=== PATIENT | male | born 1945 | race Caucasian/White ===

== ENCOUNTER 2016-10-09 17:58 | Emergency (ER) ==
[2016-10-09 18:11] VITALS: BP 148/105; TEMP 98.4; BMI 31.5
--- NOTE | 2016-10-09 18:42 | ED.PDOC ---
General ED Provider: Dr. HEIDY MA Chief Complaint: Fall Stated Complaint: FALL Time Seen by Physician: 18:00 (ARRIVED IN NO DISTRESS ) Mode of Arrival: Stretcher Information Source: Patient Exam Limitations: No limitations Primary Care Provider: YANN RODRÍGUEZ Nursing and Triage Documentation Reviewed and Agree: Yes Trauma/Injury Complaint Exam - Trauma Complaint/Exam Location of Pain or Injury: Reports: Head, Neck, Chest, Abdomen, Back Mechanism of Injury: Reports: Fall Onset/Duration: TODAY Symptoms Are: Resolved Timing of Treatment: Immediate Initial Severity: Mild Current Severity: Mild Character: Reports: Aching Aggravating: Reports: None Alleviating: Reports: None Associated Signs and Symptoms: Denies: LOC, Confusion, Memory loss, Lethargy, Vomiting, Bleeding, Bruising, Swelling, Extremity disuse, Painful respiration, Hoarseness, Dysphagia, Hemoptysis, Significant blood loss Penetrating Injury Risk Factors: Reports: None Nexus Low Risk Criteria: No evidence of intoxicat., No Altered LOC, No focal neuro deficit, No distracting injuries Immobilization Removed Post Exam: No Glascow Coma Scale (see protocol): 15 Trauma Findings: Absent: Racoon eyes, Hemotympanum, Nasal deformity, Dental tenderness, Dental injury, Dental malocclusion, Neck tenderness, Neck spasm, SubQ Air, Crepitus, Airway obstructed, Labored respirations, Decreased breath sounds, Weak pulses, Absent pulses, Abdominal distention, Pelvic instability, Meatal blood Skin Findings: Present: Abrasion (LEFT EAR) Review of Systems - Review Of Systems Constitutional: Reports: No symptoms Eyes: Reports: No symptoms Ears, Nose, Mouth, Throat: Reports: No symptoms Respiratory: Reports: No symptoms Cardiac: Reports: No symptoms GI: Reports: No symptoms : Reports: No symptoms Musculoskeletal: Reports: No symptoms Skin: Reports: No symptoms Neurological: Reports: No symptoms Endocrine: Reports: No symptoms Hematologic/Lymphatic: Reports: No symptoms All Other Systems: Reviewed and Negative Past Medical History - Past Medical History Previously Healthy: No Endocrine: Reports: DM 2 Cardiovascular: Reports: Hypertension, Other (Bradycaria ,old record - inoperable left carotid aneurysm) Respiratory: Reports: None Hematological: Reports: None Gastrointestinal: Reports: GERD Genitourinary: Reports: None, Other (old record-acute renal failure) Neuro/Psych: Reports: CVA, Anxiety, Depression, 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 ), Other (old recordneuropathy) Musculoskeletal: Reports: Arthritis, Back Pain, Joint Pain Cancer: Reports: None Other Pertinent Past Medical History: Left carotid aneurysm, Chronic back pain and chronic neck pain - Surgical History General Surgical History: Reports: Cholecystectomy, Back Surgery, Other ( carotid endarterectomy ) - Family History Family History: Reports: Heart (old record-father ID), Diabetes (old record-5 siaters 3 brothers), Cancer (old record-father), Other (old record- brother with aids) - Social History Smoking Status: Former smoker Hx Substance Use: No Alcohol Screening: None - Immunizations Influenza Vaccine within 12 Months: No Pneumococcal Vaccine up to Date: No Physical Exam - Physical Exam Appearance: Well-appearing, No pain distress, Well-nourished Eyes: MAXWELL, EOMI, Conjunctiva clear ENT: Ears normal, Nose normal, Oropharynx normal Respiratory: Airway patent, Breath sounds clear, Breath sounds equal, Respirations nonlabored Cardiovascular: RRR, Pulses normal, No rub, No murmur GI/: Soft, Nontender, No masses, Bowel sounds normal, No Organomegaly Musculoskeletal: Normal strength, ROM intact, No edema, No calf tenderness Skin: Warm, Dry (ABRASION LEFT EAR) Neurological: Sensation intact, Motor intact, Reflexes intact, Cranial nerves intact, Alert, Oriented Psychiatric: Affect appropriate, Mood appropriate Critical Care Note - Critical Care Note Total Time (mins): 0 Course - Course Orders, Labs, Meds: Orders Category Date Time Status CT ABDOMEN/PELVIS WO CONTRAST Stat RADS 10/09/16 18:[address] CERVICAL SPINE W/O CONTRAST Stat RADS 10/09/16 18:[address] CHEST W/O CONTRAST Stat RADS 10/09/16 18:[address] HEAD W/O CONTRAST Stat RADS 10/09/16 18:[address] LUMBAR SPINE W/O CONTRAST Stat RADS 10/09/16 18:[address] THORACIC SPINE W/O CONTRAST Stat RADS 10/09/16 18:38 Ordered Vital Signs: Temp Pulse Resp BP Pulse Ox 10/09/16 18:01 98.4 F 114 H 20 148/105 H 93 L Departure - Departure Time of Disposition: 20:00 Disposition: HOME SELF-CARE Discharge Problem: Injury of head Qualifiers: Encounter type: initial encounter Qualifier Code: (S09.90XA) Unspecified injury of head, initial encounter Instructions: Head Injury (ED) Condition: Good Pt referred to PMD for follow-up: No Allergies/Adverse Reactions: Allergies No Known Allergies Allergy (Verified 05/07/16 13:00) Home Medications: Ambulatory Orders Metformin HCl 1,000 mg PO BID 05/01/15 Omeprazole [Prilosec] 20 mg PO QDAC 05/01/15 Pregabalin [Lyrica] 100 mg PO TID 05/01/15 Temazepam 30 mg PO BEDTIME 05/01/15 Budesonide/Formoterol Fumarate [Symbicort 80-4.5 Mcg Inhaler] 2 puff IH BID #1 inh 01/15/16 Morphine Sulfate [Morphine Sulfate Tab] 15 mg PO Q8H #1 tablet 01/26/16
--- NOTE | 2016-10-09 19:45 | CT ---
Exam: CT exam of the brain without intravenous contrast. Comparison: 01/19/2016. Reason for exam: Pain. FINDINGS: Densely calcified plaque is seen in the left vertebral artery and both internal carotid a rteries. No acute intracranial hemorrhage, mass effect, or territorial infarction. There is similar appearing prominence of the lateral ventricles with temporal horns. Ex vacuo dilatation is seen in the left posterior horn from previous infarct. Hypodensities in the basal gangliar consistent with old lacun ar infarcts. Hypodensity in the right frontal lobe adjacent to the lateral ventricle may represent chronic small vessel disease or old infarct. Imaging findings are not significantly changed when co mpared to the previous exam performed 01/19/2016. There is no extraaxial fluid collection. The calvarium is intact without displaced fracture. The par anasal sinuses and mastoid air cells are unopacified. Wojciech cisterna magna or posterior fossa cyst. There is mild cerebellar atrophy. Impression: 1. No acute intracranial findings. 2. Parenchymal changes consistent with old infarcts, microvascular disease, and senescent change. 3. Densely calcified left vertebral and bilateral internal carotid arteries. Report faxed at [phone] hours on 10/09/2016
--- NOTE | 2016-10-09 19:51 | CT ---
EXAM: CT thoracic spine without intravenous contrast 10/09/2016. Sagittal and coronal reformatted images obtained HISTORY: Trauma COMPARISON: 01/19/2016 FINDINGS: The vertebral bodies of thoracic spine appear intact without evidence of acute fracture. Multilevel chronic degenerative endplate change. Multilevel anterior wedging configuration. Flowi ng anterior osteophyte formation throughout the central lower aspect of the thoracic spine appears s imilar to the prior study. Chronic facet arthropathy. The facet joints align normally. No fracture or subluxation identified at any level. IMPRESSION: No acute post traumatic osseous abnormality of the thoracic spine.
--- NOTE | 2016-10-09 19:52 | CT ---
EXAM: CT scan thorax without contrast HISTORY: Trauma COMPARISON: CT scan thorax 01/19/2016 FINDINGS: Contiguous axial images obtained through the thorax without contrast utilizing 5-mm colli mation. Sagittal and coronal reconstructions were imaged and reviewed.. The thoracic inlet is unre markable. There are subcentimeter prevascular pretracheal lymph nodes. Hilar structures not well e valuated without contrast. The heart is normal in size with coronary artery calcification There is a 8 mm opacity posteriorly within the right upper lobe which merits follow-up. There is minimal at electasis at the left lung base. There is a simple cyst upper pole left kidney.. Review of bone win dows reveals no evidence of lytic or blastic lesions. Degenerative changes are seen within the mid lower thoracic spine. IMPRESSION: No acute intrathoracic findings. New 8 mm opacity right upper lobe which merits follow-up. Minimal left basilar atelectasis.. Prior cholecystectomy.
--- NOTE | 2016-10-09 19:52 | CT ---
EXAM: CT lumbar spine without intravenous contrast 10/09/2016. Sagittal and coronal reformatted im ages obtained HISTORY: Trauma COMPARISON: 01/19/2016 FINDINGS: Anatomic alignment appears stable. The vertebral bodies appear intact without evidence o f acute fracture. Multilevel chronic degenerative disc disease. Multilevel disc space narrowing wi th endplate erosion. These findings appear similar to the prior study Chronic facet arthropathy also appears similar to the previous examination. There is no acute fracture or subluxation at any level. IMPRESSION: No acute post traumatic osseous abnormality of the lumbar spine.
--- NOTE | 2016-10-09 19:53 | CT ---
EXAM: CT of the cervical spine without contrast. HISTORY: Injury. PROCEDURE: Contiguous axial CT images of the cervical spine without contrast with coronal and sagit berna reformats. FINDINGS: There is normal alignment of the cervical vertebral bodies and facets. The vertebral body heights are maintained. There is multilevel disc space narrowing. There are posterior osteophytes at multiple levels of the cervical spine. There is multilevel facet arthropathy. There is a moder ate disc bulge at C4-C5 which is not well visualized by CT. The C1-2 relationship is maintained. No prevertebral soft tissue abnormality. Impression: No evidence of fracture. Normal alignment of the cervical spine with degenerative changes as described. Moderate disc bulge at C4-C5.
--- NOTE | 2016-10-09 20:09 | CT ---
Exam: CT exam of the abdomen pelvis without intravenous contrast. Comparison: 05/07/2016. Reason for exam: Trauma. FINDINGS: Dependent atelectasis is seen in the partially imaged lung bases. 1.3 cm hypodensity in the right hepatic lobe. No obvious intrahepatic ductal dilatation. The gallb ladder is been removed. There is an only fat containing para esophageal hernia. The spleen, adrenal glands, and pancreas are grossly unremarkable. Similar appearing left renal cyst. No hydronephrosis, nephrolithiasis, or hydroureter. No focal small bowel dilatation or transition point. The appendix is not seen. No inflammatory changes are seen within the mesenteric or pelvic fat. There is no pelvic free fluid . No intra-abdominal free air. Diverticular disease is seen throughout the descending and rectosigmoid colon. No osteoblastic or osteolytic lesions. Moderate degenerative changes are seen throughout the thoracolumbar spine with bridging anterior ost eophyte formation and facet hypertrophy. There is exaggeration of the lumbar lordotic curve. Similar appearing inguinal hernias. Impression: 1. No acute traumatic findings are seen within the abdomen or pelvis. 2. Diverticulosis without diverticulitis. 3. Hepatic steatosis. 4. Hiatal hernia. Image interpretation faxed at 2002 hours on 10/09/2016
== END 2016-10-10 09:35 | disposition home or self-care (01) ==
LOC: ED 17:58
DX: S09.90XA Unspecified injury of head, initial encounter (principal); M54.2 Cervicalgia; R07.89 Other chest pain; R10.9 Unspecified abdominal pain; M54.9 Dorsalgia, unspecified; R91.1 Solitary pulmonary nodule; W19.XXXA Unspecified fall, initial encounter
CPT/HCPCS: 99283

== ENCOUNTER 2017-05-29 08:32 | Inpatient (IN) ==
[2017-05-29] MEDS ORDERED: SODIUM CHLORIDE 1,000 ML IV STA (08:40)
[2017-05-29] MEDS ORDERED: CARDIZEM INJ ONE ×3 (09:20→23:18)
[2017-05-29] MEDS: CARDIZEM INJ IVP STA ×2 (09:22→09:23)
[2017-05-29] MEDS ORDERED: CARDIZEM INJ 125 MG in SODIUM CHLORIDE 100 ML IV SCH ×2 (09:30→10:00)
--- NOTE | 2017-05-29 10:07 | CT ---
EXAM: CT scan of the head without contrast HISTORY: Fall TECHNIQUE: Imaging of the head was performed without intravenous contrast. 5 mm thin axial images a nd coronal and sagittal images were provided for interpretation. Comparison CT scan of the head of 10/15/2016. FINDINGS: The lateral ventricles and cortical sulci are prominent from atrophy. Low density changes are seen within the supratentorial white matter. There is stable appearance of encephalomalacia see n within the left occipital lobe. There is no mass effect. Small old lacunar infarcts are seen with in the basal ganglia bilaterally. There are no extraaxial collections. The basal cisterns are paten t. There is mucosal thickening seen within the left maxillary sinus. The remainder of the paranasal sinuses and mastoid air cells are otherwise clear. IMPRESSION: No acute traumatic abnormalities are seen. Stable appearance of an old left occipital lobe infarct. Chronic small vessel ischemic changes seen within the supratentorial white matter.
--- NOTE | 2017-05-29 10:32 | CT ---
EXAM: CT of the lumbar spine without contrast. TECHNIQUE: Helical CT of the lumbar spine was performed without contrast with coronal and sagittal r econstructions. COMPARISON: Lumbar spine CT from 10/09/[address] from today HISTORY: Trauma FINDINGS: There is no compression or subluxation. Alignment is anatomic. There are no pars defects . There is no bony effacement the canal. There is no evidence for laminar or transverse process or s pinous process fracture. The pedicles are intact. The facets are anatomically aligned. Soft tissue s demonstrate no acute abnormality. There is no acute abnormality seen in the visualized portion of the bony pelvis. There is advanced degenerative change. There are five lumbar-type vertebral bodies. There is a hiatal hernia. There is advanced calcific atherosclerosis. There is colonic diverticulos is. IMPRESSION: 1. No acute abnormality in the lumbar spine. 2. Advanced degenerative changes and soft tissue findings as above.
--- NOTE | 2017-05-29 10:35 | CT ---
EXAM: CT abdomen pelvis without contrast HISTORY: Fall COMPARISON: None TECHNIQUE: CT abdomen pelvis performed without intravenous contrast. Coronal and sagittal reformatt ed images obtained. FINDINGS: Moderate atherosclerosis. Moderate right and small left fat containing inguinal hernia. Colonic diverticulosis. There is subcutaneous edema overlying the left posterior thigh with this reg ion, incompletely imaged. The bones are demineralized. Sacroiliac joints intact. No fracture or di slocation. Mild osteoarthritis of the hips with small osteophyte formation. Degenerative change in t he spine. IMPRESSION: 1. No fracture or dislocation. 2. Subcutaneous edema overlying left posterior thigh, likely contusion. 3. Chronic and incidental findings as described.
--- NOTE | 2017-05-29 10:42 | CT ---
EXAM: CT cervical spine without contrast. TECHNIQUE: Axial CT of the cervical spine was performed without contrast with coronal and sagittal r econstructions. HISTORY: Trauma and neck pain COMPARISON: Cervical spine CT from 10/09/[address] from today FINDINGS: There is no acute fracture or subluxation. There is a modest scoliosis. There is no acute bony effacement of the canal or the foramina. The dens is intact. The craniocervical junction is a natomically aligned. The visualized portion of the temporal bones is normal. The facets are proper ly aligned. There is no evidence for transverse or spinous process fracture. The lamina are intact. There is very advanced degenerative disc disease particularly at C5-6 and C6-7. There are no upper thoracic posterior rib fractures. There is no apical pneumothorax. There are ext ensive left upper lung pulmonary infiltrates partially visualized. The prevertebral soft tissues are normal thickness. Visualized intracranial contents show no acute abnormality. There is advanced calc ific atherosclerosis. IMPRESSION: 1. No acute fracture in the cervical spine. 2. Advanced degenerative changes. 3. Left upper lobe pulmonary infiltrates.
--- NOTE | 2017-05-29 10:42 | CT ---
EXAM: CT thoracic spine without contrast TECHNIQUE: Helical CT of the thoracic spine was performed without contrast with coronal and sagittal reconstructions COMPARISON: Cervical and lumbar spine CT from today and thoracic spine CT from 10/09/2016 HISTORY: Trauma FINDINGS: There is no acute fracture or dislocation or subluxation. There is a mild scoliosis. There is no compression fracture. There is no bony effacement of the canal. The lamina and facets are in tact. There is no transverse or spinous process fracture. There are no rib fractures seen. There i s no pneumothorax in the visualized lung carson. There are very extensive left upper lobe multifocal pulmonary infiltrates which are new compared to the earlier CT. There is advanced calcific atheroscl erosis. There is a hiatal hernia. There are advanced degenerative changes with multifocal disc space narrowing and osteophyte formation. There is flowing anterior osteophytosis seen anteriorly in the lower thoracic region. IMPRESSION: 1. No acute bony abnormality in the thoracic spine. No bony effacement the canal. 2. New multifocal left upper lobe infiltrates. Would recommend correlation with chest x-ray or ches t CT. 3. Very advanced degenerative changes in the thoracic spine. 4. Other soft tissue findings as above.
[2017-05-29] MEDS ORDERED: VANCOMYCIN 1,000 MG in SODIUM CHLORIDE 200 ML IV STA (11:19)
[2017-05-29] MEDS ORDERED: ELIQUIS PO STA (11:22)
--- NOTE | 2017-05-29 11:25 | ED.PDOC ---
General ED Provider: Dr. HEIDY MA Chief Complaint: Fall Stated Complaint: fall Time Seen by Physician: 08:32 Mode of Arrival: Ambulance Information Source: Patient, EMT Exam Limitations: Clinical condition Primary Care Provider: YANN RODRÍGUEZ Nursing and Triage Documentation Reviewed and Agree: Yes Reviewed sepsis parameters & appropriate labs ordered?: Yes System Inflammatory Response Syndrome: Pulse >90 BPM Sepsis Protocol: For patient's 13 years and over: Temp is 96.8 and below OR 101 and greater Pulse >90 BPM Resp >20/minute Acutely Altered Mental Status Are patient's symptoms suggestive of a new infection, such as: -Pneumonia -Skin, Soft Tissue -Endocarditis -UTI -Bone, Joint Infection -Implantable Device -Acute Abdominal Infection -Wound Infection -Meningitis -Blood Stream Catheter Infection -Unknown Miscellaneous Complaint Exam - Complex/Multi-System Complaint/Exam Onset/Duration: found on the fllor since last night in a pool of urine arrived aox3 Symptoms Are: Still present Episodes Lasting: Hours Initial Severity: Moderate Current Severity: Moderate Location of Pain: 0 Pain Radiates to: 0 Character: 0 Aggravatin Alleviatin Associated Signs and Symptoms: Reports: Agitation, Cough, Palpitations, Back pain (mild ). 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 Quality Indicators for AMI: EKG in 10min. Quality Indicator For Non-Traumatic Chest Pain/Syncope: EKG Performed Review of Systems - Review Of Systems Constitutional: Reports: Malaise, Weakness Eyes: Reports: No symptoms Ears, Nose, Mouth, Throat: Reports: No symptoms Respiratory: Reports: Cough Cardiac: Reports: Palpitations GI: Reports: No symptoms : Reports: No symptoms Musculoskeletal: Reports: Back pain Skin: Reports: No symptoms Neurological: Reports: No symptoms Endocrine: Reports: No symptoms Hematologic/Lymphatic: Reports: No symptoms All Other Systems: Reviewed and Negative Past Medical History - Past Medical History Previously Healthy: No Endocrine: Reports: DM 2 Cardiovascular: Reports: Hypertension, Other (Bradycaria ,old record - inoperable left carotid aneurysm) Respiratory: Reports: None Hematological: Reports: None Gastrointestinal: Reports: GERD Genitourinary: Reports: None, Other (old record-acute renal failure) Neuro/Psych: Reports: CVA, Anxiety, Depression, 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 ), Other (old recordneuropathy) Musculoskeletal: Reports: Arthritis, Back Pain, Joint Pain Cancer: Reports: None Other Pertinent Past Medical History: Left carotid aneurysm, Chronic back pain and chronic neck pain - Surgical History General Surgical History: Reports: Cholecystectomy, Back Surgery, Other ( carotid endarterectomy ) - Family History Family History: Reports: Heart (old record-father CT), Diabetes (old record-5 siaters 3 brothers), Cancer (old record-father), Other (old record- brother with aids) - Social History Smoking Status: Former smoker Hx Substance Use: No Alcohol Screening: None - Immunizations Influenza Vaccine within 12 Months: No Pneumococcal Vaccine up to Date: No Physical Exam - Physical Exam Appearance: Ill-appearing Eyes: MAXWELL, EOMI, Conjunctiva clear ENT: Ears normal, Nose normal, Oropharynx normal Respiratory: Airway patent, Breath sounds clear, Breath sounds equal, Respirations nonlabored Cardiovascular: Irregular rhythm, Tachycardia GI/: Soft, Nontender, No masses, Bowel sounds normal, No Organomegaly Musculoskeletal: Normal strength, ROM intact, No edema, No calf tenderness Skin: Warm, Dry, Normal color Neurological: Sensation intact, Motor intact, Reflexes intact, Cranial nerves intact, Alert, Oriented Psychiatric: Affect appropriate, Mood appropriate Interpretation - Radiology Interpretation Radiology Interpretation By: Radiologist Radiology Results: No acute changes Procedures - IV/Art Line Insertion Location: left Type of Line: External Jugular (by rafati first attempt , the area was preped with betadine) Number of Attempts: 1 Blood Return Positive: Yes Re-Evaluation - Re-Evaluation Time of Re-Evaluation: 10:00 Status: Improved Vital Signs Stable: Yes Pain Level: 0 Appearance: NAD Lungs: Clear Neuro: Alert and Oriented X3 CV: Other (tachycaric irregular) Physician Notification - Case Discussed Physician Notified: carina Time of Notification: 11:26 Admit To: Inpatient, SCU Critical Care Note - Critical Care Note Total Time (mins): 0 Course - Course Hematology/Chemistry: 05/29/17 09:00 05/29/17 09:00 Orders, Labs, Meds: Lab Review 05/29/17 05/29/17 05/29/17 08:38 09:00 09:00 WBC 23.30 H RBC 5.18 Hgb 14.8 Hct 44.5 MCV 85.9 MCH 28.6 MCHC 33.3 RDW Coeff of Franko 14.3 Plt Count 230 Immature Gran % (Auto) 1.2 Neut % (Auto) 90.4 Lymph % (Auto) 1.7 L [place] % (Auto) 6.6 Eos % (Auto) 0.0 Baso % (Auto) 0.1 Immature Gran # (Auto) 0.3 Neut # 21.1 H Lymph # 0.4 L [place] # 1.5 Eos # 0.0 Baso # 0.0 Puncture Site r brach O2 Saturation 99.0 ABG pH 7.43 ABG pCO2 23.0 L ABG pO2 120.0 H ABG HCO3 15 L ABG Total CO2 16 L ABG Base Excess -9 L James Test + FiO2 % 21.0 Sodium 140 Potassium 3.9 Chloride 108 H Carbon Dioxide 14 L Anion Gap 21.9 BUN 43 H Creatinine 1.53 H Estimated GFR (MDRD) 45.00 BUN/Creatinine Ratio 28.10 Glucose 354 H Lactic Acid Calcium 10.1 Total Bilirubin 1.4 H AST 51 H ALT 30 Alkaline Phosphatase 106 Total Creatine Kinase 2993 CK-MB (CK-2) 10.5 H* CK-MB (CK-2) % 0.64827 Troponin I 0.1960 Total Protein 7.6 Albumin 3.1 L Globulin 4.5 Albumin/Globulin Ratio 0.69 Procalcitonin TSH Free T4 05/29/17 05/29/17 05/29/17 09:00 09:00 09:00 WBC RBC Hgb Hct MCV MCH MCHC RDW Coeff of Franko Plt Count Immature Gran % (Auto) Neut % (Auto) Lymph % (Auto) [place] % (Auto) Eos % (Auto) Baso % (Auto) Immature Gran # (Auto) Neut # Lymph # [place] # Eos # Baso # Puncture Site O2 Saturation ABG pH ABG pCO2 ABG pO2 ABG HCO3 ABG Total CO2 ABG Base Excess James Test FiO2 % Sodium Potassium Chloride Carbon Dioxide Anion Gap BUN Creatinine Estimated GFR (MDRD) BUN/Creatinine Ratio Glucose Lactic Acid 59.6 H Calcium Total Bilirubin AST ALT Alkaline Phosphatase Total Creatine Kinase CK-MB (CK-2) CK-MB (CK-2) % Troponin I Total Protein Albumin Globulin Albumin/Globulin Ratio Procalcitonin 1.85 TSH 0.408 Free T4 1.56 H Orders Category Date Time Status ADMIT PATIENT INPATIENT .TO SCU (MONITORED BED) ADMISSION 05/29/17 11:16 Ordered ABG DRAW REQUEST Stat CARDIO 05/29/17 08:38 Completed EKG-(ED ONLY) Stat CARDIO 05/29/17 08:37 Completed ACTIVITY .BR with BRP CARE 05/29/17 11:16 Ordered BLOOD GLUCOSE MONITORING ACCUCHECK Q6H CARE 05/29/17 11:16 Ordered GIVE HS SNACK 2100 CARE 05/29/17 11:19 Ordered INTAKE & OUTPUT Q8HR CARE 05/29/17 11:16 Ordered TELEMETRY MONITORING TELE CARE 05/29/17 11:17 Ordered VITAL SIGNS Q4HR CARE 05/29/17 11:16 Ordered ADA 1800 JAEL. DIET DIETARY 05/29/17 Lunch Ordered HS SNACK DIETARY 05/29/17 Dinner Ordered ED IV/MEDIPORT/POWERPORT .ONCE EMERGENCY 05/29/17 08:37 Active ABG Stat LAB 05/29/17 08:38 Completed BLOOD CULTURE (ED ONLY) Stat LAB 05/29/17 09:00 Received CBC W/ AUTO DIFF DAILY@0600 LAB 05/30/17 06:00 Ordered CBC W/ AUTO DIFF DAILY@0600 LAB 05/31/17 06:00 Ordered CBC W/ AUTO DIFF Stat LAB 05/29/17 09:00 Completed COMPREHENSIVE METABOLIC PANEL DAILY@0600 LAB 05/30/17 06:00 Ordered COMPREHENSIVE METABOLIC PANEL DAILY@0600 LAB 05/31/17 06:00 Ordered COMPREHENSIVE METABOLIC PANEL Stat LAB 05/29/17 09:00 Completed CREATINE KINASE Q8H LAB 05/29/17 17:30 Ordered CREATINE KINASE Q8H LAB 05/30/17 01:30 Ordered CREATINE KINASE Stat LAB 05/29/17 09:00 Completed FREE T4 (FREE THYROXINE) Stat LAB 05/29/17 09:00 Completed LACTIC ACID Stat LAB 05/29/17 09:00 Completed PROCALCITONIN Stat LAB 05/29/17 09:00 Completed THYROID STIMULATING HORMONE Stat LAB 05/29/17 09:00 Completed TROPONIN I Q8H LAB 05/29/17 17:30 Ordered TROPONIN I Q8H LAB 05/30/17 01:30 Ordered TROPONIN I Stat LAB 05/29/17 09:00 Completed URINALYSIS C & S IF INDICATED Stat LAB 05/29/17 08:37 Uncollected 0.9 % Sodium Chloride [Saline Flush] MEDS 05/29/17 08:37 Active 1 syr IVF PRN PRN 0.9 % Sodium Chloride [Sodium Chloride] 100 ml MEDS 05/29/17 10:00 Active Diltiazem HCl Inj [Cardizem Inj] 125 mg IV 5 mg/hr Apixaban [Eliquis] MEDS 05/29/17 21:00 Ordered 5 mg PO BID Apixaban [Eliquis] MEDS 05/29/17 11:22 Stat 5 mg PO ONCE STA Ceftriaxone Sodium [Rocephin] 1 gm MEDS 05/29/17 11:30 Ordered 0.9 % Sodium Chloride [Sodium Chloride] 50 ml IV DAILY Diltiazem HCl Inj [Cardizem Inj] MEDS 05/29/17 09:17 Discontinued 20 mg IVP ONCE STA Diltiazem HCl Inj [Cardizem Inj] MEDS 05/29/17 09:20 Discontinued 50 mg .ROUTE .STK-MED ONE Sodium Chloride 0.9% [Sodium Chloride] 1,000 ml MEDS 05/29/17 08:40 Active IV 125 mls/hr Sodium Chloride 0.9% [Sodium Chloride] 1,000 ml MEDS 05/29/17 11:30 Ordered IV 75 mls/hr Vancomycin HCl [Vancomycin] 1,000 mg MEDS 05/29/17 11:19 Ordered 0.9 % Sodium Chloride [Sodium Chloride] [address] CERVICAL SPINE W/O CONTRAST Stat RADS 05/29/17 08:[address] CHEST W/O CONTRAST Stat RADS 05/29/17 11:[address] HEAD W/O CONTRAST Stat RADS 05/29/17 08:[address] LUMBAR SPINE W/O CONTRAST Stat RADS 05/29/17 08:[address] PELVIS W/O CONTRAST Stat RADS 05/29/17 08:[address] THORACIC SPINE W/O CONTRAST Stat RADS 05/29/17 08:39 Completed Medications Generic Name Dose Route Start Last Admin Trade Name Tam PRN Reason Stop Dose Admin Apixaban 5 mg 05/29/17 21:00 Eliquis PO BID SHAHID Sodium Chloride 1,000 mls @ 125 mls/hr 05/29/17 08:40 05/29/17 09:21 Sodium Chloride IV 05/29/17 16:39 125 mls/hr .Q8H STA Administration Diltiazem HCl 125 mg/ Sodium 125 mls @ 5 mls/hr 05/29/17 10:00 05/29/17 10:27 Chloride IV 10 mg/hr .Q24H SHAHID 10 mls/hr Protocol Titration 5 MG/HR Ceftriaxone Sodium 1 gm/ 50 mls @ 75 mls/hr 05/29/17 11:30 Sodium Chloride IV DAILY SHAHID Sodium Chloride 1,000 mls @ 75 mls/hr 05/29/17 11:30 Sodium Chloride IV .[id number] SHAHID Vancomycin HCl 1,000 mg/ 200 mls @ 100 mls/hr 05/29/17 11:19 Sodium Chloride IV 05/29/17 13:18 ONCE STA Sodium Chloride 1 syr 05/29/17 08:37 05/29/17 09:21 Saline Flush IVF 1 syr PRN PRN Administration To flush IV Discontinued Medications Generic Name Dose Route Start Last Admin Trade Name Tam PRN Reason Stop Dose Admin Apixaban 5 mg 05/29/17 11:22 Eliquis PO 05/29/17 11:23 ONCE STA Diltiazem HCl 20 mg 05/29/17 09:17 05/29/17 09:23 Cardizem Inj IVP 05/29/17 09:18 Not Given ONCE STA Vital Signs: Temp Pulse Resp BP Pulse Ox 05/29/17 10:27 177 H 136/93 H 05/29/17 09:38 155 H 154/97 H 05/29/17 08:32 97.4 F L 185 H 20 191/112 H 0 L Departure - Departure Time of Disposition: 11:26 Disposition: HOME SELF-CARE Discharge Problem: Sepsis Afib Qualifiers: Atrial fibrillation type: unspecified Qualified Code(s): I48.91 - Unspecified atrial fibrillation Instructions: A-fib (Atrial Fibrillation) (ED) Condition: Good Pt referred to PMD for follow-up: Yes Allergies/Adverse Reactions: Allergies No Known Allergies Allergy (Verified 05/29/17 09:40) Home Medications: Ambulatory Orders Metformin HCl 1,000 mg PO BID 05/01/15 Omeprazole [Prilosec] 20 mg PO QDAC 05/01/15 Pregabalin [Lyrica] 100 mg PO TID 05/01/15 Temazepam 30 mg PO BEDTIME 05/01/15 Budesonide/Formoterol Fumarate [Symbicort 80-4.5 Mcg Inhaler] 2 puff IH BID #1 inh 01/15/16 Morphine Sulfate [Morphine Sulfate Tab] 15 mg PO Q8H #1 tablet 01/26/16
[2017-05-29] MEDS ORDERED: ROCEPHIN 1 GM in SODIUM CHLORIDE 50 ML IV SCH (11:30)
[2017-05-29] MEDS ORDERED: VANCOMYCIN ONE (12:07)
--- NOTE | 2017-05-29 12:24 | CT ---
EXAM: CT chest without contrast HISTORY: Cough COMPARISON: CT thoracic spine same day and CT chest 10/09/2016 TECHNIQUE: CT chest performed without intravenous contrast. Coronal and sagittal reformatted images obtained. FINDINGS: Thoracic inlet unremarkable. Heart normal in size. Trace pericardial fluid anteriorly. Coronary calcifications. Moderate hiatal hernia. Stable liver cyst and left renal cyst. Colonic di verticulosis, incompletely imaged. Several stable mediastinal lymph nodes measuring up to 1 cm in sh ort axis. Aorta normal in caliber. Mild to moderate atherosclerosis. Bilateral lower airway thick ening. Patchy ground-glass in the right middle lobe. Multifocal consolidation with ground-glass and nodular infiltrates throughout the left lung. Central airway patent. No pleural effusion or pneumo thorax. No acute abnormalities of the bones. IMPRESSION: 1. Multifocal consolidation with ground-glass and nodular infiltrates throughout the left lung. Findi ngs most likely represent multifocal pneumonia or other infectious etiology, including atypical infec tious process. History indicates trauma and it would be difficult to entirely exclude a component of contusion. CT follow-up is recommended in 6 weeks given the areas of nodularity. 2. Bilateral lower airway thickening with patchy ground-glass in the right middle lobe, likely small airways infection/inflammation. 3. Several stable borderline enlarged mediastinal lymph nodes, nonspecific. 4. Trace pericardial fluid anteriorly. Report faxed.
[2017-05-29 13:32] VITALS: BMI 28.2
[2017-05-29] MEDS ORDERED: LANOXIN IVP STA ×2 (15:31→17:57)
[2017-05-29] MEDS: SODIUM CHLORIDE 1,000 ML IV SCH (15:40)
[2017-05-29] MEDS ORDERED: LIDOCAINE 1% 20 ML MDV ONE (16:16)
[2017-05-29] MEDS ORDERED: CARDIZEM INJ IVP STA (16:44)
--- NOTE | 2017-05-29 17:00 | DI ---
EXAM: Single view of the chest. History: Right central line placement. Comparison: Chest CT 05/29/2017 Findings: Heart is borderline enlarged. No significant interval change in the multifocal left lung infiltrates. No pneumothorax. No central line is identified. No acute osseous abnormalities. Impression: 1. No central line identified. No pneumothorax. 2. No significant interval change in the multifocal left lung infiltrates
[2017-05-29] MEDS ORDERED: SODIUM CHLORIDE 100 ML IV ONE (17:18)
[2017-05-29] MEDS ORDERED: SODIUM BICARBONATE 8.4% IVP STA (17:46)
[2017-05-29] MEDS ORDERED: SODIUM BICARBONATE 7.5% ONE (17:52)
[2017-05-29] MEDS: CARDIZEM INJ 125 MG in SODIUM CHLORIDE 100 ML IV SCH (18:00)
[2017-05-29] MEDS: SOLU-MEDROL 125 MG IVP SCH ×2 (18:05→20:50)
[2017-05-29] MEDS ORDERED: SOLU-MEDROL 125 MG ONE (18:05)
--- NOTE | 2017-05-29 18:17 | PCM.PROG ---
Subjective: Patient was found on the floor, smelling of urine, BM all over. Dont know how long he was on the floor. PD brought patient to ER, Found to be in rapid Atrial fibrillation, Metabolic acidosis, Patient responding to verbal stimuli. rapid breathing. Objective: Vitals: T=98.7 F, P=160, R=19, TK=790/100, SPO2=95 HEENT: Atraumatic, normocephalic, mucosa dry, sick looking Neck: Neck supple, no JVD, no bruit no lymphadenopathy Lungs: Lungs bilateral air entry equal and basal crackles, CVS: S1-S2 normal Rapid atral fibrillation, no murmur or gallop, no S3 or S4 Abdomen: Abdomen soft and nontender. Bowel sounds are hyper active no ascites or organomegaly Extremities: No edema, cyanosis, or clubbing Neurological: Awake alert and oriented x3, no motor deficit, cranial nerves II through XII are intact, no CVA Skin: Skin has no open lesions, dry skin Plan: Rapid atrial fibrillation, CAP, UNCONTROLLED DM Metabolic acidosis with respiratory alkalosis CAD CHRONIC PAIN SYNDROME. COPD HTN PLAN FLUID BOLUS, CARDIZEM DRIP @ 15 DIGOXIN 500 MCG IVP SOLUMEDROL DUO NEBS AZACTAM. CARDIZEM PO 60 Q 8 HRS
[2017-05-29] MEDS ORDERED: SODIUM BICARBONATE 7.5% IVP STA (18:34)
[2017-05-29] MEDS: FLAGYL PO SCH ×2 (18:44→20:48)
[2017-05-29] MEDS: CARDIZEM PO SCH ×2 (18:44→20:47)
[2017-05-29] MEDS ORDERED: FLAGYL ONE (18:44)
[2017-05-29] MEDS: CATAPRES PO SCH ×2 (18:44→20:47)
[2017-05-29] MEDS: DUONEB NEB SCH ×2 (18:53→22:50)
[2017-05-29] MEDS ORDERED: AZACTAM ONE ×2 (19:26→19:44)
[2017-05-29] MEDS: AZACTAM 2 GM in SODIUM CHLORIDE 100 ML IV SCH ×2 (19:34→20:50)
[2017-05-29] MEDS: ELIQUIS PO SCH (20:47)
[2017-05-29] MEDS: HUMULIN R SUBCUT PRN (21:07)
[2017-05-30] MEDS ORDERED: SODIUM CHLORIDE 100 ML IV ONE (00:23)
[2017-05-30] MEDS ORDERED: AZACTAM ONE (02:35)
[2017-05-30] MEDS ORDERED: CARDIZEM ONE (02:36)
[2017-05-30] MEDS: CARDIZEM PO SCH ×3 (05:09→20:52)
[2017-05-30] MEDS: FLAGYL PO SCH ×3 (05:10→20:52)
[2017-05-30] MEDS: DUONEB NEB SCH ×4 (05:10→22:38)
[2017-05-30] MEDS: AZACTAM 2 GM in SODIUM CHLORIDE 100 ML IV SCH ×3 (05:10→20:51)
[2017-05-30] MEDS: HUMULIN R SUBCUT PRN ×4 (05:40→21:32)
[2017-05-30] MEDS ORDERED: CARDIZEM INJ ONE ×3 (09:28→18:12)
[2017-05-30] MEDS: SOLU-MEDROL 125 MG IVP SCH ×2 (09:52→20:51)
[2017-05-30] MEDS: ELIQUIS PO SCH ×2 (09:52→20:52)
[2017-05-30] MEDS: CATAPRES PO SCH ×2 (09:53→20:52)
[2017-05-30] MEDS: SODIUM CHLORIDE 1,000 ML IV SCH ×2 (09:54→15:52)
--- NOTE | 2017-05-30 13:44 | CT ---
EXAM: CT abdomen pelvis without contrast HISTORY: Abdominal pain COMPARISON: CT abdomen pelvis 10/09/2016 and multiple priors TECHNIQUE: Serial axial images of the abdomen pelvis were performed from the lung bases through the inferior pelvis without contrast. These were viewed in multiple planes. FINDINGS: The lung bases demonstrate bilateral lower lobe airway thickening with a 2.0 x 2.2 cm left lower lobe mass-like consolidation. Additional nodular consolidation is noted dependently in the li ngula measuring 1.1 cm with consolidation in the dependent aspect of the left lower lobe. Evaluation is limited due to lack of contrast. There is a small hiatal hernia. There is a low atten uation lesion in the hepatic dome which is unchanged since prior examination measuring 1.3 cm in diam eter. No additional hepatic lesion is identified. The gallbladder has been removed. There is motio n artifact limiting this evaluation. The adrenal glands are normal. The right kidney is normal. Th e left kidney demonstrates a large low attenuation lesion measuring 4.9 cm with Hounsfield units cons istent with a cyst. The spleen is unremarkable. Pancreas is unremarkable. The stomach is minimally distended. The small bowel in the abdomen and pelvis is unremarkable on this evaluation limited due to patient m otion. The colon demonstrates diverticulosis with hazy ground-glass and thickening of the sigmoid co he as seen on image 121. There is no focal fluid collection or free air. The remaining colon is no rmal in appearance. There are surgical changes near the cecum likely representing prior appendectomy . There is moderate atherosclerotic disease. Urinary bladder is partially distended. The prostate is unremarkable. There is fat containing right inguinal hernia. The osseous structures demonstrate multilevel degenerative disease with no lytic or blastic lesion. IMPRESSION: 1. Mild hazy inflammation and wall thickening of the sigmoid colon with multiple diverticuli suggesti ve of early diverticulitis. 2. Mass-like consolidation in the left lower lobe with additional consolidations in the lingula in t he more dependent mass of the left lower lobe concerning for pneumonia. Follow-up CT after interval treatment is recommended to exclude underlying mass. 3. Small hiatal hernia and unchanged low attenuation hepatic cyst. 4. Stable left renal cyst. 5. The stable degenerative disease, atherosclerotic disease and right inguinal fat-containing hernia .
[2017-05-30] MEDS: MORPHINE SULFATE TAB PO SCH (17:57)
[2017-05-30] MEDS: CARDIZEM INJ 125 MG in SODIUM CHLORIDE 100 ML IV SCH (18:17)
[2017-05-31] MEDS: MORPHINE SULFATE TAB PO SCH ×3 (01:35→18:54)
[2017-05-31] MEDS: DUONEB NEB SCH ×4 (04:14→23:08)
[2017-05-31] MEDS: AZACTAM 2 GM in SODIUM CHLORIDE 100 ML IV SCH ×3 (04:28→21:41)
[2017-05-31] MEDS: FLAGYL PO SCH ×3 (04:29→21:40)
[2017-05-31] MEDS: CARDIZEM PO SCH ×3 (04:29→21:40)
[2017-05-31] MEDS: SODIUM CHLORIDE 1,000 ML IV SCH ×3 (04:30→20:09)
[2017-05-31] MEDS: HUMULIN R SUBCUT PRN ×3 (05:43→21:41)
[2017-05-31] MEDS: ELIQUIS PO SCH ×2 (09:23→21:40)
[2017-05-31] MEDS: CATAPRES PO SCH ×2 (09:23→21:41)
[2017-05-31] MEDS: SOLU-MEDROL 125 MG IVP SCH ×2 (09:23→21:41)
[2017-05-31] MEDS: ATIVAN IM PRN ×2 (09:27)
[2017-05-31] MEDS: CARDIZEM INJ 125 MG in SODIUM CHLORIDE 100 ML IV SCH ×2 (09:37→21:14)
[2017-05-31] MEDS ORDERED: CARDIZEM INJ ONE (20:57)
[2017-06-01] MEDS: MORPHINE SULFATE TAB PO SCH ×3 (03:34→18:12)
[2017-06-01] MEDS: FLAGYL PO SCH ×3 (04:29→20:40)
[2017-06-01] MEDS: AZACTAM 2 GM in SODIUM CHLORIDE 100 ML IV SCH ×3 (04:29→20:39)
[2017-06-01] MEDS: CARDIZEM PO SCH ×3 (04:29→20:40)
[2017-06-01] MEDS: HUMULIN R SUBCUT PRN ×4 (06:32→21:29)
[2017-06-01] MEDS: DUONEB NEB SCH ×3 (06:59→20:00)
[2017-06-01] MEDS ORDERED: K-DUR PO STA (08:21)
[2017-06-01] MEDS: CATAPRES PO SCH ×2 (10:38→20:40)
[2017-06-01] MEDS: ELIQUIS PO SCH ×2 (10:39→20:40)
[2017-06-01] MEDS: SODIUM CHLORIDE 1,000 ML IV SCH (10:40)
[2017-06-01] MEDS: SOLU-MEDROL 125 MG IVP SCH ×2 (10:41→20:39)
[2017-06-02] MEDS: MORPHINE SULFATE TAB PO SCH ×3 (03:00→17:57)
[2017-06-02] MEDS: DUONEB NEB SCH ×4 (05:27→21:00)
[2017-06-02] MEDS: FLAGYL PO SCH ×3 (05:59→21:10)
[2017-06-02] MEDS: CARDIZEM PO SCH ×3 (05:59→21:10)
[2017-06-02] MEDS: HUMULIN R SUBCUT PRN ×4 (06:24→21:09)
--- NOTE | 2017-06-02 10:04 | PN ---
DATE OF SERVICE: 05/31/17 SUBJECTIVE: The patient was admitted with rapid atrial fibrillation. The patient is still on the Cardizem drip. The patient was not able to wean off. Heart rate is still around 90 to 110. REVIEW OF SYSTEMS: CONSTITUTIONAL: No fever, no chills. HEENT: Normal. ENDOCRINE: No weight gain, no weight loss. CVS: No angina symptoms. No CHF symptoms. No palpitations. No atypical chest pain for CAD. No shortness of breath. No PND, no orthopnea. RESPIRATORY: Cough, no hemoptysis. GI: No nausea, no vomiting. No abdominal pain. : No hematuria. No polyuria. MUSCULOSKELETAL:. No joint swelling. PSYCHIATRIC: Not anxious. No depression. No suicidal thoughts. No homicidal thoughts. SKIN: Intact. No rash. PHYSICAL EXAMINATION: V/S: Blood pressure 159/83, respiratory rate 18m, heart rate 90, temperature 97.6. HEENT: Normocephalic, atraumatic. Mucosa dry. NECK: Supple. No JVD, no carotid bruit. No lymphadenopathy. LUNGS: Basilar lung crackles are present. Clear to auscultation. No rales or rhonchi. HEART: S1, S2 normal. No S3. No murmur, gallop or regurgitation. ABDOMEN: Soft, nontender. Bowel sounds active. No rigidity. No rebound or guarding. No CVA tenderness. EXTREMITIES: No clubbing, cyanosis or pedal edema. MUSCULOSKELETAL: No joint swelling. NEUROLOGIC: Awake, alert, oriented times three. No focal deficit. LYMPHATIC: No lymph nodes palpable. SKIN: Intact. LABS: Sodium 143, potassium 3.5, chloride 117, bicarb 17, BUN 37, creatinine 1.40, WBC 16.18, hgb 13.8, hct 40.3, plt count 171. ASSESSMENT: 1. Rapid atrial fibrillation 2. Bilateral pneumonia multifocal 3. Hypertension 4. Chronic pain syndrome 5. COPD PLAN: 1. Continue Cardizem 60mg Q 8 hours 2. DUO NEBS 3. Rocephin 4. Azactam 5. Flagyl 500mg Q 8 hours 6. IV fluids. TIME SPENT: More than 35 minutes MTDD
--- NOTE | 2017-06-02 11:05 | PN ---
DATE OF SERVICE: 05/30/17 SUBJECTIVE: The patient is admitted with change in mental status, pneumonia and rapid atrial fibrillation. The patient is still on the Cardizem drip. He gets agitated in between. REVIEW OF SYSTEMS: CONSTITUTIONAL: No fever, no chills. HEENT: Normal. ENDOCRINE: No weight gain, no weight loss. CVS: No angina symptoms. No CHF symptoms. No palpitations. No atypical chest pain for CAD. No shortness of breath. No PND, no orthopnea. RESPIRATORY: No cough, no hemoptysis. GI: No nausea, no vomiting. No abdominal pain. : No hematuria. No polyuria. MUSCULOSKELETAL:. No joint swelling. PSYCHIATRIC: Not anxious. No depression. No suicidal thoughts. No homicidal thoughts. SKIN: Intact. No rash. PHYSICAL EXAMINATION: V/S: Blood pressure 137/63, respiratory rate 28, heart rate 94, temperature 100.3 with saturation 95. HEENT: Normocephalic, atraumatic. Mucosa dry, Pallor positive. No icterus. NECK: Supple. No JVD, no carotid bruit. No lymphadenopathy. LUNGS: Basilar crackles. Clear to auscultation. No rales or rhonchi. HEART: S1, S2 normal. No S3. No murmur, gallop or regurgitation. ABDOMEN: Soft, nontender. Bowel sounds active. No rigidity. No rebound or guarding. No CVA tenderness. EXTREMITIES: No clubbing, cyanosis or pedal edema. MUSCULOSKELETAL: No joint swelling. NEUROLOGIC: Awake, alert, and sleeps back. No focal deficit. LYMPHATIC: No lymph nodes palpable. SKIN: Intact. LABS: WBC 16.18, hgb 13.8, hct 40.3, plt count 171, sodium 145, potassium 3.5, chloride 117, bicarb 17, BUN 37, creatinine 1.40, glucose 298 ASSESSMENT: 1. Status post fall 2. Acute one chronic renal failure 3. New onset atrial fibrillation 4. Rapid atrial fibrillation 5. Pneumonia multifocal 6. Chronic pain syndrome 7. Hypertension 8. Dyslipidemia PLAN: 1. Continue Cardizem drip 10mg 2. Cardizem 60 Q 8 hours 3. DUO NEBS 4. Azactam 5. Eliquis 5mg Twice day 6. Solu-Medrol 7. IV fluids TIME SPENT: More than 35 minutes MTDD
--- NOTE | 2017-06-02 11:11 | ED.PDOC ---
Procedures - IV/Art Line Insertion Location: wrist lt Invasive Line/IV Catheter Gauge: 24 Number of Attempts: 1 Blood Return Positive: Yes Invasive Line/IV Flushes Without Difficulty: Yes Conscious Sedation - Pre-op Assessment Weight: 169 lb 12.095 oz Surgical History: GALBLADDER - Medical History Past Medical History: Hypertension, Diabetes, CVA Other History: left carotid aneurysm - Physical Exam Heart Rate/Rhythm: Tachycardia, Irregular Rhythm
[2017-06-02] MEDS: ELIQUIS PO SCH ×2 (11:47→21:10)
[2017-06-02] MEDS: CATAPRES PO SCH ×2 (11:48→21:10)
[2017-06-02] MEDS: SOLU-MEDROL 125 MG IVP SCH ×2 (11:50→21:09)
--- NOTE | 2017-06-02 15:22 | DI ---
Exam: Single x-ray of the chest. Comparison: 05/29/2017. Reason for exam: Wheezing short of breath. FINDINGS: No pneumothorax. There is blunting of the left costophrenic angle with patchy airspace op acities in the left hemithorax. The right lung is clear. The imaged osseous structures appear gross ly unremarkable without acute fracture. Impression: Similar appearing patchy airspace opacities in the left hemithorax consistent with multi focal pneumo missael.
[2017-06-02] MEDS: AZACTAM 2 GM in SODIUM CHLORIDE 100 ML IV SCH ×3 (16:00→21:09)
[2017-06-02] MEDS: CARDIZEM INJ 125 MG in SODIUM CHLORIDE 100 ML IV SCH ×2 (21:11→21:12)
[2017-06-03] MEDS: MORPHINE SULFATE TAB PO SCH ×3 (03:13→18:40)
[2017-06-03] MEDS: CARDIZEM PO SCH ×3 (05:18→21:08)
[2017-06-03] MEDS: HUMULIN R SUBCUT PRN ×4 (05:18→21:09)
[2017-06-03] MEDS: AZACTAM 2 GM in SODIUM CHLORIDE 100 ML IV SCH ×2 (05:18→14:56)
[2017-06-03] MEDS: FLAGYL PO SCH ×3 (05:18→21:09)
[2017-06-03] MEDS: SODIUM CHLORIDE 1,000 ML IV SCH ×2 (07:21→14:56)
--- NOTE | 2017-06-03 08:47 | HP ---
DATE OF SERVICE: 05/29/17 CHIEF COMPLAINT/HISTORY OF PRESENT ILLNESS: The patient was found on the floor and don't know how long the patient was on the floor so the patient's called the [facility] and they brought the patient to the emergency room. The patient was in the feces and urine all over. Found to be in acute atrial fibrillation, rapid ventricular rate. WBC was 23,000, pneumonia multifocal. Dr. Medina gave some breathing treatments and started the patient on the Cardizem drip and admitted to the hospital for the treatment. ABG showed the pH 7.43, pCO2 23, pO2 120, D-Dimer 3, 050. REVIEW OF SYSTEMS: CONSTITUTIONAL: No fever, no chills. Weakness. Tiredness. Falls. HEENT: Normal. ENDOCRINE: No weight gain; no weight loss. CVS: No chest pain. No PND, no orthopnea. No shortness of breath. No PND, no orthopnea. RESPIRATORY: Cough, Congestion. No hemoptysis. GI: No nausea, no vomiting. No abdominal pain. No melena. : No hematuria. No polyuria. Found in the feces and the urine, don't know how long patient been on the floor. MUSCULOSKELETAL: No joint swelling. PSYCHIATRIC: Not anxious. No depression. No suicidal thoughts. No homicidal thoughts. SKIN: Intact, no open lesions. PAST MEDICAL HISTORY: CAD Hypertension Atrial fibrillation, new onset CVA Seizure disorder COPD Chronic pain syndrome Diverticulosis Osteoarthritis DJD spine Diabetes Depression Anxiety PAST SURGICAL HISTORY: Left carotid endarterectomy Cholecystectomy Cataract surgery PERSONAL HISTORY: Nicotine use and alcohol use. and lives with the . Family history is significant for the diabetes MEDICATIONS: Prilosec Metformin Lyrica Temazepam Symbicort Morphine ALLERGIES: No known allergies PHYSICAL EXAMINATION: V/S: Blood pressure 191/112, respiratory rate 20, heart rate 185, temperature 97.4 GENERAL: Sick looking man, fowl smelling. Response to the verbal stimuli and goes back to sleep. HEENT: Atraumatic, normocephalic. No scleral icterus. Pallor . Mucosa dry. NECK: Supple. No JVD, no bruit. No lymphadenopathy. No thyromegaly. HEART: Atrial fibrillation. No murmur. No cyanosis or clubbing. No ascites. LUNGS: Decreased and basilar crackles. Defused wheezing. No rales or rhonchi. ABDOMEN: Soft, nontender. Bowel sounds are active. No CVA tenderness. No rigidity or guarding. EXTREMITIES: No cyanosis, clubbing or pedal edema. MUSCULOSKELETAL: Normal joints, no swelling. NEUROLOGIC: The patient is awake and alert. SKIN: Intact; no open lesions. LYMPHATIC: No lymph nodes palpable. LABS: WBC 23.30, hgb 14.8, hct 44.5, plt count 230, d-dimer 3050, ABG pH 7.43, pCO2 23 , pO2 120, sodium 140, potassium 3.9, chloride 108, bicarb 14, BUN 43, creatinine 1.53, glucose 354, Lactic acid 59.6. CK-MB 10.5, BNP 357 ASSESSMENT: 1. Rapid atrial fibrillation 2. COPD, exacerbation secondary to the multifactorial pneumonia 3. Status post fall 4. Acute gastroenteritis 5. Dehydration 6. Acute on chronic renal failure 7. Elevated CK-MB 8. History of chronic pain syndrome 9. Hypertension 10.Dyslipidemia PLAN: 1. Admit the patient to the SCU 2. IV fluids 3. Rocephin one dose then we will change it to the Azactam 4. Breathing treatment 5. Digoxin 6. Cardizem drip TIME SPENT: IN ICU TIME MORE THAN 70 minutes MTDD
[2017-06-03] MEDS: CATAPRES PO SCH ×2 (09:00→21:08)
[2017-06-03] MEDS: ELIQUIS PO SCH ×2 (09:00→21:08)
[2017-06-03] MEDS: SOLU-MEDROL 125 MG IVP SCH (09:01)
[2017-06-03] MEDS: DUONEB NEB SCH ×4 (09:24→20:20)
--- NOTE | 2017-06-03 10:26 | PN ---
DATE OF SERVICE: 06/01/17 SUBJECTIVE: The patient was admitted with change in mental status, rapid atrial fibrillation new onset, pneumonia multifocal and dehydration, mild rhabdomyolysis. With IV fluid, breathing treatments and antibiotics and the patient is feeling better. More awake and alert today. BUN and creatinine is stable. WBC has gone down from 23,000 to 12,000. Atrial fibrillation is under with 80 heart rate. Off of the drip with Cardizem PO. REVIEW OF SYSTEMS: CONSTITUTIONAL: No fever, no chills. HEENT: Normal. ENDOCRINE: No weight gain, no weight loss. CVS: No angina symptoms. No CHF symptoms. No palpitations. No atypical chest pain for CAD. No shortness of breath. No PND, no orthopnea. RESPIRATORY: No cough, no hemoptysis. GI: No nausea, no vomiting. No abdominal pain. : No hematuria. No polyuria. MUSCULOSKELETAL:. No joint swelling. PSYCHIATRIC: Not anxious. No depression. No suicidal thoughts. No homicidal thoughts. SKIN: Intact. No rash. PHYSICAL EXAMINATION: VITALS: Blood pressure 150/70, respiratory rate 20, heart rate 82, temperature 97.0 HEENT: Normocephalic, atraumatic. Mucosa dry. Pallor positive. No icterus. NECK: Supple. No JVD, no carotid bruit. No lymphadenopathy. LUNGS: Bilateral entry is decreased and basilar crackles. No rales or rhonchi. HEART: Irregular heart rate. S1, S2 normal. No S3. No murmur, gallop or regurgitation. ABDOMEN: Soft, nontender. Bowel sounds active. No rigidity. No rebound or guarding. No CVA tenderness. EXTREMITIES: No clubbing, cyanosis or pedal edema. MUSCULOSKELETAL: No joint swelling. NEUROLOGIC: Awake, alert, oriented times three. No focal deficit. LYMPHATIC: No lymph nodes palpable. SKIN: Intact. LABS: WBC 12.74, hgb 12.7, hct 38.4, plt count 156, Sodium 144, potassium 3.3, chloride 112, bicarb 23, BUN 44, creatinine 1.31, glucose 220 ASSESSMENT: 1. Status post rapid atrial fibrillation which is new onset 2. Multifocal pneumonia, community acquired 3. Status post fall with mild Rhabdomyolysis 4. Acute on chronic renal failure 5. Dehydration 6. Chronic pain syndrome 7. Depression 8. Hypertension PLAN: 1. Continue Eliquis twice a day 2. Azactam Q 8 hours 3. Flagyl 4. Breathing treatments 5. Solu-Medrol 80mg Q 12 hours 6. IV fluids. TIME SPENT: More than 35 minutes MTDD
--- NOTE | 2017-06-03 11:35 | PN ---
DATE OF SERVICE: 06/02/17 SUBJECTIVE: The patient was admitted with the multifocal pneumonia and rapid atrial fibrillation. The patient is off of the drip with the Cardizem. The patient is more awake and alert. Still coughing and congested. REVIEW OF SYSTEMS: CONSTITUTIONAL: No fever, no chills. HEENT: Normal. ENDOCRINE: No weight gain, no weight loss. CVS: No angina symptoms. No CHF symptoms. No palpitations. No atypical chest pain for CAD. No shortness of breath. No PND, no orthopnea. RESPIRATORY: Cough, no hemoptysis. GI: No nausea, no vomiting. No abdominal pain. : No hematuria. No polyuria. MUSCULOSKELETAL:. No joint swelling. PSYCHIATRIC: Not anxious. No depression. No suicidal thoughts. No homicidal thoughts. SKIN: Intact. No rash. PHYSICAL EXAMINATION: V/S: blood pressure 148/86, respiratory rate 22, heart rate 84, temperature 97.7 with saturation 94%. GENERAL: Sick looking man lying in the bed. HEENT: Normocephalic, atraumatic. Mucosa dry. NECK: Supple. No JVD, no carotid bruit. No lymphadenopathy. LUNGS: Decreased with basilar crackles. Clear to auscultation. No rales or rhonchi. HEART: S1, S2 normal. No S3. No murmur, gallop or regurgitation. ABDOMEN: Soft, nontender. Bowel sounds active. No rigidity. No rebound or guarding. No CVA tenderness. EXTREMITIES: No clubbing, cyanosis or pedal edema. MUSCULOSKELETAL: No joint swelling. NEUROLOGIC: Awake, alert, oriented times three. No focal deficit. LYMPHATIC: No lymph nodes palpable. SKIN: Intact. LABS: WBC 12.49, hgb 11.9, hct 36.4, plt count 168, sodium 139, potassium 4.3, chloride 110, bicarb 21, BUN 44, creatinine 1.1, glucose 262 ASSESSMENT: 1. Multifactorial pneumonia 2. Status post atrial fibrillation with rapid ventricular rate, new onset on Eliquis. CHADS2 VASC score 3 3. Diabetes, uncontrolled 4. Hypertension 5. Dyslipidemia 6. Chronic pain syndrome PLAN: 1. Continue the MS Contin 2. Continue the Azactam and Flagyl, Flagyl been given as a prophylaxis as we are ruling out the C-Diff on patient 3. DUO NEBS 4. IV fluids at 40ml per hour. TIME SPENT: More than 35 minutes MTDD
[2017-06-03] MEDS ORDERED: LASIX IVP STA (12:42)
--- NOTE | 2017-06-03 15:48 | CT ---
EXAM: CT chest without contrast HISTORY: Coughing, wheezing, shortness of breath despite treatment COMPARISON: 05/29/2017 TECHNIQUE: CT chest performed without intravenous contrast. Coronal and sagittal reformatted images obtained. FINDINGS: Thoracic inlet unremarkable. Heart normal in size. Coronary calcifications. Trace peric ardial effusion. Aorta normal in caliber. Mild atherosclerosis. Small to moderate hiatal hernia wi th new trace adjacent free fluid. Small liver cyst. Liver diffusely decreased attenuation. Patient status post cholecystectomy. Mild body wall edema. No acute abnormalities of the bones. Degenerat nitin change in the spine. Central airway patent. Stable mediastinal lymph nodes measuring up to 1.0 cm short axis. New trace right and small pleural effusions. Bilateral lower airway thickening. Red emonstration of multifocal nodular consolidation with nodular and ground-glass infiltrates throughout the left lung. Numerous and extensive interval cavitations throughout the majority of the consolidat ions and infiltrates. No pneumothorax. Minimal centrilobular emphysema. IMPRESSION: 1. Redemonstration of multifocal nodular consolidation with nodular and ground-glass infiltrates thr oughout the left lung. Numerous and extensive interval cavitations throughout the majority of the con solidations and infiltrates. Findings suggestive of atypical infectious process or cavitary pneumonia . Further evaluation/follow-up is needed. 2. New trace right and small left pleural effusions. 3. Bilateral lower airway thickening, likely a small airways infection/inflammation. 4. Stable borderline enlarged mediastinal lymph nodes, nonspecific. 5. Trace pericardial effusion. 6. Minimal emphysema. 7. Small to moderate hiatal hernia with new trace adjacent free fluid, nonspecific. 8. Hepatic steatosis. 9. Coronary calcifications. Atherosclerosis. 10. Mild body wall edema.
[2017-06-04] MEDS: MORPHINE SULFATE TAB PO SCH ×3 (01:00→18:02)
[2017-06-04] MEDS: AZACTAM 2 GM in SODIUM CHLORIDE 100 ML IV SCH ×2 (03:11→05:57)
[2017-06-04] MEDS: SOLU-MEDROL 125 MG IVP SCH (03:12)
[2017-06-04] MEDS: DUONEB NEB SCH ×4 (05:05→20:00)
[2017-06-04] MEDS: FLAGYL PO SCH ×3 (05:40→20:42)
[2017-06-04] MEDS: CARDIZEM PO SCH ×3 (05:40→20:42)
[2017-06-04] MEDS: HUMULIN R SUBCUT PRN ×3 (06:14→21:01)
[2017-06-04] MEDS: CATAPRES PO SCH ×2 (09:06→20:42)
[2017-06-04] MEDS: ELIQUIS PO SCH ×2 (09:06→20:44)
[2017-06-04] MEDS: PREDNISONE PO SCH ×2 (09:06→18:02)
[2017-06-04] MEDS: KEFLEX PO SCH ×2 (09:06→20:42)
[2017-06-04] MEDS ORDERED: BENADRYL PO STA (12:52)
[2017-06-04] MEDS: DIFLUCAN PO SCH (13:17)
--- NOTE | 2017-06-04 14:44 | PN ---
DATE OF SERVICE: 06/03/17 SUBJECTIVE: The patient is coughing some, no shortness of breath, no fever and more awake and alert. REVIEW OF SYSTEMS: CONSTITUTIONAL: No fever, no chills. HEENT: Normal. ENDOCRINE: No weight gain, no weight loss. CVS: No angina symptoms. No CHF symptoms. No palpitations. No atypical chest pain for CAD. No shortness of breath. No PND, no orthopnea. RESPIRATORY: No cough, no hemoptysis. GI: No nausea, no vomiting. No abdominal pain. : No hematuria. No polyuria. MUSCULOSKELETAL:. No joint swelling. PSYCHIATRIC: Not anxious. No depression. No suicidal thoughts. No homicidal thoughts. SKIN: Intact. No rash. PHYSICAL EXAMINATION: V/S: Blood pressure 186/100, respiratory rate 18, heart rate 92, temperature 97.6 with saturation 96%. HEENT: Normocephalic, atraumatic. Mucosa dry. Pallor positive. NECK: Supple. No JVD, no carotid bruit. No lymphadenopathy. LUNGS: Decreased with basilar crackles. No rales or rhonchi. HEART: S1, S2 normal. No S3. No murmur, gallop or regurgitation. ABDOMEN: Soft, nontender. Bowel sounds active. No rigidity. No rebound or guarding. No CVA tenderness. EXTREMITIES: No clubbing, cyanosis or pedal edema. MUSCULOSKELETAL: No joint swelling. NEUROLOGIC: Awake, alert, oriented times three. No focal deficit. LYMPHATIC: No lymph nodes palpable. SKIN: Intact. LABS: WBC 25.65, hgb 12.9, hct 38.0, plt count 185, sodium 138, potassium 3.8, chloride 109, bicarb 21, BUN 36, creatinine 0.80, glucose 256 ASSESSMENT: 1. New onset rapid atrial fibrillation, status post 2. Multifocal pneumonia 3. Acute on chronic renal failure 4. Status post fall with mild rhabdomyolysis 5. Severe metabolic acidosis which got resolved 6. Coronary artery disease 7. Hypertension 8. Dyslipidemia PLAN: 1. Will get CT chest as previous CAT scan did say there was some kind of questionable mass below the infiltration 2. Continue the Azactam 3. IV fluids at 40ml per hour 4. Solu-Medrol 80mg Q 12 hours 5. Flagyl 6. Cardizem 60mg Q 8 hours 7. Eliquis 500mg twice a day 8. Continue MS Contin TIME SPENT: More than 35 minutes MTDD
[2017-06-04] MEDS ORDERED: LOVENOX SUBCUT SCH (15:00)
[2017-06-04] MEDS: CARDIZEM INJ 125 MG in SODIUM CHLORIDE 100 ML IV SCH (16:26)
--- NOTE | 2017-06-04 18:07 | CT ---
EXAM: CTA chest with contrast using PE protocol. TECHNIQUE: Helical CTA of the chest was performed with contrast in axial plane with coronal and sagit berna reconstructions and separate work station 3-D renderings. COMPARISON: CT chest from 1 day earlier HISTORY: Chest pain. Short of breath FINDINGS: There are no filling defects in the pulmonary arteries to the level of the subsegmental branches. The re is no sign of ventricular strain. There is significant worsening of extensive cavitary consolidati ons seen involving most of the left upper lung field compared to earlier. There is a moderate left-s ided effusion which is stable. There are some nonpathologic mediastinal lymph nodes probably reactiv e. There is a small pericardial effusion. There is no pneumothorax. The aorta demonstrates moderate ath erosclerotic calcifications with no dissection or aneurysm. There are coronary calcifications. There is a hiatal hernia. The upper abdomen is benign with no acute abnormality. There is fatty infiltrat ion of the liver. There are no acute osseous abnormalities. IMPRESSION: 1. No evidence for pulmonary embolus. 2. Significant worsening of extensive predominately left upper lobe cavitary infiltrates. 3. Left pleural effusion. 4. Other miscellaneous findings as above.
[2017-06-05] MEDS: DUONEB NEB SCH ×4 (05:22→20:45)
[2017-06-05] MEDS: CARDIZEM PO SCH ×3 (05:34→21:07)
[2017-06-05] MEDS: FLAGYL PO SCH ×3 (05:34→21:07)
[2017-06-05] MEDS: MORPHINE SULFATE TAB PO SCH ×3 (05:34→21:14)
[2017-06-05] MEDS: PRILOSEC PO SCH (05:34)
[2017-06-05] MEDS: HUMULIN R SUBCUT PRN ×3 (05:42→18:52)
[2017-06-05] MEDS: DIFLUCAN PO SCH (10:39)
[2017-06-05] MEDS: KEFLEX PO SCH ×2 (10:39→21:06)
[2017-06-05] MEDS: CATAPRES PO SCH ×2 (10:40→21:07)
[2017-06-05] MEDS: TESSALON PERLES PO SCH ×3 (10:40→21:07)
[2017-06-05] MEDS: ELIQUIS PO SCH ×2 (10:41→21:07)
[2017-06-05] MEDS: PREDNISONE PO SCH ×2 (10:41→18:52)
[2017-06-05] MEDS ORDERED: VANCOMYCIN 1,000 MG in SODIUM CHLORIDE 200 ML IV SCH (17:30)
[2017-06-05] MEDS ORDERED: VANCOMYCIN ONE (18:25)
[2017-06-05] MEDS ORDERED: ROCEPHIN 1 GM in SODIUM CHLORIDE 50 ML IV SCH (21:00)
[2017-06-05] MEDS ORDERED: ROCEPHIN ONE (21:04)
[2017-06-05] MEDS: SODIUM CHLORIDE 1,000 ML IV SCH (21:25)
[2017-06-06] MEDS: DUONEB NEB SCH ×4 (04:38→19:21)
[2017-06-06] MEDS: FLAGYL PO SCH (08:05)
[2017-06-06] MEDS: PRILOSEC PO SCH (08:06)
[2017-06-06] MEDS: MORPHINE SULFATE TAB PO SCH ×3 (08:07→20:39)
[2017-06-06] MEDS: CARDIZEM PO SCH ×3 (08:07→20:39)
[2017-06-06] MEDS: HUMULIN R SUBCUT PRN ×3 (08:08→18:08)
[2017-06-06] MEDS ORDERED: LASIX IVP STA (08:51)
[2017-06-06] MEDS: VANCOMYCIN 1 GM in SODIUM CHLORIDE 250 ML IV SCH ×2 (10:05→20:38)
[2017-06-06] MEDS: CATAPRES PO SCH ×2 (10:06→20:38)
[2017-06-06] MEDS: PREDNISONE PO SCH ×2 (10:06→18:09)
[2017-06-06] MEDS: TESSALON PERLES PO SCH ×3 (10:06→20:39)
[2017-06-06] MEDS: ELIQUIS PO SCH ×2 (10:07→20:39)
[2017-06-06] MEDS: DIFLUCAN PO SCH (10:07)
[2017-06-07] MEDS: PRILOSEC PO SCH (06:27)
[2017-06-07] MEDS: MORPHINE SULFATE TAB PO SCH ×3 (06:28→21:17)
[2017-06-07] MEDS: CARDIZEM PO SCH ×3 (06:28→21:17)
[2017-06-07] MEDS: HUMULIN R SUBCUT PRN ×4 (06:42→21:18)
[2017-06-07] MEDS: VANCOMYCIN 1 GM in SODIUM CHLORIDE 250 ML IV SCH ×2 (10:10→21:18)
[2017-06-07] MEDS: DIFLUCAN PO SCH (10:10)
[2017-06-07] MEDS: TESSALON PERLES PO SCH ×3 (10:12→21:18)
[2017-06-07] MEDS: PREDNISONE PO SCH ×2 (10:12→16:44)
[2017-06-07] MEDS: ELIQUIS PO SCH ×2 (10:12→21:17)
[2017-06-07] MEDS: CATAPRES PO SCH ×2 (10:12→21:18)
[2017-06-07] MEDS: DUONEB NEB SCH ×4 (10:20→20:00)
[2017-06-08] MEDS: DUONEB NEB SCH ×3 (05:18→14:15)
[2017-06-08] MEDS: HUMULIN R SUBCUT PRN ×2 (05:53→12:37)
[2017-06-08] MEDS: MORPHINE SULFATE TAB PO SCH ×2 (05:54→12:38)
[2017-06-08] MEDS: PRILOSEC PO SCH (05:54)
[2017-06-08] MEDS: CARDIZEM PO SCH ×2 (05:57→12:38)
[2017-06-08] MEDS: DIFLUCAN PO SCH (09:34)
[2017-06-08] MEDS: CATAPRES PO SCH (09:34)
[2017-06-08] MEDS: ELIQUIS PO SCH (09:34)
[2017-06-08] MEDS: TESSALON PERLES PO SCH ×2 (09:35→15:21)
[2017-06-08] MEDS: VANCOMYCIN 1 GM in SODIUM CHLORIDE 250 ML IV SCH (09:35)
[2017-06-08] MEDS: PREDNISONE PO SCH ×2 (09:35→17:30)
--- NOTE | 2017-06-08 12:01 | DI ---
EXAM: Frontal chest HISTORY: Congestion, blood in sputum. FINDINGS: Compared to 06/02/2017. There has been development of moderate infiltrate in the left krystian g suggesting pneumonia. Right lung is clear. Stable prominent heart size. No visible pleural fluid . IMPRESSION: Moderate left lung density suggesting pneumonia.
[2017-06-08 14:32] VITALS: BP 133/67; TEMP 98.7
--- NOTE | 2017-06-10 08:45 | PN ---
DATE OF SERVICE: 06/07/17 SUBJECTIVE: The patient is coughing up clear to blood tinged sputum. Shortness of breath has improved. Getting out and was able to walk. REVIEW OF SYSTEMS: CONSTITUTIONAL: No fever, no chills. HEENT: Normal. ENDOCRINE: No weight gain, no weight loss. CVS: No angina symptoms. No CHF symptoms. No palpitations. No atypical chest pain for CAD. No shortness of breath. No PND, no orthopnea. RESPIRATORY: No cough, no hemoptysis. GI: No nausea, no vomiting. No abdominal pain. : No hematuria. No polyuria. MUSCULOSKELETAL: No joint swelling. PSYCHIATRIC: Not anxious. No depression. No suicidal thoughts. No homicidal thoughts. SKIN: Intact. No rash. PHYSICAL EXAMINATION: V/S: Blood pressure 153/66, respiratory rate 18, heart rate 68, temperature 97.5 and saturation 90% on the room air. HEENT: Normocephalic, atraumatic. Mucosa dry. Pallor positive. No icterus. NECK: Supple. No JVD, no carotid bruit. No lymphadenopathy. LUNGS: Decreased and clear to auscultation. No rales or rhonchi. HEART: S1, S2 normal. No S3. No murmur, gallop or regurgitation. ABDOMEN: Soft, nontender. Bowel sounds active. No rigidity. No rebound or guarding. No CVA tenderness. EXTREMITIES: No clubbing, cyanosis or pedal edema. MUSCULOSKELETAL: No joint swelling. NEUROLOGIC: Awake, alert, oriented times three. No focal deficit. LYMPHATIC: No lymph nodes palpable. SKIN: Intact. LABS: WBC 27.59, hgb 10.0, hct 32.0, plt count 205, sodium 132, potassium 3.6, chloride 99, bicarb 26, BUN 28, creatinine 0.79. ASSESSMENT: 1. COPD exacerbation secondary to the MSSA 2. Status post rhabdomyolysis 3. Status post new onset atrial fibrillation 4. Hypertension 5. Chronic pain syndrome PLAN: 1. Continue the Vancomycin 1 gram daily 2. IV fluids 3. Eliquis 4. 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 5. The patient is forcing on going home. Explained that if he can get up and walk and has less shortness of breath, will get x-ray in the morning and then most likely be discharged. TIME SPENT: More than 35 minutes MTDD
--- NOTE | 2017-06-10 10:03 | DS ---
DATE OF SERVICE: 06/08/17 FINAL DIAGNOSIS: 1. Status post fall with mild rhabdomyolysis 2. New onset atrial fibrillation 3. Multifocal pneumonia MSSA positive 4. Hemoptysis after starting the Eliquis which is stable and controlled. 5. Acute on chronic kidney disease which is improved. 6. Chronic pain syndrome 7. Left Carotid endarterectomy 8. History of CVA in the past 9. Seizure disorder but none lately 10.Cholecystectomy DISCHARGE INSTRUCTIONS: Discharge the patient home. Continue rest of the home medications. skilled nursing anticoagulation and risk of GI bleed and intracranial bleed been discussed. The patient has been getting Eliquis 5mg twice a day for atrial fibrillation and Cardizem 60mg Q 8 hours. Please have followup with PMD within 4-5 days. MEDICATIONS AT DISCHARGE: Symbicort Metformin Morphine Omeprazole Lyrica Temazepam NEW PRESCRIPTIONS: Cipro 250mg twice a day Eliquis 5mg PO twice a day Diltazem 60mg Q 8 hours DIET INSTRUCTIONS: Cardiac and Healthy ACTIVITY: Get plenty of rest at home. Gradually increase activity level according to toleration. SMOKING: Former smoker DISEASE SPECIFIC EDUCATION: Pneumonia and pneumonia vaccination Antibiotic use been discussed and verbalized understanding. HOSPITAL COURSE: Dheeraj Zee who is a 72 year old male with a history of of COPD and recurrent pneumonia was found by the family member on the floor and unresponsive. By the time the patient was brought to the hospital the patient CK-MB was 10.5 and Lactic acid 59 was acute renal failure with BUN 43, creatinine 1.53, WBC 23,000 and D-dimer was 3,000. ABG showed the pH 7.43, pCO2 23, pO2 120. Toxicology screen acetone was negative and the patient was in acute atrial fibrillation and multiple focal pneumonia. At that time the patient was admitted to the hospital and started on the Cardizem drip, IV antibiotics, breathing treatments and fluids. Slowly the patient's atrial fibrillation was controlled. We did give a dose of the Digitalis and antibiotic was initially was Rocephin and changed it to the Azactam. The patient within two days was more awake and alert. With the atrial fibrillation CHADS 2 VASC score for the patient was started on the Eliquis. buttermaker anticoagulation risk and GI bleed been discussed and verbalized understanding. The patient kept having multifocal pneumonia MH with CT chest. Length of stay was extensive because of that. Gradually BUN and creatinine became normal. Hgb was 14.8 when he came and at the time of discharge hgb is 10.8 which has been stable. Hemoptysis has been controlled with Vancomycin treatment for the Methicillin sensitive Staph aureus in the sputum. As the patient has been up and able walking and insisting on going home even though the repeat chest x-ray today showed still the pneumonia and resolving pneumonia. At that time the patient being discharged home. Clearly explained incase the patient gets short of breath and coughing and needs to come back. TIME SPENT: MORE THAN 65 MINUTES MTDD
--- NOTE | 2017-06-10 13:04 | PN ---
DATE OF SERVICE: 06/06/17 SUBJECTIVE: The patient's sputum did grow MSSA antibiotic has changed to only Vancomycin. Still having some breathing difficulty. Coughing up blood has decreased. REVIEW OF SYSTEMS: CONSTITUTIONAL: No fever, no chills. HEENT: Normal. ENDOCRINE: No weight gain, no weight loss. CVS: No angina symptoms. No CHF symptoms. No palpitations. No atypical chest pain for CAD. No shortness of breath. No PND, no orthopnea. RESPIRATORY: No cough, no hemoptysis. GI: No nausea, no vomiting. No abdominal pain. : No hematuria. No polyuria. MUSCULOSKELETAL: No joint swelling. PSYCHIATRIC: Not anxious. No depression. No suicidal thoughts. No homicidal thoughts. SKIN: Intact. No rash. PHYSICAL EXAMINATION: V/S: Blood pressure 141/69, respiratory rate 18, heart rate 97.3 and saturation is 92%. HEENT: Normocephalic, atraumatic. Mucosa dry. Pallor positive. No icterus. NECK: Supple. No JVD, no carotid bruit. No lymphadenopathy. LUNGS: Bilateral entry is decreased and basilar crackles. No rales or rhonchi. HEART: S1, S2 normal. No S3. No murmur, gallop or regurgitation. ABDOMEN: Soft, nontender. Bowel sounds active. No rigidity. No rebound or guarding. No CVA tenderness. EXTREMITIES: No clubbing, cyanosis or pedal edema. MUSCULOSKELETAL: No joint swelling. NEUROLOGIC: Awake, alert, oriented times three. No focal deficit. LYMPHATIC: No lymph nodes palpable. SKIN: Intact. Some puffiness all over the body. LABS: WBC 27.59, hgb 10.8, hct 32.0, plt count 205, sodium 137, potassium 3.8, chloride 109, bicarb 21, BUN 36, creatinine 0.80 and glucose 256. ASSESSMENT: 1. Pneumonia MSSA positive 2. Status post mild rhabdomyolysis which is improved 3. Acute on chronic renal failure, stable 4. Hemoptysis, stable hgb 5. COPD 6. Chronic pain syndrome PLAN: 1. IV Lasix 20mg 2. Vancomycin 1 gram daily 3. DUO NEBS 4. Will check the Vancomycin trough levels TIME SPENT: More than 35 minutes MTDD
--- NOTE | 2017-06-10 15:10 | PN ---
DATE OF SERVICE: 06/05/17 SUBJECTIVE: The patient was admitted with atrial fibrillation and pneumonia. The patient is on the Eliquis twice a day getting the hemoptysis. Hgb is steady. Refusing to have IV lines and antibiotics as the patient's is not convincing him he is upset and he wants to go home but I did explain to him clearly that he still vomiting blood and the pneumonia has been worsening on the CT scan of the chest. Carotid infiltrates, left pleural effusion and other miscellaneous findings were there. At that time the patient verbalized understanding and he did verbalize that he wants to get IV antibiotics and he wants to get better. REVIEW OF SYSTEMS: CONSTITUTIONAL: No fever, no chills. HEENT: Normal. ENDOCRINE: No weight gain, no weight loss. CVS: No angina symptoms. No CHF symptoms. No palpitations. No atypical chest pain for CAD. No shortness of breath. No PND, no orthopnea. RESPIRATORY: No cough, no hemoptysis. GI: No nausea, no vomiting. No abdominal pain. : No hematuria. No polyuria. MUSCULOSKELETAL: No joint swelling. PSYCHIATRIC: Not anxious. No depression. No suicidal thoughts. No homicidal thoughts. SKIN: Intact. No rash. PHYSICAL EXAMINATION: V/S: Blood pressure 171/76, respiratory rate 20, heart rate 78, temperature 98.9 with saturation 94 on the room air. HEENT: Normocephalic, atraumatic. Mucosa dry. Pallor positive. NECK: Supple. No JVD, no carotid bruit. No lymphadenopathy. LUNGS: Bilateral entry is decreased and basilar crackles. No rales or rhonchi. HEART: S1, S2 normal. No S3. No murmur, gallop or regurgitation. ABDOMEN: Soft, nontender. Bowel sounds active. No rigidity. No rebound or guarding. No CVA tenderness. EXTREMITIES: No clubbing, cyanosis or pedal edema. MUSCULOSKELETAL: No joint swelling. NEUROLOGIC: Awake, alert, oriented times three. No focal deficit. LYMPHATIC: No lymph nodes palpable. SKIN: Intact. LABS: WBC 25.65, hgb 12.9, hct 38.0, plt count 185, sodium 137, potassium 3.8, chloiride 109, bicarb 21, BUN 36, creatinine 0.80, glucose 256. ASSESSMENT: 1. Atrial fibrillation 2. Multifocal pneumonia 3. Hemoptysis on blood thinner 4. Elevated D-Dimer 5. COPD 6. Chronic pain syndrome PLAN: 1. Will start the IV line 2. Start IV Azactam and Flagyl 3. Breathing treatments 4. Continue Apixaban 5. Explained again about the importance of the IV antibiotics at this stage as chest x-ray does show the CAT scan of the chest does show the worsening of the pneumonia with the multifocal areas. TIME SPENT: More than 35 minutes MTDD
--- NOTE | 2017-06-10 15:17 | PN ---
DATE OF SERVICE: 06/04/17 SUBJECTIVE: The patient is coughing up some blood and not wanting to keep the IV line and he is taking it out and he wants to go home. X-ray does still show pneumonia, bilateral and worsening. REVIEW OF SYSTEMS: CONSTITUTIONAL: No fever, no chills. HEENT: Normal. ENDOCRINE: No weight gain, no weight loss. CVS: No angina symptoms. No CHF symptoms. No palpitations. No atypical chest pain for CAD. No shortness of breath. No PND, no orthopnea. RESPIRATORY: No cough, no hemoptysis. GI: No nausea, no vomiting. No abdominal pain. : No hematuria. No polyuria. MUSCULOSKELETAL: No joint swelling. PSYCHIATRIC: Not anxious. No depression. No suicidal thoughts. No homicidal thoughts. SKIN: Intact. No rash. PHYSICAL EXAMINATION: V/S: Blood pressure 138/76, respiratory rate 16, heart rate 68, temperature 99.5 , saturation 93 on the room air. HEENT: Normocephalic, atraumatic. Mucosa dry. Pallor positive. No icterus. NECK: Supple. No JVD, no carotid bruit. No lymphadenopathy. LUNGS: Decreased and basilar crackles. No rales or rhonchi. HEART: S1, S2 normal. No S3. No murmur, gallop or regurgitation. ABDOMEN: Soft, nontender. Bowel sounds active. No rigidity. No rebound or guarding. No CVA tenderness. EXTREMITIES: No clubbing, cyanosis or pedal edema. MUSCULOSKELETAL: No joint swelling. NEUROLOGIC: Awake, alert No focal deficit. LYMPHATIC: No lymph nodes palpable. SKIN: Intact. LABS: WBC 25.65, hgb 12.9, hct 39.0, plt count 185, sodium 137, potassium 3.8, chloride 109, bicarb 21, BUN 36, creatinine 0.80, glucose 256. ASSESSMENT: 1. Status post fall with mild rhabdomyolysis 2. Multifocal pneumonia 3. New onset atrial fibrillation 4. Hemoptysis probably from the Eliquis 5. Chronic kidney disease 6. Chronic pain syndrome PLAN: 1. Start the Keflex 2. CT chest PE protocol 3. Lovenox one dose 4. Sputum culture 5. Continue breathing treatments. TIME SPENT: More than 35 minutes MTDD
== END 2017-06-08 18:20 | disposition home or self-care (01) | DRG 177 ==
LOC: ED 08:32 → SCU 11:22 → MEDSURG B 06-02 15:20
PROVIDERS: ADMIT Emergency Medicine; ATTEND Emergency Medicine
DX: J15.211 Pneumonia due to Methicillin susceptible Staphylococcus aureus (principal); A41.9 Sepsis, unspecified organism; R04.2 Hemoptysis; D68.32 Hemorrhagic disorder due to extrinsic circulating anticoagulants; E87.2 Acidosis; E87.3 Alkalosis; N17.9 Acute kidney failure, unspecified; I48.0 Paroxysmal atrial fibrillation; E11.65 Type 2 diabetes mellitus with hyperglycemia; R00.0 Tachycardia, unspecified; I10 Essential (primary) hypertension; J44.9 Chronic obstructive pulmonary disease, unspecified; T79.6XXA Traumatic ischemia of muscle, initial encounter; N18.9 Chronic kidney disease, unspecified; E78.5 Hyperlipidemia, unspecified; G89.4 Chronic pain syndrome; G40.909 Epilepsy, unspecified, not intractable, without status epilepticus; F32.9 Major depressive disorder, single episode, unspecified; R53.81 Other malaise; R45.1 Restlessness and agitation; R41.82 Altered mental status, unspecified; R53.1 Weakness; T14.90XA Injury, unspecified, initial encounter; T45.515A Adverse effect of anticoagulants, initial encounter; Y92.230 Patient room in hospital as the place of occurrence of the external cause; Z86.73 Personal history of transient ischemic attack (TIA), and cerebral infarction without residual deficits; W19.XXXA Unspecified fall, initial encounter; Z79.84 Long term (current) use of oral hypoglycemic drugs; Z79.899 Other long term (current) drug therapy; Z87.891 Personal history of nicotine dependence; Z98.890 Other specified postprocedural states; Z90.49 Acquired absence of other specified parts of digestive tract
CPT/HCPCS: 36415; 80053; 80162; 80202; 82009; 82550; 82553; 82803; 82962; 83605; 83880; 84145; 84439; 84443; 84484; 85025; 85379; 87040; 87070; 87186; 87493; 93005; 93010; 94640; 96365; 96366; 96368; 96375; 97802; 99284

== ENCOUNTER 2017-09-02 20:14 | Emergency (ER) ==
[2017-09-02 20:31] VITALS: BP 151/72; TEMP 98.4; BMI 26.9
[2017-09-02] MEDS ORDERED: TENIVAC IM ONE (20:34)
--- NOTE | 2017-09-02 21:40 | CT ---
EXAM: CT brain without contrast HISTORY: Fall with head injury TECHNIQUE: CT of the brain without intravenous contrast FINDINGS: There is no acute hemorrhage midline shift or mass effect. No hydrocephalus or abnormal e xtra-axial fluid collection. Generalized involutional atrophy, severe. Chronic microvascular change s of the white matter tracts, severe. Left occipital encephalomalacia. Atherosclerotic vascular rebecca cifications are present. The bony cranium appears normal. The visualized paranasal sinuses are clear . Left frontal scalp swelling and probable laceration. IMPRESSION: 1. Chronic changes as described. No acute intracranial abnormality is seen.
--- NOTE | 2017-09-02 21:41 | CT ---
EXAM: CT cervical spine without contrast. HISTORY: Fall COMPARISON: CT cervical spine 05/29/2017 TECHNIQUE: Serial axial images of the cervical spine were obtained from the skull base through the l jazmin apices without contrast. These were viewed in multiple planes. FINDINGS: Vertebral bodies demonstrate no acute compression fracture or subluxation. There is parti al fusion of C5 and C6. There is narrowing of C6 and C7 disc space with mild osteophyte formation. There are scattered anterior posterior disc osteophyte formation. There is degenerative change at th e articulation of the odontoid process of the anterior aspect of C1. There is moderate scattered fac et arthropathy. There is mild left apical fibrosis with mild emphysema. Soft tissues are unremarkable . IMPRESSION: 1. No acute compression fracture or subluxation. 2. 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 3. Mild left apical fibrosis with scattered emphysema.
--- NOTE | 2017-09-02 21:47 | CT ---
Exam: CT thoracic spine without contrast History: Fall with back pain Technique: [address] thoracic spine with multiplanar reformations FINDINGS: Vertebral body height is maintained. No fracture lines. Multilevel thoracic osteophytes anteriorly. No significant central canal stenosis. No immediate paravertebral soft tissue abnormali ties. Exaggeration of the thoracic kyphosis. Impression: 1. No acute abnormalities of the thoracic spine.
--- NOTE | 2017-09-02 21:49 | CT ---
EXAM: CT lumbar spine without contrast. HISTORY: Fall COMPARISON: CT lumbar spine 05/29/2017 TECHNIQUE: Serial axial images of the spine were obtained from the lower thoracic spine through the pelvis without contrast. These were viewed in multiple planes. FINDINGS: Vertebral bodies demonstrate no compression fracture or subluxation. There are few scatte red anterior disc osteophytes and endplate degenerative disease. There is moderate to severe facet a rthropathy. L1-L2: There is mild facet arthropathy and small broad-based disc bulge with no central or neural for aminal narrowing. L2-L3: There is mild facet arthropathy and small broad-based disc bulge with no central or neural for aminal narrowing. L3-L4: Broad-based disc bulge and facet arthropathy. L4-L5: Broad-based disc bulge and facet arthropathy with no central or neural foraminal narrowing. L5-S1: Degenerative disease with facet arthropathy with mild bilateral neural foraminal narrowing. Limited views of the soft tissues are unremarkable. IMPRESSION: 1. No acute compression fracture or subluxation. 2. Multilevel degenerative disease of the lumbosacral spine with mild bilateral neural foraminal larissa rowing at L5-S1.
--- NOTE | 2017-09-02 21:53 | CT ---
EXAM: CT pelvis without contrast HISTORY: Fall. COMPARISON: CT abdomen pelvis 05/30/2017 and multiple priors. TECHNIQUE: Serial axial images of the pelvis were obtained without contrast. These were viewed in m ultiple planes. FINDINGS: There is mild facet arthropathy at L5. There is degenerative disease of both hips. There i s no lytic or blastic lesion. There is moderate atherosclerotic disease. The small bowel and colon i n the pelvis demonstrates mild diverticulosis. Urinary bladder is distended. There is a fat-contain ing right inguinal hernia. IMPRESSION: 1. No acute abnormality or fracture of the pelvis. 2. Degenerative disease of the hips bilaterally. 3. Diverticulosis without diverticulitis. 4. Fat containing right inguinal hernia
--- NOTE | 2017-09-02 21:56 | CT ---
Exam: CT of the chest without contrast History: Fall Technique: [address] of the chest without intravascular contrast FINDINGS: The lung windows show no infiltrative opacities. There is no pneumothorax. Trace atelect asis on the left. Left upper and left lower lobe linear scarring. Atherosclerotic calcification of the aorta without aneurysm. No acute chest wall abnormalities are seen. No acute findings of the up per abdomen. Impression: 1. No evidence of significant post traumatic change to the chest. 2. Left-sided parenchymal scarring
--- NOTE | 2017-09-02 22:11 | ED.PDOC ---
General ED Provider: Dr. URMILA BISHOP-ER Chief Complaint: Fall Stated Complaint: he fell out of the car and hit his head Time Seen by Physician: 22:09 Mode of Arrival: Ambulance Information Source: Patient, Family, EMT Exam Limitations: No limitations Primary Care Provider: YANN RODRÍGUEZ Nursing and Triage Documentation Reviewed and Agree: Yes Reviewed sepsis parameters & appropriate labs ordered?: Yes System Inflammatory Response Syndrome: Not Applicable Sepsis Protocol: For patient's 13 years and over: Temp is 96.8 and below OR 101 and greater Pulse >90 BPM Resp >20/minute Acutely Altered Mental Status Are patient's symptoms suggestive of a new infection, such as: -Pneumonia -Skin, Soft Tissue -Endocarditis -UTI -Bone, Joint Infection -Implantable Device -Acute Abdominal Infection -Wound Infection -Meningitis -Blood Stream Catheter Infection -Unknown Trauma/Injury Complaint Exam - Head Injury Complaint/Exam Location of Pain: Reports: Left, Scalp Mechanism of Injury: Reports: Trauma Onset/Duration: approx one hour Symptoms Are: Still present Initial Severity: Mild Current Severity: Mild Character: Reports: Dull Aggravating: Reports: None Associated Signs and Symptoms: Denies: Confusion, Memory loss, Seizure, Epistaxis, Dental malocclusion, Neck pain, Nausea, Vomiting SDH Risk Factors: Present: None Cervical Spine Injury Risk Factors: Present: None Related Surgical History: Reports: None Head Injury Findings: Present: Normal findings Focal Weakness: Present: None Focal Sensory Loss: Present: None Gait: Normal Gag Reflex Present: Yes Finger to Nose: Normal Rhomberg Test Positive: No Babinski Sign: Negative Right, Negative Left Heel to Toe Normal: Yes Review of Systems - Review Of Systems Constitutional: Reports: No symptoms Eyes: Reports: No symptoms Ears, Nose, Mouth, Throat: Reports: No symptoms Respiratory: Reports: No symptoms Cardiac: Reports: No symptoms GI: Reports: No symptoms : Reports: No symptoms Musculoskeletal: Reports: Joint pain Skin: Reports: No symptoms Neurological: Reports: No symptoms Endocrine: Reports: No symptoms Hematologic/Lymphatic: Reports: No symptoms All Other Systems: Reviewed and Negative Past Medical History - Past Medical History Previously Healthy: No Endocrine: Reports: DM 2 Cardiovascular: Reports: Hypertension, Other (Bradycaria ,old record - inoperable left carotid aneurysm) Respiratory: Reports: None Hematological: Reports: None Gastrointestinal: Reports: GERD Genitourinary: Reports: None, Other (old record-acute renal failure) Neuro/Psych: Reports: CVA, Anxiety, Depression, 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 ), Other (old recordneuropathy) Musculoskeletal: Reports: Arthritis, Back Pain, Joint Pain Cancer: Reports: None Other Pertinent Past Medical History: Left carotid aneurysm, Chronic back pain and chronic neck pain - Surgical History General Surgical History: Reports: Cholecystectomy, Back Surgery, Other ( carotid endarterectomy ) - Family History Family History: Reports: Heart (old record-father CT), Diabetes (old record-5 siaters 3 brothers), Cancer (old record-father), Other (old record- brother with aids) - Social History Smoking Status: Former smoker Hx Substance Use: No Alcohol Screening: None - Immunizations Tetanus Shot up to Date: No (unknown) Influenza Vaccine within 12 Months: No Pneumococcal Vaccine up to Date: No Physical Exam - Physical Exam Appearance: Well-appearing, No pain distress, Well-nourished Eyes: MAXWELL, EOMI, Conjunctiva clear ENT: Ears normal, Nose normal, Oropharynx normal Neck: Supple Respiratory: Airway patent, Breath sounds clear, Breath sounds equal, Respirations nonlabored Cardiovascular: RRR, Pulses normal, No rub, No murmur GI/: Soft, Nontender, No masses, Bowel sounds normal, No Organomegaly Musculoskeletal: Limited ROM Skin: Warm, Dry, Normal color Neurological: Sensation intact, Motor intact, Reflexes intact, Cranial nerves intact, Alert, Oriented Psychiatric: Affect appropriate, Mood appropriate Interpretation - Radiology Interpretation Radiology Interpretation By: Radiologist Radiology Results: Negative Exam Interpreted: CT Scan Critical Care Note - Critical Care Note Total Time (mins): 0 Course - Course Orders, Labs, Meds: Orders Category Date Time Status Wound care [ED WOUND CARE] .ONCE EMERGENCY 09/02/17 20:34 Active Tetanus and Diphtheria Tox/Pf [Tenivac] MEDS 09/02/17 20:34 Discontinued 0.5 ml IM .ONCE ONE CT CERVICAL SPINE W/O CONTRAST Stat RADS 09/02/17 20:[address] CHEST W/O CONTRAST Stat RADS 09/02/17 20:[address] HEAD W/O CONTRAST Stat RADS 09/02/17 20:[address] LUMBAR SPINE W/O CONTRAST Stat RADS 09/02/17 20:[address] PELVIS W/O CONTRAST Stat RADS 09/02/17 20:[address] THORACIC SPINE W/O CONTRAST Stat RADS 09/02/17 20:34 Completed SHOULDER, LEFT MIN 2V Stat RADS 09/02/17 20:47 Ordered Medications Discontinued Medications Generic Name Dose Route Start Last Admin Trade Name Tam PRN Reason Stop Dose Admin Tetanus/Diphtheria Toxoids Adsorbed 0.5 ml 09/02/17 20:34 09/02/17 21:15 Tenivac IM 09/02/17 20:35 0.5 ml .ONCE ONE Administration Vital Signs: Temp Pulse Resp BP Pulse Ox 09/02/17 20:15 98.4 F 82 16 151/72 H 100 Departure - Departure Time of Disposition: 22:45 Disposition: HOME SELF-CARE Discharge Problem: Falls Instructions: Diphtheria/Tetanus Vaccine (By injection) Condition: Stable Pt referred to PMD for follow-up: Yes IPMP verified?: No Additional Instructions: keep abrasion clean and dry till healed Allergies/Adverse Reactions: Allergies No Known Allergies Allergy (Verified 05/29/17 09:40) Home Medications: Ambulatory Orders Metformin HCl 1,000 mg PO BID 05/01/15 Omeprazole [Prilosec] 20 mg PO QDAC 05/01/15 Pregabalin [Lyrica] 100 mg PO TID 05/01/15 Temazepam 30 mg PO BEDTIME 05/01/15 Budesonide/Formoterol Fumarate [Symbicort 80-4.5 Mcg Inhaler] 2 puff IH BID #1 inh 01/15/16 Morphine Sulfate [Morphine Sulfate Tab] 15 mg PO Q8H #1 tablet 01/26/16 Apixaban [Eliquis] 5 mg PO BID #60 tablet 06/08/17 Diltiazem HCl [Cardizem] 60 mg PO Q12HR #30 tablet 06/08/17 Disposition Discussed With: Patient, Family
== END 2017-09-02 23:01 | disposition home or self-care (01) ==
LOC: ED 20:14
DX: S09.90XA Unspecified injury of head, initial encounter (principal); W19.XXXA Unspecified fall, initial encounter
CPT/HCPCS: 90471; 90714; 99283

== ENCOUNTER 2017-10-18 15:53 | Inpatient (IN) ==
[2017-10-18] MEDS ORDERED: SODIUM CHLORIDE 1,000 ML IV STA (16:24)
--- NOTE | 2017-10-18 18:02 | ED.PDOC ---
General ED Provider: Dr. HEIDY MA Chief Complaint: Nausea/Vomiting Stated Complaint: cough weakness, nausea, vomiting Time Seen by Physician: 16:00 (no respiratory distress) Mode of Arrival: Ambulance Information Source: Patient, EMT Exam Limitations: No limitations Primary Care Provider: YANN RODRÍGUEZ Nursing and Triage Documentation Reviewed and Agree: Yes Reviewed sepsis parameters & appropriate labs ordered?: Yes (lactic acid /blood culture initated ) System Inflammatory Response Syndrome: Not Applicable Sepsis Protocol: For patient's 13 years and over: Temp is 96.8 and below OR 101 and greater Pulse >90 BPM Resp >20/minute Acutely Altered Mental Status Are patient's symptoms suggestive of a new infection, such as: -Pneumonia -Skin, Soft Tissue -Endocarditis -UTI -Bone, Joint Infection -Implantable Device -Acute Abdominal Infection -Wound Infection -Meningitis -Blood Stream Catheter Infection -Unknown System Inflammatory Response Syndrome: Not Applicable Respiratory Complaint Exam - Respiratory Complaint/Exam Onset/Duration: this is a chronic issue pt is coughing more said his . vomited x1 Symptoms Are: Still present Timing: Intermittent Initial Severity: Mild Current Severity: Mild Location: Nose, Throat, Chest Character: Reports: Non-productive cough Aggravating: Reports: None Alleviating: Reports: Spontaneous resolution Associated Signs and Symptoms: Reports: URI, Nasal congestion, Decreased oral intake. Denies: Rapid breathing, Dyspnea, Fever, Chills, Chest pain, Pleuritic chest pain, Wheezing, Hemoptysis, Dizziness, Calf pain, Calf swelling, Edema, Hoarseness, Sinus discomfort, Vomiting, Sore throat, Weight loss, Increased thirst, Increased appetite, Increased urination History of Healthcare-Acquired Pneumonia: No Related Surgical History: Reports: None Pulmonary Embolism Risk Factors: Bedrest Cardiac Risk Factors: Reports: Diabetes, Hypertension Pseudomonas Risk Factors: Reports: None Tuberculosis Risk Factors: Reports: Diabetes Status Asthmaticus Risk Factors: Reports: None Home Oxygen Use: No Recent Stress Test: No Recent Echo/LV Function: No Current Antibiotic Use: No Current Asthma Medication Use: No Respiratory Distress: None Inadequate Respiratory Effort: No Dysphagia Present: No Stridor Present: No JVD Present: No Retractions: Not Present Diminished Breath Sounds: No Sinus Tenderness: None Grunting Respirations: No Kussmaul Respirations: No Differential Diagnoses: Pneumonia, Bronchitis Quality Indicators For Pneumonia: Antibiotics in 6hr-admit, SpO2 assessed, Empiric Antibiotic Rx, Vital signs, Mental status assessed Non-Traumatic Chest Pain Syncope: EKG Performed Review of Systems - Review Of Systems Constitutional: Reports: Malaise, Weakness Eyes: Reports: No symptoms Ears, Nose, Mouth, Throat: Reports: No symptoms Respiratory: Reports: Cough Cardiac: Reports: No symptoms GI: Reports: Poor appetite, Poor fluid intake, Vomiting : Reports: No symptoms Musculoskeletal: Reports: No symptoms Skin: Reports: No symptoms Neurological: Reports: No symptoms Endocrine: Reports: No symptoms Hematologic/Lymphatic: Reports: No symptoms All Other Systems: Reviewed and Negative Past Medical History - Past Medical History Previously Healthy: No Endocrine: Reports: DM 2 Cardiovascular: Reports: Hypertension, Other (Bradycaria ,old record - inoperable left carotid aneurysm) Respiratory: Reports: None Hematological: Reports: None Gastrointestinal: Reports: GERD Genitourinary: Reports: None, Other (old record-acute renal failure) Neuro/Psych: Reports: CVA, Anxiety, Depression, 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 ), Other (old recordneuropathy) Musculoskeletal: Reports: Arthritis, Back Pain, Joint Pain Cancer: Reports: None Other Pertinent Past Medical History: Left carotid aneurysm, Chronic back pain and chronic neck pain - Surgical History General Surgical History: Reports: Cholecystectomy, Back Surgery, Other ( carotid endarterectomy ) - Family History Family History: Reports: Heart (old record-father [place]), Diabetes (old record-5 siaters 3 brothers), Cancer (old record-father), Other (old record- brother with aids) - Social History Smoking Status: Former smoker Hx Substance Use: No Alcohol Screening: None - Immunizations Influenza Vaccine within 12 Months: No Pneumococcal Vaccine up to Date: No Physical Exam - Physical Exam Appearance: Ill-appearing Ill-appearing: Mild Pain Distress: Mild Eyes: MAXWELL, EOMI, Conjunctiva clear ENT: Dry mucosa Respiratory: Airway patent, Breath sounds clear, Breath sounds equal, Respirations nonlabored Cardiovascular: RRR, Pulses normal, No rub, No murmur GI/: Soft, Nontender, No masses, Bowel sounds normal, No Organomegaly Musculoskeletal: Normal strength, ROM intact, No edema, No calf tenderness Skin: Warm, Dry, Normal color Neurological: Sensation intact, Motor intact, Reflexes intact, Cranial nerves intact, Alert, Oriented Psychiatric: Affect appropriate, Mood appropriate Interpretation - Editor At Large Rate: Tachy Rhythm: Sinus - EKG Interpretation Rate: Tachy Rhythm: Sinus Ectopy: None Copen: NL ST Segment: Normal Physician Notification - Case Discussed Physician Notified: carina Time of Notification: 19:00 Critical Care Note - Critical Care Note Total Time (mins): 0 Course - Course Hematology/Chemistry: 10/22/17 10:50 10/22/17 10:50 Orders, Labs, Meds: Lab Review 10/18/17 10/18/17 10/18/17 16:50 16:50 16:50 WBC 18.97 H RBC 4.78 Hgb 13.0 L Hct 39.6 L MCV 82.8 MCH 27.2 MCHC 32.8 RDW Coeff of Franko 14.2 Plt Count 282 Immature Gran % (Auto) 0.8 Neut % (Auto) 88.5 Lymph % (Auto) 6.0 L Emanuel % (Auto) 4.2 Eos % (Auto) 0.2 Baso % (Auto) 0.3 Immature Gran # (Auto) 0.2 Neut # (Auto) 16.8 H Lymph # (Auto) 1.1 Emanuel # (Auto) 0.8 Eos # (Auto) 0.0 Baso # (Auto) 0.1 Sodium 142 Potassium 3.5 Chloride 106 Carbon Dioxide 18 L Anion Gap 21.5 BUN 9 Creatinine 0.81 Estimated GFR (MDRD) 93.00 BUN/Creatinine Ratio 11.11 Glucose 149 H Lactic Acid Calcium 9.5 Total Bilirubin 0.7 AST 29 ALT 29 Alkaline Phosphatase 212 H Total Creatine Kinase 503 CK-MB (CK-2) 3.6 CK-MB (CK-2) % 0.52463 Troponin I < 0.0100 Total Protein 7.2 Albumin 2.9 L Globulin 4.3 Albumin/Globulin Ratio 0.67 Procalcitonin 0.09 TSH 0.874 Free T4 1.30 H 10/18/17 16:50 WBC RBC Hgb Hct MCV MCH MCHC RDW Coeff of Franko Plt Count Immature Gran % (Auto) Neut % (Auto) Lymph % (Auto) Emanuel % (Auto) Eos % (Auto) Baso % (Auto) Immature Gran # (Auto) Neut # (Auto) Lymph # (Auto) Emanuel # (Auto) Eos # (Auto) Baso # (Auto) Sodium Potassium Chloride Carbon Dioxide Anion Gap BUN Creatinine Estimated GFR (MDRD) BUN/Creatinine Ratio Glucose Lactic Acid 8.3 Calcium Total Bilirubin AST ALT Alkaline Phosphatase Total Creatine Kinase CK-MB (CK-2) CK-MB (CK-2) % Troponin I Total Protein Albumin Globulin Albumin/Globulin Ratio Procalcitonin TSH Free T4 Orders Category Date Time Status EKG-(ED ONLY) Stat CARDIO 10/18/17 16:20 Completed EKG-(IP & OP ONLY) DAILY CARDIO 10/19/17 06:00 Completed EKG-(IP & OP ONLY) DAILY CARDIO 10/20/17 06:00 Completed EKG-(IP & OP ONLY) DAILY CARDIO 10/21/17 06:00 Completed ACTIVITY .Complete BR CARE 10/18/17 18:27 Active BLOOD GLUCOSE MONITORING ACHS CARE 10/18/17 18:27 Active INTAKE & OUTPUT Q8HR CARE 10/18/17 18:27 Active VITAL SIGNS Q4HR CARE 10/18/17 18:27 Active BLOOD CULTURE Stat LAB 10/18/17 16:50 Results CBC W/ AUTO DIFF DAILY@0600 LAB 10/19/17 01:20 Completed CBC W/ AUTO DIFF DAILY@0600 LAB 10/20/17 05:15 Completed CBC W/ AUTO DIFF Stat LAB 10/18/17 16:50 Completed COMPREHENSIVE METABOLIC PANEL DAILY@0600 LAB 10/19/17 01:20 Completed COMPREHENSIVE METABOLIC PANEL DAILY@0600 LAB 10/20/17 05:15 Completed COMPREHENSIVE METABOLIC PANEL Stat LAB 10/18/17 16:50 Completed CREATINE KINASE Q8H LAB 10/19/17 01:20 Completed CREATINE KINASE Q8H LAB 10/19/17 08:30 Completed CREATINE KINASE Stat LAB 10/18/17 16:50 Completed FREE T4 (FREE THYROXINE) Stat LAB 10/18/17 16:50 Completed LACTIC ACID Stat LAB 10/18/17 16:50 Completed PROCALCITONIN Stat LAB 10/18/17 16:50 Completed THYROID STIMULATING HORMONE Stat LAB 10/18/17 16:50 Completed TROPONIN I Q8H LAB 10/19/17 01:20 Completed TROPONIN I Q8H LAB 10/19/17 08:30 Completed TROPONIN I Stat LAB 10/18/17 16:50 Completed 0.9 % Sodium Chloride [Saline Flush] MEDS 10/18/17 16:24 Active 1 syr IVF PRN PRN Apixaban [Eliquis] MEDS 10/18/17 21:00 Active 5 mg PO BID Ceftriaxone Sodium [Rocephin] MEDS 10/18/17 18:24 Discontinued 2 gm .ROUTE .STK-MED ONE Ceftriaxone Sodium [Rocephin] 2 gm MEDS 10/18/17 18:03 Discontinued 0.9 % Sodium Chloride [Sodium Chloride] 100 ml IV ONCE Diltiazem HCl [Cardizem] MEDS 10/18/17 21:00 Discontinued 60 mg PO Q12HR Metformin HCl [Metformin HCl] MEDS 10/18/17 21:00 Discontinued 1,000 mg PO BID Sodium Chloride 0.9% [Sodium Chloride] 1,000 ml MEDS 10/18/17 16:24 Discontinued IV 125 mls/hr Sodium Chloride 0.9% [Sodium Chloride] 1,000 ml MEDS 10/18/17 18:30 Active IV 75 mls/hr Vancomycin HCl [Vancomycin] 1 gm MEDS 10/18/17 18:28 Discontinued 0.9 % Sodium Chloride [Sodium Chloride] [address] CHEST W/O CONTRAST Stat RADS 10/18/17 16:22 Completed Medications Generic Name Dose Route Start Last Admin Trade Name Freq PRN Reason Stop Dose Admin Acetaminophen 650 mg 10/18/17 19:32 Tylenol PO Q4H PRN Mild Pain Albuterol/Ipratropium 1 vial 10/19/17 00:00 10/22/17 17:52 Duoneb NEB Not Given RTQ6H SHAHID Apixaban 5 mg 10/18/17 21:00 10/22/17 09:00 Eliquis PO Not Given BID [facility] Calamine/Phenol 1 applic 10/21/17 09:00 10/22/17 09:04 Calmoseptine Ointment TP Not Given BID SHAHID Clonidine 0.2 mg 10/19/17 21:00 10/22/17 09:00 Catapres PO Not Given BID SHAHID Diltiazem HCl 30 mg 10/19/17 21:00 10/22/17 09:00 Cardizem PO Not Given Q8HR SHAHID Enoxaparin Sodium 30 mg 10/19/17 21:00 10/21/17 21:08 Lovenox SUBCUT 30 mg BEDTIME SHAHID Administration Haloperidol Lactate 0.5 mg 10/22/17 17:02 Haldol IM Q8H PRN Combativeness/agression Sodium Chloride 1,000 mls @ 75 mls/hr 10/18/17 18:30 10/22/17 05:45 Sodium Chloride IV 75 mls/hr .[id number] SHAHID Administration Ceftriaxone Sodium 1 gm/ 50 mls @ 75 mls/hr 10/19/17 09:00 10/22/17 09:00 Sodium Chloride IV Not Given DAILY SHAHID Vancomycin HCl 500 mg/ Sodium 100 mls @ 100 mls/hr 10/21/17 21:00 10/22/17 09 :00 Chloride IV Not Given Q12HR SHAHID Metoprolol Succinate 25 mg 10/20/17 09:00 10/22/17 09:00 Toprol Xl PO Not Given DAILY [facility] Morphine Sulfate 30 mg 10/19/17 21:00 10/22/17 09:00 Morphine Sulfate Tab PO Not Given Q8HR SHAIHD Ondansetron HCl 4 mg 10/19/17 07:48 10/20/17 04:09 Zofran 4 Mg/2 Ml IVP 4 mg Q6H PRN Administration Nausea / Vomiting Sodium Chloride 1 syr 10/18/17 16:24 Saline Flush IVF PRN PRN To flush IV Tobramycin Sulfate 2 drop 10/20/17 09:00 10/22/17 15:00 Tobrex 0.3% OP Not Given TID [facility] Discontinued Medications Generic Name Dose Route Start Last Admin Trade Name Freq PRN Reason Stop Dose Admin Dexamethasone Sodium Phosphate 4 mg 10/21/17 07:49 10/21/17 08:23 Decadron 4 Mg/Ml Sdv IVP 10/21/17 07:50 4 mg ONCE STA Administration Diltiazem HCl 60 mg 10/18/17 21:00 10/19/17 09:11 Cardizem PO 60 mg Q12HR SHAHID Administration Enoxaparin Sodium 30 mg 10/18/17 20:00 10/18/17 23:08 Lovenox SUBCUT 30 mg DAILY SHAHID Administration Haloperidol Lactate 0.5 mg 10/22/17 09:06 10/22/17 09:15 Haldol IM 10/22/17 09:07 0.5 mg ONCE ONE Administration Sodium Chloride 1,000 mls @ 125 mls/hr 10/18/17 16:24 10/18/17 16:20 Sodium Chloride IV 10/19/17 00:23 125 mls/hr .Q8H STA Administration Ceftriaxone Sodium 2 gm/ 100 mls @ 100 mls/hr 10/18/17 18:03 10/18/17 18:27 Sodium Chloride IV 10/18/17 19:02 100 mls/hr ONCE STA Administration Vancomycin HCl 1 gm/ Sodium 250 mls @ 250 mls/hr 10/18/17 18:28 10/19/17 00: 05 Chloride IV 10/18/17 19:27 250 mls/hr ONCE STA Administration Vancomycin HCl 1 gm/ Sodium 250 mls @ 250 mls/hr 10/19/17 09:00 Chloride IV DAILY SHAHID Vancomycin HCl 1 gm/ Sodium 250 mls @ 125 mls/hr 10/19/17 09:00 10/21/17 09: 17 Chloride IV 125 mls/hr Q12HR SHAHID Administration Potassium Chloride 10 meq/ 100 mls @ 100 mls/hr 10/19/17 10:00 10/19/17 14:46 Sterile Water IV 10/19/17 10:59 100 mls/hr ONCE ONE Administration Potassium Chloride 10 meq/ 100 mls @ 100 mls/hr 10/19/17 07:52 10/19/17 09:07 Sterile Water IV 10/19/17 08:51 100 mls/hr ONCE STA Administration Metformin HCl 1,000 mg 10/19/17 08:00 10/19/17 09:12 Glucophage PO 1,000 mg BIDWM SHAHID Administration Morphine Sulfate 15 mg 10/19/17 13:00 Morphine Sulfate Tab PO Q8HR SHAHID Morphine Sulfate 15 mg 10/19/17 10:52 10/19/17 10:53 Morphine Sulfate Tab PO 10/19/17 10:53 15 mg ONCE STA Administration Morphine Sulfate 15 mg 10/19/17 15:00 10/19/17 15:55 Morphine Sulfate Tab PO Not Given Q8HR SHAHID Non-Formulary Medication 1,000 mg 10/18/17 21:00 10/19/17 00:08 Metformin Hcl [Metformin Hcl] PO Not Given BID SHAHID Tobramycin Sulfate 2 drop 10/18/17 19:34 10/19/17 00:34 Tobrex 0.3% OP 10/18/17 19:35 2 drop ONCE STA Administration Vital Signs: Temp Pulse Resp BP Pulse Ox 10/18/17 18:06 148/79 H 96 10/18/17 15:53 99 F 132 H 22 150/93 H 94 L Departure - Departure Time of Disposition: 19:00 Disposition: ADMITTED INPATIENT Discharge Problem: Weakness, Nausea, Vomiting, Dehydration Sepsis Qualifiers: Sepsis type: sepsis due to unspecified organism Qualified Code(s): A41.9 - Sepsis, unspecified organism Condition: Good Pt referred to PMD for follow-up: Yes IPMP verified?: No Allergies/Adverse Reactions: Allergies No Known Allergies Allergy (Verified 10/18/17 16:04) Home Medications: Ambulatory Orders Omeprazole [Prilosec] 20 mg PO QDAC 05/01/15 Pregabalin [Lyrica] 100 mg PO TID 05/01/15 Apixaban [Eliquis] 5 mg PO BID #60 tablet 06/08/17 Acetaminophen [Tylenol] 1 cap PO Q4H PRN 10/19/17 Bisacodyl [Dulcolax] 2 tab PO DAILY PRN 10/19/17 Clonidine HCl 1 tab PO BID 10/19/17 Diltiazem HCl [Cardizem] 1 tab PO Q8H 10/19/17 Magnesium Oxide 1 tab PO BID 10/19/17 Megestrol Acetate Susp [Megace] 20 ml PO EVERY OTHER DAY 10/19/17 Metoprolol Succinate [Toprol Xl] 25 mg PO DAILY 10/19/17 Morphine Sulfate 30 mg PO Q8H 10/19/17 Multivitamin 1 tab PO DAILY 10/19/17 Pregabalin [Lyrica] 100 mg PO TID 10/19/17 Disposition Discussed With: Patient
[2017-10-18] MEDS ORDERED: ROCEPHIN 2 GM in SODIUM CHLORIDE 100 ML IV STA (18:03)
--- NOTE | 2017-10-18 18:15 | CT ---
EXAM: CT scan thorax without contrast HISTORY: Cough COMPARISON: CT scan thorax 09/02/2017 FINDINGS: Contiguous axial images obtained through the thorax without contrast utilizing 5-mm collim ation. Sagittal and coronal reconstructions were imaged and reviewed.. The thoracic inlet is unrema rkable. There are subcentimeter pre vascular pretracheal lymph nodes. The ascending aorta is ectati c measuring 3.4 cm. The heart is normal in size with mild coronary artery calcification. There is n o pericardial effusion.. Stable scarring is seen within the left upper lobe and superior segment of the left lower lobe.. There is minimal dependent atelectasis at the left lung base. There is no alix dence of infiltrate or effusion. There has been prior cholecystectomy. There is a simple cyst upper pole left kidney. IMPRESSION: No evidence of active pulmonary disease. Ectatic ascending aorta. Stable scarring left upper and left lower lobes. Dependent atelectasis left lung base.
[2017-10-18] MEDS ORDERED: ROCEPHIN ONE (18:24)
[2017-10-18] MEDS ORDERED: VANCOMYCIN 1 GM in SODIUM CHLORIDE 250 ML IV STA (18:28)
[2017-10-18] MEDS ORDERED: TYLENOL PO PRN (19:32)
[2017-10-18] MEDS ORDERED: TOBREX 0.3% OP STA (19:34)
[2017-10-18] MEDS ORDERED: LOVENOX SUBCUT SCH (20:00)
[2017-10-18] MEDS ORDERED: NON-FORMULARY MEDICATION (Metformin Hcl [Metformin Hcl] 1,000 MG) PO SCH (21:00)
[2017-10-18 21:02] VITALS: BMI 25.0
[2017-10-18] MEDS ORDERED: TOBREX 0.3% OP ONE (22:47)
[2017-10-18] MEDS ORDERED: CARDIZEM ONE (22:48)
[2017-10-18] MEDS ORDERED: GLUCOPHAGE ONE (22:48)
[2017-10-18] MEDS: ELIQUIS PO SCH (23:07)
[2017-10-19] MEDS: SODIUM CHLORIDE 1,000 ML IV SCH ×2 (00:07→21:53)
[2017-10-19] MEDS: CARDIZEM PO SCH ×3 (00:08→20:30)
[2017-10-19] MEDS: DUONEB NEB SCH ×5 (01:31→22:32)
[2017-10-19] MEDS ORDERED: POTASSIUM CHLORIDE PREMIX RUN 10 MEQ in PREMIX 100 ML WATER 1 BAG IV STA (07:52)
[2017-10-19] MEDS ORDERED: GLUCOPHAGE PO SCH (08:00)
--- NOTE | 2017-10-19 08:38 | CT ---
EXAM: CT Abdomen without contrast. CT Pelvis without contrast. HISTORY: Vomiting. Abdominal tenderness. COMPARISON: 05/30/2017. TECHNIQUE: Multiple axial images of the abdomen and pelvis were obtained without intravenous contras t. Images were reformatted in the sagittal and coronal plane. FINDINGS: Please note that evaluation of the abdominal and pelvic structures is limited due to lack of intravenous contrast. No acute abnormality identified in the lung bases. Probable sebaceous cyst in the right lateral ches t on axial image two. Degenerative changes present in the spine. Hepatic cyst noted. Gallbladder is absent. The pancreas, spleen, and adrenal glands demonstrate nor mal contour. Left renal cyst noted. There is no hydronephrosis. Small hiatal hernia is present. The bowel is normal in course and caliber without evidence for obstr uction or inflammatory process. Colonic diverticulosis noted. The appendix is not seen. Urinary bl adder is unremarkable. Fat-containing right inguinal hernia is stable. Atherosclerotic calcificatio ns are present. No free fluid or free air identified. Probable lipoma in the medial left hip muscul ature. IMPRESSION: No acute abnormality in the abdomen or pelvis.
--- NOTE | 2017-10-19 08:58 | HP ---
DATE OF SERVICE: 10/18/17 CHIEF COMPLAINT: Nausea and vomiting. HISTORY OF PRESENT ILLNESS: This is a 72 year old male who took the patient home on a weekend pass to return Wednesday. The patient's called the police on Wednesday because the patient's feet were not elevated. The patient was too too ill to return to the halfway by car so the call the EMS. EMS found the patient on an old plywood porch on the floor with no air, vomit and urine all over him. Leslie Santamaria from the [facility] been contacted. The patient been complaining of the weakness, tiredness and hurting all over. Evaluated in the emergency room by Dr. Medina. WBC was 18,000. At that time the patient being admitted to the hospital for IV fluids and the treatment of the dehydration. REVIEW OF SYSTEMS: CONSTITUTIONAL: No fever, no chills. Weakness and tiredness. HEENT: Normal. ENDOCRINE: No weight gain; no weight loss. CVS: No chest pain. No PND, no orthopnea. No shortness of breath. No PND, no orthopnea. RESPIRATORY: Cough, Congestion. No hemoptysis. GI: Nausea, Vomiting. Abdominal pain. No melena. : No hematuria. No polyuria. MUSCULOSKELETAL: No joint swelling. PSYCHIATRIC: Not anxious. No depression. No suicidal thoughts. No homicidal thoughts. SKIN: Intact, no open lesions. PAST MEDICAL HISTORY: Coronary artery disease Atrial fibrillation on Eliquis Hypertension CVA Seizure disorder COPD Oxygen dependant Left carotid block Chronic kidney disease Diabetes Osteoarthritis DJD spine Chronic pain syndrome PAST SURGICAL HISTORY: Cholecystectomy Appendectomy Cataract surgery PERSONAL HISTORY: The patient is and lives with the . Quit smoking 24 years ago. FAMILY HISTORY: High blood pressure Diabetes MEDICATIONS: Prilosec Metformin Lyrica Temazepam Symbicort Morphine Eliquis Diltiazem ALLERGIES: No known drug allergies. PHYSICAL EXAMINATION: V/S: Blood pressure 150/93, respiratory rate 22, heart rate 94, temperature 99, saturation 94%. GENERAL: Sick looking male laying in a bed. HEENT: Atraumatic, normocephalic. No scleral icterus. Pallor Positive. Mucosa dry. NECK: Supple. No JVD, no bruit. No lymphadenopathy. No thyromegaly. HEART: S1, S2 normal. No murmur. No cyanosis or clubbing. No ascites. LUNGS: Decreased and clear to auscultation. No rales or rhonchi. ABDOMEN: Soft, discomfort all over. Bowel sounds are active. No CVA tenderness. No rigidity or guarding. EXTREMITIES: No pedal edema. No cyanosis or clubbing MUSCULOSKELETAL: Normal joints, no swelling. NEUROLOGIC: The patient is awake but not oriented to time, place and person. Talking out of his mind. SKIN: Intact; no open lesions. LYMPHATIC: No lymph nodes palpable. LABS: Sodium 142, potassium 3.5, chloride 106, bicarb 18, BUN 9, creatinine 0.81, glucose 149, WBC 18.97, hgb 13.0, hct 39.6, plt count 282 ASSESSMENT: 1. Status post fall 2. Acute gastroenteritis 3. Recent pneumonia with extensive stay at the [facility] 4. Atrial fibrillation 5. Hypertension 6. Dyslipidemia 7. Osteoarthritis 8. DJD spine PLAN: 1. Admit patient to the regular floor 2. CBC and CMP today and daily 3. Cardiac enzymes and Troponin 4. IV fluids 5. Rocephin 1 gram daily 6. Lovenox for the DVT prophylaxis 7. Vancomycin 1 gram daily 8. Continue home medications Will follow the patient in daily rounds. TIME SPENT: MORE THAN 70 minutes MTDD
[2017-10-19] MEDS ORDERED: VANCOMYCIN 1 GM in SODIUM CHLORIDE 250 ML IV SCH (09:00)
[2017-10-19] MEDS: ELIQUIS PO SCH ×2 (09:11→20:30)
[2017-10-19] MEDS ORDERED: POTASSIUM CHLORIDE PREMIX RUN 10 MEQ in PREMIX 100 ML WATER 1 BAG IV ONE (10:00)
[2017-10-19] MEDS ORDERED: MORPHINE SULFATE TAB PO STA (10:52)
[2017-10-19] MEDS ORDERED: MORPHINE SULFATE TAB PO SCH ×2 (13:00→15:00)
[2017-10-19] MEDS: VANCOMYCIN 1 GM in SODIUM CHLORIDE 250 ML IV SCH ×2 (13:46→21:59)
[2017-10-19] MEDS: ZOFRAN 4 MG/2 ML IVP PRN ×2 (13:52→22:06)
[2017-10-19] MEDS: ROCEPHIN 1 GM in SODIUM CHLORIDE 50 ML IV SCH (16:40)
[2017-10-19] MEDS: MORPHINE SULFATE TAB PO SCH (20:28)
[2017-10-19] MEDS: CATAPRES PO SCH (20:29)
[2017-10-19] MEDS: LOVENOX SUBCUT SCH (20:30)
[2017-10-19] MEDS ORDERED: CLONIDINE HCL PO SCH (21:00)
[2017-10-20] MEDS: ZOFRAN 4 MG/2 ML IVP PRN (04:09)
[2017-10-20] MEDS: DUONEB NEB SCH ×4 (04:30→23:25)
[2017-10-20] MEDS: MORPHINE SULFATE TAB PO SCH ×3 (05:39→21:08)
[2017-10-20] MEDS: CARDIZEM PO SCH ×3 (05:40→21:12)
[2017-10-20] MEDS: ROCEPHIN 1 GM in SODIUM CHLORIDE 50 ML IV SCH (09:04)
[2017-10-20] MEDS: TOBREX 0.3% OP SCH ×3 (09:05→21:08)
[2017-10-20] MEDS: TOPROL XL PO SCH (09:05)
[2017-10-20] MEDS: CATAPRES PO SCH ×2 (09:05→21:07)
[2017-10-20] MEDS: ELIQUIS PO SCH ×2 (09:05→21:06)
--- NOTE | 2017-10-20 09:20 | PN ---
DATE OF SERVICE: 10/19/17 SUBJECTIVE: Still vomiting and complains of some abdominal pain. Talking but doesn't make any sense. REVIEW OF SYSTEMS: CONSTITUTIONAL: No fever, no chills. HEENT: Normal. ENDOCRINE: No weight gain, no weight loss. CVS: No angina symptoms. No CHF symptoms. No palpitations. No atypical chest pain for CAD. No shortness of breath. No PND, no orthopnea. RESPIRATORY: No cough, no hemoptysis. GI: No nausea, no vomiting. No abdominal pain. : No hematuria. No polyuria. MUSCULOSKELETAL: No joint swelling. PSYCHIATRIC: Not anxious. No depression. No suicidal thoughts. No homicidal thoughts. SKIN: Intact. No rash. PHYSICAL EXAMINATION: V/S: Blood pressure 148/95, respiratory rate 18, heart rate 78 and temperature 97.4 with saturation 97%. HEENT: Normocephalic, atraumatic. Mucosa dry. Pallor positive GENERAL: Sick looking male lying in a bed. NECK: Supple. No JVD, no carotid bruit. No lymphadenopathy. LUNGS: Decreased and basilar crackles. Clear to auscultation. No rales or rhonchi. HEART: S1, S2 normal. No S3. No murmur, gallop or regurgitation. ABDOMEN: Soft, Discomfort all over. Bowel sounds active. No rigidity. No rebound or guarding. No CVA tenderness. EXTREMITIES: No cyanosis, clubbing or pedal edema. MUSCULOSKELETAL: No joint swelling. NEUROLOGIC: Awake, alert, oriented times three. No focal deficit. LYMPHATIC: No lymph nodes palpable. SKIN: Intact. LABS: WBC 11.17, hgb 12.7, hct 38.5, plt count 255, sodium 142, potassium 3.3, chloride 107, bicarb 22, BUN 9, creatinine 0.76 and glucose 112. ASSESSMENT: 1. Acute gastroenteritis 2. Dehydration 3. Elevated white count, treating with IV antibiotics 4. History of chronic pain syndrome 5. Hypertension 6. Dyslipidemia 7. COPD 8. Atrial fibrillation on Eliquis PLAN: 1. Continue the Rocephin for the gram negative and Vancomycin for the health care acquired infections. As the patient did have a lengthy hospital stay within one month ago. 2. DUO NEBS 3. CT scan of abdomen and pelvic 4. IV fluids 5. Zofran PRN 6. Clear liquid diet at this time. TIME SPENT: More than 35 minutes MTDD
[2017-10-20] MEDS: VANCOMYCIN 1 GM in SODIUM CHLORIDE 250 ML IV SCH ×2 (10:34→21:08)
[2017-10-20] MEDS: SODIUM CHLORIDE 1,000 ML IV SCH ×2 (14:05→23:36)
[2017-10-20] MEDS: LOVENOX SUBCUT SCH (21:08)
[2017-10-21] MEDS: CARDIZEM PO SCH ×3 (04:16→21:10)
[2017-10-21] MEDS: MORPHINE SULFATE TAB PO SCH ×3 (04:16→21:11)
[2017-10-21] MEDS: DUONEB NEB SCH ×3 (05:03→17:28)
[2017-10-21] MEDS ORDERED: DECADRON 4 MG/ML SDV IVP STA (07:49)
[2017-10-21] MEDS: ROCEPHIN 1 GM in SODIUM CHLORIDE 50 ML IV SCH (08:02)
[2017-10-21] MEDS: CALMOSEPTINE OINTMENT TP SCH ×2 (08:34→21:12)
[2017-10-21] MEDS: VANCOMYCIN 1 GM in SODIUM CHLORIDE 250 ML IV SCH (09:17)
[2017-10-21] MEDS: CATAPRES PO SCH ×2 (10:04→21:11)
[2017-10-21] MEDS: ELIQUIS PO SCH ×2 (10:04→21:10)
[2017-10-21] MEDS: TOPROL XL PO SCH (10:04)
[2017-10-21] MEDS: TOBREX 0.3% OP SCH ×3 (10:04→21:10)
--- NOTE | 2017-10-21 13:05 | DI ---
EXAM: Chest one view HISTORY: Cough, this breath sounds COMPARISON: 06/08/2017 TECHNIQUE: Single view of the chest was performed FINDINGS: The lungs are clear. There is no pleural effusion or pneumothorax. The heart is normal i n size. The mediastinal contour is normal, noting atherosclerosis. There are no acute abnormalities of the bones. IMPRESSION: No acute cardiopulmonary process.
[2017-10-21] MEDS: SODIUM CHLORIDE 1,000 ML IV SCH (15:54)
[2017-10-21] MEDS: VANCOMYCIN 500 MG in SODIUM CHLORIDE 100 ML IV SCH (21:06)
[2017-10-21] MEDS: LOVENOX SUBCUT SCH (21:08)
[2017-10-22] MEDS: DUONEB NEB SCH ×4 (01:16→17:52)
[2017-10-22] MEDS: CARDIZEM PO SCH ×4 (05:00→22:37)
[2017-10-22] MEDS: MORPHINE SULFATE TAB PO SCH ×4 (05:00→22:37)
[2017-10-22] MEDS: SODIUM CHLORIDE 1,000 ML IV SCH (05:45)
[2017-10-22] MEDS: VANCOMYCIN 500 MG in SODIUM CHLORIDE 100 ML IV SCH ×2 (09:00→22:36)
[2017-10-22] MEDS: TOPROL XL PO SCH (09:00)
[2017-10-22] MEDS: ELIQUIS PO SCH ×3 (09:00→22:37)
[2017-10-22] MEDS: TOBREX 0.3% OP SCH ×3 (09:00→20:08)
[2017-10-22] MEDS: CATAPRES PO SCH ×3 (09:00→22:37)
[2017-10-22] MEDS: ROCEPHIN 1 GM in SODIUM CHLORIDE 50 ML IV SCH (09:00)
[2017-10-22] MEDS: CALMOSEPTINE OINTMENT TP SCH ×2 (09:04→20:35)
[2017-10-22] MEDS ORDERED: HALDOL IM ONE (09:06)
[2017-10-22] MEDS: LOVENOX SUBCUT SCH (20:25)
[2017-10-23] MEDS: HALDOL IM PRN (02:16)
--- NOTE | 2017-10-23 02:47 | ED.PDOC ---
Procedures - IV/Art Line Insertion Location: rt hand Type of Line: Peripheral IV Invasive Line/IV Catheter Gauge: 22 Number of Attempts: 1 Blood Return Positive: Yes Invasive Line/IV Flushes Without Difficulty: Yes Conscious Sedation - Pre-op Assessment Weight: 159 lb Surgical History: GALBLADDER - Medical History Past Medical History: Hypertension, Diabetes, CVA Other History: left carotid aneurysm - Physical Exam Heart Rate/Rhythm: Regular Rhythm, Tachycardia
[2017-10-23] MEDS: DUONEB NEB SCH ×4 (04:15→17:05)
[2017-10-23] MEDS: VASOTEC IV IVP PRN (05:37)
[2017-10-23] MEDS: MORPHINE SULFATE TAB PO SCH ×3 (05:50→21:08)
[2017-10-23] MEDS: CARDIZEM PO SCH ×3 (05:51→21:09)
[2017-10-23] MEDS ORDERED: POTASSIUM CHLORIDE PREMIX RUN 10 MEQ in PREMIX 100 ML WATER 1 BAG IV STA (09:10)
[2017-10-23] MEDS ORDERED: ZYPREXA IM STA (09:12)
[2017-10-23] MEDS: ROCEPHIN 1 GM in SODIUM CHLORIDE 50 ML IV SCH (09:16)
[2017-10-23] MEDS: TOBREX 0.3% OP SCH ×3 (09:17→21:00)
[2017-10-23] MEDS: CALMOSEPTINE OINTMENT TP SCH ×2 (09:17→21:00)
[2017-10-23] MEDS ORDERED: POTASSIUM CHLORIDE PREMIX RUN 10 MEQ in PREMIX 100 ML WATER 1 BAG IV ONE ×3 (10:00→12:00)
[2017-10-23] MEDS: CATAPRES PO SCH ×2 (10:02→21:09)
[2017-10-23] MEDS: TOPROL XL PO SCH (10:05)
[2017-10-23] MEDS: ELIQUIS PO SCH ×2 (10:07→21:12)
[2017-10-23] MEDS: VANCOMYCIN 500 MG in SODIUM CHLORIDE 100 ML IV SCH ×2 (10:18→21:00)
[2017-10-23] MEDS: SODIUM CHLORIDE 1,000 ML IV SCH ×2 (10:18→10:19)
[2017-10-23] MEDS: LOVENOX SUBCUT SCH (21:10)
[2017-10-24] MEDS: DUONEB NEB SCH ×5 (00:43→23:41)
[2017-10-24] MEDS: SODIUM CHLORIDE 1,000 ML IV SCH ×2 (02:40→13:30)
[2017-10-24] MEDS: MORPHINE SULFATE TAB PO SCH ×3 (06:56→21:51)
[2017-10-24] MEDS: CARDIZEM PO SCH ×3 (06:56→21:51)
[2017-10-24] MEDS: ROCEPHIN 1 GM in SODIUM CHLORIDE 50 ML IV SCH (09:20)
[2017-10-24] MEDS: TOBREX 0.3% OP SCH ×3 (09:23→21:49)
[2017-10-24] MEDS: ELIQUIS PO SCH ×2 (09:23→21:51)
[2017-10-24] MEDS: TOPROL XL PO SCH (09:23)
[2017-10-24] MEDS: CALMOSEPTINE OINTMENT TP SCH ×2 (09:23→22:31)
[2017-10-24] MEDS: CATAPRES PO SCH ×2 (09:24→21:51)
[2017-10-24] MEDS: VANCOMYCIN 500 MG in SODIUM CHLORIDE 100 ML IV SCH (10:50)
[2017-10-24] MEDS ORDERED: POTASSIUM CHLORIDE PREMIX RUN 10 MEQ in PREMIX 100 ML WATER 1 BAG IV STA (12:13)
[2017-10-24] MEDS ORDERED: POTASSIUM CHLORIDE PREMIX RUN 200 ML IV ONE (14:16)
[2017-10-24] MEDS: ZYPREXA IM SCH (14:36)
[2017-10-24] MEDS: ZOSYN 3.375 GM 3.375 GM in SODIUM CHLORIDE 50 ML IV SCH (18:22)
[2017-10-24] MEDS: POTASSIUM CHLORIDE PREMIX RUN 10 MEQ in PREMIX 100 ML WATER 1 BAG IV SCH (19:42)
[2017-10-24] MEDS: VASOTEC IV IVP PRN (21:24)
[2017-10-24] MEDS ORDERED: LASIX IM STA (21:53)
[2017-10-24] MEDS ORDERED: ATIVAN IM STA (21:54)
[2017-10-24] MEDS: LOVENOX SUBCUT SCH (22:05)
[2017-10-24] MEDS ORDERED: SOLU-MEDROL 125 MG IM STA (22:32)
[2017-10-24] MEDS: HALDOL IM PRN (22:46)
[2017-10-25] MEDS: VANCOMYCIN 500 MG in SODIUM CHLORIDE 100 ML IV SCH ×3 (02:01→21:45)
[2017-10-25] MEDS: ZOSYN 3.375 GM 3.375 GM in SODIUM CHLORIDE 50 ML IV SCH ×4 (03:37→20:31)
[2017-10-25] MEDS: MORPHINE SULFATE TAB PO SCH ×3 (04:30→20:35)
[2017-10-25] MEDS: CARDIZEM PO SCH ×3 (04:30→20:35)
[2017-10-25] MEDS: DUONEB NEB SCH ×3 (05:18→17:50)
[2017-10-25] MEDS: SODIUM CHLORIDE 1,000 ML IV SCH ×2 (09:44→09:47)
--- NOTE | 2017-10-25 10:02 | PN ---
DATE OF SERVICE: 10/20/17 SUBJECTIVE: The patient says that he is feeling better today. The patient's medications been updated after contacting pharmacy. No vomiting since yesterday evening. No fever or chills. Still complains about the abdominal pain. CAT scan of the abdomen and pelvis was negative for any acute findings. Urine 3+ Ketone, 1+ bilirubin, Leukocyte esterase negative and Nitrate negative. REVIEW OF SYSTEMS: CONSTITUTIONAL: No fever, no chills. HEENT: Normal. ENDOCRINE: No weight gain, no weight loss. CVS: No angina symptoms. No CHF symptoms. No palpitations. No atypical chest pain for CAD. No shortness of breath. No PND, no orthopnea. RESPIRATORY: No cough, no hemoptysis. GI: No nausea, no vomiting. Abdominal pain. : No hematuria. No polyuria. MUSCULOSKELETAL: No joint swelling. PSYCHIATRIC: Not anxious. No depression. No suicidal thoughts. No homicidal thoughts. SKIN: Intact. No rash. PHYSICAL EXAMINATION: V/S: Blood pressure 162/90, respiratory 18, heart rate 88, temperature 98.5 with saturation 98%. GENERAL: Sick looking male laying in a bed and not in any distress. HEENT: Normocephalic, atraumatic. Mucosa dry. Pallor positive. No icterus. NECK: Supple. No JVD, no carotid bruit. No lymphadenopathy. LUNGS: Decreased and basilar crackles. Clear to auscultation. No rales or rhonchi. HEART: S1, S2 normal. No S3. No murmur, gallop or regurgitation. ABDOMEN: Soft, tender and discomfort right sided. Bowel sounds active. No rigidity. No rebound or guarding. No CVA tenderness. EXTREMITIES: No cyanosis, clubbing or pedal edema. MUSCULOSKELETAL: No joint swelling. NEUROLOGIC: Awake, alert, oriented times three. No focal deficit. LYMPHATIC: No lymph nodes palpable. SKIN: Intact. LABS: WBC 13.72, hgb 13.0, hct 39.2, plt count 324, sodium 140, potassium 3.7, chloride 107, bicarb 18. BUN 9, creatinine 0.87 and glucose 161. ASSESSMENT: 1. Acute gastroenteritis 2. Leukocytosis 3. Treating for health care facility acquired infections with Rocephin and Vancomycin 4. Hypokalemia which is resolved today after replacing the Potassium 5. Depression 6. Chronic pain syndrome 7. Narcotic Opioid dependance PLAN: 1. Continue Rocephin, Vancomycin, IV Fluids 2. Breathing treatments 3. Lovenox for the DVT prophylaxis 4. Daily I&O's TIME SPENT: More than 35 minutes MTDD
[2017-10-25] MEDS: TOBREX 0.3% OP SCH ×3 (10:10→20:41)
[2017-10-25] MEDS: CALMOSEPTINE OINTMENT TP SCH ×2 (10:41→21:15)
[2017-10-25] MEDS: CATAPRES PO SCH ×2 (10:42→20:35)
[2017-10-25] MEDS: TOPROL XL PO SCH (10:42)
[2017-10-25] MEDS: ELIQUIS PO SCH ×2 (10:42→20:35)
[2017-10-25] MEDS: ZYPREXA IM SCH (10:43)
--- NOTE | 2017-10-25 10:54 | CT ---
Exam: CT chest without intravenous contrast. Comparison: 10/18/2017. Reason for exam: Cough with shortness of breath. FINDINGS: Patchy airspace opacities are seen in the left upper and lower lobes with patchy ground-gl ass and airspace opacities in the right middle and right lower lobes. Small right basilar pleural ef fusion with overlying consolidation/atelectasis. Image interpretation is limited by the lack of intravenous contrast administration. The aorta measures 3.8 cm at the level of the arch. Atherosclerotic disease is seen within the aorta and distal arterial vasculature including the coronary vessels. The heart is not enlarged. The gallbladder has been removed. The heart is not enlarged. No suspicious appearing osteoblastic or osteolytic lesions. Degenerative disease is seen in the thoracic spine. 5.4 cm left renal hypodensity is statistically a cyst. 1.3 cm hypodensity is seen in the hepatic parenchyma on axial image number 47. Impression: 1. Small right-sided pleural effusion with overlying atelectasis/pneumonia with patchy ground-glass in the right middle and lower lobes. Imaging findings can be seen with inflammation and early infect ion. 2. Similar appearing scarring changes in the left apex.
--- NOTE | 2017-10-25 11:26 | PN ---
DATE OF SERVICE: 10/21/17 SUBJECTIVE: The patient is not eating much and complaining about some abdominal pain. Says that he does not feel good. REVIEW OF SYSTEMS: CONSTITUTIONAL: No fever, no chills. HEENT: Normal. ENDOCRINE: No weight gain, no weight loss. CVS: No angina symptoms. No CHF symptoms. No palpitations. No atypical chest pain for CAD. No shortness of breath. No PND, no orthopnea. RESPIRATORY: Cough, no hemoptysis. GI: No nausea, no vomiting. Abdominal pain. : No hematuria. No polyuria. MUSCULOSKELETAL: No joint swelling. PSYCHIATRIC: Not anxious. No depression. No suicidal thoughts. No homicidal thoughts. SKIN: Intact. No rash. PHYSICAL EXAMINATION: V/S: Blood pressure 154/77, respiratory rate 18, heart rate 64, temperature 97.9 with saturation 97%. HEENT: Normocephalic, atraumatic. Mucosa dry. Pallor positive. No icterus. NECK: Supple. No JVD, no carotid bruit. No lymphadenopathy. LUNGS: Decreased and basilar crackles. Clear to auscultation. No rales or rhonchi. HEART: S1, S2 normal. No S3. No murmur, gallop or regurgitation. ABDOMEN: Soft, Discomfort all over. Bowel sounds active. No rigidity. No rebound or guarding. No CVA tenderness. EXTREMITIES: No cyanosis, clubbing or pedal edema. MUSCULOSKELETAL: No joint swelling. NEUROLOGIC: Awake, alert, oriented times three. No focal deficit. LYMPHATIC: No lymph nodes palpable. SKIN: Intact. LABS: WBC 13.72, hgb 13.0, hct 39.2, plt count 324, sodium 142, potassium 3.7, chloride 107, bicarb 18, BUN 9, creatinine 0.80, glucose 161. ASSESSMENT: 1. Acute gastroenteritis 2. Dehydration 3. Elevated WBC 4. Pneumonia 5. Hypertension 6. Atrial fibrillation 7. Diabetes 8. DJD spine 9. Hiatal hernia PLAN: 1. Continue Rocephin, Vancomycin and DUO NEBS 2. 1cc Decadron TIME SPENT: More than 35 minutes MTDD
[2017-10-25] MEDS ORDERED: LASIX IVP STA (11:29)
[2017-10-25] MEDS ORDERED: LOPRESSOR IVP STA (11:30)
[2017-10-25] MEDS: SOLU-MEDROL 125 MG IVP SCH ×3 (11:44→20:32)
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
[2017-10-25] MEDS: POTASSIUM CHLORIDE PREMIX RUN 10 MEQ in PREMIX 100 ML WATER 1 BAG IV SCH (14:54)
[2017-10-25] MEDS: VASOTEC IV IVP PRN (16:23)
[2017-10-25] MEDS: LOVENOX SUBCUT SCH (20:40)
[2017-10-26] MEDS: DUONEB NEB SCH ×5 (00:13→20:40)
[2017-10-26] MEDS: ZOSYN 3.375 GM 3.375 GM in SODIUM CHLORIDE 50 ML IV SCH ×4 (00:48→18:29)
[2017-10-26] MEDS: HALDOL IM PRN (00:56)
[2017-10-26] MEDS: MORPHINE SULFATE TAB PO SCH ×3 (05:56→20:15)
[2017-10-26] MEDS: CARDIZEM PO SCH ×3 (05:56→20:14)
[2017-10-26] MEDS: SOLU-MEDROL 125 MG IVP SCH ×3 (07:11→20:40)
[2017-10-26] MEDS ORDERED: K-DUR PO STA (08:17)
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
--- NOTE | 2017-10-26 09:18 | PN ---
DATE OF SERVICE: 10/24/17 SUBJECTIVE: The patient still spitting out the food, spitting out the medication. Potassium is slightly improved at 3.1 from the 2.5 yesterday with the IV Potassium. With the Zyprexa the patient is more quite and calm today. REVIEW OF SYSTEMS: CONSTITUTIONAL: No fever, no chills. HEENT: Normal. ENDOCRINE: No weight gain, no weight loss. CVS: No angina symptoms. No CHF symptoms. No palpitations. No atypical chest pain for CAD. No shortness of breath. No PND, no orthopnea. RESPIRATORY: No cough, no hemoptysis. GI: No nausea, no vomiting. No abdominal pain. : No hematuria. No polyuria. MUSCULOSKELETAL: No joint swelling. PSYCHIATRIC: Not anxious. No depression. No suicidal thoughts. No homicidal thoughts. SKIN: Intact. No rash. PHYSICAL EXAMINATION: V/S: Blood pressure 154/77, respiratory rate 16, heart rate 96, temperature 97.8 with saturation 98%. HEENT: Normocephalic, atraumatic. Mucosa dry. Pallor positive. No icterus. NECK: Supple. No JVD, no carotid bruit. No lymphadenopathy. LUNGS: Decreased and basilar crackles right more than the left.Clear to auscultation. No rales or rhonchi. HEART: S1, S2 normal. No S3. No murmur, gallop or regurgitation. ABDOMEN: Soft, nontender. Bowel sounds active. No rigidity. No rebound or guarding. No CVA tenderness. EXTREMITIES: No cyanosis, clubbing or pedal edema. MUSCULOSKELETAL: No joint swelling. NEUROLOGIC: Awake, alert, oriented times three. No focal deficit. LYMPHATIC: No lymph nodes palpable. SKIN: Intact. LABS: WBC 18.79, hgb 12.4, hct 37.3, plt count 335, sodium 138, potassium 3.1, chloride 104, bicarb 21, BUN 16, creatinine 0.765, glucose 160. ASSESSMENT: 1. Status post gastroenteritis 2. Sepsis most like from pneumonia 3. Failure to thrive 4. Severe Hypokalemia which better 5. Chronic pain syndrome 6. Depression 7. Alzheimer's Dementia with Behavioral changes PLAN: 1. Zyprexa 5mg IM daily 2. Stop the Rocephin 3. Will add the Zosyn along with the Vancomycin 4. Breathing treatments 5. Daily I&O's TIME SPENT: More than 35 minutes MTDD
[2017-10-26] MEDS: ZYPREXA IM SCH (09:47)
[2017-10-26] MEDS: TOBREX 0.3% OP SCH ×3 (09:47→20:13)
[2017-10-26] MEDS: VANCOMYCIN 500 MG in SODIUM CHLORIDE 100 ML IV SCH ×2 (09:48→20:15)
[2017-10-26] MEDS: TOPROL XL PO SCH (09:49)
[2017-10-26] MEDS: CATAPRES PO SCH ×2 (09:49→20:14)
[2017-10-26] MEDS: ELIQUIS PO SCH ×2 (09:50→20:14)
[2017-10-26] MEDS: CALMOSEPTINE OINTMENT TP SCH ×2 (09:54→20:13)
[2017-10-26] MEDS: HUMULIN R SUBCUT PRN ×3 (11:56→20:37)
[2017-10-26] MEDS ORDERED: K-DUR PO ONE (12:00)
--- NOTE | 2017-10-26 12:57 | PN ---
DATE OF SERVICE: 10/25/17 SUBJECTIVE: The patient had acute respiratory failure over the night for which the patient has to be transferred to the ICU and put him on the nonbreather. Given Lasix 40mg IV push, Solu-Medrol which did make him better. The patient and the was having some kind of argument and this all started. Question of aspiration was there. As of now the patient response to the verbal stimuli and goes back sleep. REVIEW OF SYSTEMS: CONSTITUTIONAL: No fever, no chills. HEENT: Normal. ENDOCRINE: No weight gain, no weight loss. CVS: No angina symptoms. No CHF symptoms. No palpitations. No atypical chest pain for CAD. No shortness of breath. No PND, no orthopnea. RESPIRATORY: No cough, no hemoptysis. GI: No nausea, no vomiting. No abdominal pain. : No hematuria. No polyuria. MUSCULOSKELETAL: No joint swelling. PSYCHIATRIC: Not anxious. No depression. No suicidal thoughts. No homicidal thoughts. SKIN: Intact. No rash. PHYSICAL EXAMINATION: V/S: Blood pressure 190/91, respiratory rate 24, heart rate 91 and temperature 99.5 HEENT: Normocephalic, atraumatic. Mucosa dry. Pallor positive. No icterus. NECK: Supple. No JVD, no carotid bruit. No lymphadenopathy. LUNGS: Decreased and basilar crackles right more than the left. Clear to auscultation. No rales or rhonchi. HEART: S1, S2 normal. No S3. No murmur, gallop or regurgitation. ABDOMEN: Soft, nontender. Bowel sounds active. No rigidity. No rebound or guarding. No CVA tenderness. EXTREMITIES: No cyanosis, clubbing or pedal edema. MUSCULOSKELETAL: No joint swelling. NEUROLOGIC: Responses to the verbal stimuli and goes back to sleep. No focal deficit. LYMPHATIC: No lymph nodes palpable. SKIN: Intact. LABS: WBC 18.79, hgb 12.4, hct 37.3, plt count 335, Sodium 138, potassium 3.1, chloride 104, bicarb 21, BUN 16, creatinine 0.76 and glucose 160. ASSESSMENT: 1. Hypoxemic respiratory failure secondary to the pneumonia, questionable aspiration 2. Hypokalemia 3. Dementia with behavioral changes 4. Hypertension 5. Dyslipidemia 6. Osteoarthritis 7. DJD spine 8. Chronic pain syndrome PLAN: 1. Continue Lovenox SUBCUT daily 2. Haloperidol 0.5mg PRN 3. DUO NEBS 4. Solu-Medrol 125mg Q 8 hours 5. Zosyn 6. Vancomycin 7. Daily I&O's GUARDED PROGNOSIS been discussed been discussed with the patient's and verbalized understanding. TIME SPENT: More than 50 minutes for ICU care. MTDD
[2017-10-26] MEDS: SODIUM CHLORIDE 1,000 ML IV SCH (17:34)
[2017-10-26] MEDS: LOVENOX SUBCUT SCH (20:13)
[2017-10-27] MEDS: ZOSYN 3.375 GM 3.375 GM in SODIUM CHLORIDE 50 ML IV SCH ×5 (00:41→23:49)
[2017-10-27] MEDS: SOLU-MEDROL 125 MG IVP SCH (04:55)
[2017-10-27] MEDS: CARDIZEM PO SCH ×3 (05:08→20:49)
[2017-10-27] MEDS: MORPHINE SULFATE TAB PO SCH ×4 (05:08→20:49)
[2017-10-27] MEDS: DUONEB NEB SCH ×4 (05:31→21:41)
[2017-10-27] MEDS: HUMULIN R SUBCUT PRN ×4 (06:26→21:27)
[2017-10-27] MEDS: VANCOMYCIN 500 MG in SODIUM CHLORIDE 100 ML IV SCH (09:17)
[2017-10-27] MEDS: ZYPREXA IM SCH (09:18)
[2017-10-27] MEDS: TOPROL XL PO SCH (09:18)
[2017-10-27] MEDS: CATAPRES PO SCH ×2 (09:18→20:49)
[2017-10-27] MEDS: ELIQUIS PO SCH ×2 (09:18→20:51)
[2017-10-27] MEDS: CALMOSEPTINE OINTMENT TP SCH ×2 (09:19→20:50)
[2017-10-27] MEDS: TOBREX 0.3% OP SCH ×3 (09:19→20:50)
[2017-10-27] MEDS: PROTONIX PO SCH (09:32)
[2017-10-27] MEDS ORDERED: SOLU-MEDROL 125 MG IVP SCH (13:00)
[2017-10-27] MEDS: SOLU-MEDROL 40 MG IVP SCH ×2 (13:25→20:11)
--- NOTE | 2017-10-27 13:35 | DI ---
EXAM: Single view of the chest. History: Follow-up pneumonia Comparison: Chest CT 10/25/2017, chest radiograph 10/21/2017 Findings: Heart size is upper limits of normal. No focal consolidation. No appreciable pleural flu id and no pneumothorax. No acute osseous abnormalities. Impression: No acute cardiopulmonary process
--- NOTE | 2017-10-27 15:56 | RS.PTINEVL ---
Subjective - Patient information Date of Evaluation: 10/27/17 Date of Arrival on Unit: 10/18/17 Admitted From:: Home Diagnosis: s/p fall, gastroenteritis resolved, Resp failure with possible aspiration Usual Living Arrangement: With Spouse Living Arrangement Comments: lives with , patient was taken out of the senior care on 10/16/2017. Home Environment: House, Stairs (few) Medical History: Hypertension, CVA/TIA, COPD, Dementia, Diabetes, CHF, Arthritis Medical History Comments:: DJD, chronic pain, CAD, afib, seizure, chronic kidney disease LATEX ALLERGY?: No Surgical History: Cholecystectomy Medications: see chart Subjective Information/ Patient Comments:: pt states " My heel hurts" referring to R heel. Heel is red, blanchable. - Level of function Abilities prior to this admission: pt is poor historian, unable to recall prior level of function. took pt AMA from senior care. Current Level of Function: Dependent Current Equipment Used at Home: wheelchair, shower care, bedside commode. Pain Assessement - Location BLE Description: Sharp, Chronic Pain Behavior: Moaning, Grasping Site, Facial Grimacing Pain Aggravating Factors: Changing Position, Exercise/Activity Pain Alleviating Factors: Medication Interventions - Objective Patient Orientation: Person Current Interventions: IV's, Telemetry, Christensen Catheter Range of Motion - ROM Right Upper Extremity AROM: WFL's Left Upper Extremity AROM: WFL's Right Lower Extremity AROM: WFL's Left Lower Extremity AROM: WFL's Muscle Strength - Muscle Strength Right Upper Extremity Strength: Mild Weakness (BUE grossly 3+/5) Left Upper Extremity Strength: Mild Weakness (BUE grossly 3+/5) Right Lower Extremity Strength: Mild Weakness (hip flex 3/5, knee flex/ext 3+/5 , ankle DF/PF 3+/5) Left Lower Extremity Strength: Mild Weakness (hip flex 3/5, knee flex/ext 3+/5, ankle DF/PF 3+/5) Sensation - Sensation Right Upper Extremity Sensation: Intact/Normal Left Upper Extremity Sensation: Intact/Normal Right Lower Extremity Sensation: Intact/Normal Left Lower Extremity Sensation: Intact/Normal Palpation Palpation Findings: Tenderness (BLE) Balance - Sitting Balance and Reactions Static Sitting Balance: Poor Dynamic Sitting Balance: Poor Sitting Equilibrium Reactions: Absent Left, Absent Right Sitting Protective Reactions: Absent Left, Absent Right - Standing Balance and Reactions Static Standing Balance: Poor Dynamic Standing Balance: Zero Standing Equilibrium Reactions: Absent Left, Absent Right Standing Protective Reactions: Absent Left, Absent Right - Comments Balance Assessment Comments: pt unable to maintain sitting balance with resistance. Unable to stand without max of 2 Functional Mobility - Bed Mobility Rolling R/L: Max Assist, 2 person assist Scooting: Max Assist, 2 person assist Supine to Sit: Max Assist, 2 person assist - Transfers Sit to Stand: Max Assist, 2 person assist Stand to Sit: Max Assist, 2 person assist Stand Pivot Transfers: Max Assist, 2 person assist Comments:: pt stand pivot with max assist of 2 , unable to stand fully erect, unable to follow most commands. - Safety Awareness Safety Awareness: Poor ISABEL INDEX SCORE: n/a Treatment time - Time with patient Total treatment time: 27 Patient Education - Education Patient Education: Education of Plan of Care Teaching Recipient: Patient Teaching Methods: Discussion Comments: attempted to discuss POC with pt, however pt unable to truly comprehend, Discussed POC and pain in R heel with case management. Assessment - Assessment Problem List:: Decreased level of function, Requires training/education, Decreased safety/Risk of falls, Weakness, Cognitive status limits abilities Rehab Potential: Fair Further Therapy Indicated?: Yes Evaluation Complexity: HISTORY: Medium (CVA, CHF, COPD, DM, OA), EXAM OF BODY SYSTEMS: Medium (bed mobility, transfers, posture, balance, strength), CLINICAL PRESENTATION: Medium (evolving), CLINICAL DECISION MAKING: Medium Short Term Goals GOAL #1: pt demonstrate rolling and scooting with mod x 2 Goal to be met by: 10/29/17 GOAL #2: Transfer sup to/from sit mod x 2, sit to/from stand mod x 2 Goal to be met by: 10/29/17 GOAL #3: pt stand pivot bed to/from chair with mod x 2 Goal to be met by: 10/29/17 Crime Scene Specialist Goals GOAL #1: pt demonstrate rolling with mod x 1 Goal to be met by: 11/02/17 GOAL #2: pt transfer sup to/from sit mod x 1, sit to/from stand mod x 1 Goal to be met by: 11/02/17 GOAL #3: pt amb 10ft with rwx with mod x 1-2 Goal to be met by: 11/02/17 Plan Plan of Care: Therapeutic EX, Therapeutic Activity Other:: gait training Frequency of Treatment: 1-2 X day, as tolerated Duration of Treatment: 5-6 days Anticipated Discharge Destination: [facility] Scene Specialist Care Facility Treatment Diagnosis (ICD 10 Codes): M62.81 general weakness. R 26.81 balance impaired Has the Physician been added for Co-signature?: Yes
[2017-10-27] MEDS: LOVENOX SUBCUT SCH (20:51)
[2017-10-28] MEDS: CARDIZEM PO SCH ×3 (04:42→21:05)
[2017-10-28] MEDS: MORPHINE SULFATE TAB PO SCH ×3 (04:42→21:05)
[2017-10-28] MEDS: ZOSYN 3.375 GM 3.375 GM in SODIUM CHLORIDE 50 ML IV SCH (05:10)
[2017-10-28] MEDS: SOLU-MEDROL 40 MG IVP SCH (05:10)
[2017-10-28] MEDS: DUONEB NEB SCH ×4 (05:28→19:07)
[2017-10-28] MEDS: PROTONIX PO SCH (05:44)
[2017-10-28] MEDS: HUMULIN R SUBCUT PRN ×4 (06:07→21:07)
[2017-10-28] MEDS: CATAPRES PO SCH ×2 (09:28→21:05)
[2017-10-28] MEDS: ZYPREXA IM SCH (09:29)
[2017-10-28] MEDS: TOBREX 0.3% OP SCH ×3 (09:29→21:04)
[2017-10-28] MEDS: KEFLEX PO SCH ×2 (09:29→21:04)
[2017-10-28] MEDS: TOPROL XL PO SCH (09:29)
[2017-10-28] MEDS: ELIQUIS PO SCH ×2 (09:29→21:06)
[2017-10-28] MEDS: MEDROL DOSEPAK PO SCH ×4 (09:29→21:06)
[2017-10-28] MEDS: CALMOSEPTINE OINTMENT TP SCH ×2 (09:40→21:11)
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
[2017-10-28] MEDS: SODIUM CHLORIDE 1,000 ML IV SCH (11:57)
[2017-10-28] MEDS: LOVENOX SUBCUT SCH (21:06)
[2017-10-29] MEDS: DUONEB NEB SCH ×2 (05:07→09:44)
[2017-10-29] MEDS: CARDIZEM PO SCH ×2 (05:37→12:28)
[2017-10-29] MEDS: PROTONIX PO SCH (05:37)
[2017-10-29] MEDS: MORPHINE SULFATE TAB PO SCH ×2 (05:37→12:27)
[2017-10-29] MEDS: MEDROL DOSEPAK PO SCH ×2 (05:37→12:20)
[2017-10-29] MEDS: HUMULIN R SUBCUT PRN ×2 (05:39→12:21)
[2017-10-29] MEDS: ELIQUIS PO SCH (09:41)
[2017-10-29] MEDS: CATAPRES PO SCH (09:41)
[2017-10-29] MEDS: TOBREX 0.3% OP SCH (09:43)
[2017-10-29] MEDS: KEFLEX PO SCH (09:43)
[2017-10-29] MEDS: TOPROL XL PO SCH (09:45)
[2017-10-29] MEDS: CALMOSEPTINE OINTMENT TP SCH (09:47)
[2017-10-29 09:58] VITALS: BP 115/67; TEMP 98.3
[2017-10-29] MEDS: ZYPREXA IM SCH (10:36)
[2017-10-29] MEDS ORDERED: ZYPREXA PO SCH (11:00)
--- NOTE | 2017-10-29 13:23 | CM.DICTOOL ---
ADMISSION: 10/18/17 19:32 DISCHARGE: OCTOBER 29, 2017 DATE OF SERVICE: 10/29/17 FINAL DIAGNOSIS GASTROENTERITIS, RESOLVED DEHYDRATION FAILURE TO THRIVE ATELECTASIS LEFT BASE, MINIMAL DEPENDENT HISTORY OF RECENT PNEUMONIA HYPOKALEMIA HYPERTENSION ATRIAL FIBRILLATION DIABETES, TYPE 2 DEGENERATIVE DISEASE, SPINE AND HIPS DIVERTICULOSIS HIATAL HERNIA, SMALL PER CT HYPERGLYCEMIA DUE TO STEROIDS LAST VITALS Temp Pulse Resp BP Pulse Ox 98.3 F 56 L 18 115/67 96 10/29/17 09:57 10/29/17 09:57 10/29/17 09:57 10/29/17 09:57 10/29/17 09:57 TAKE THESE MEDICATIONS Acetaminophen (Tylenol) 650 mg PO Q4H PRN PRN Reason: Mild Pain Apixaban (Eliquis) 5 mg PO BID [facility] Last Admin: 10/29/17 09:41 Dose: 5 mg Calamine/Phenol (Calmoseptine Ointment) 1 applic TP BID [facility] Last Admin: 10/29/17 09:47 Dose: 1 applic Cephalexin (Keflex) 500 mg PO Q12HR [facility] Last Admin: 10/29/17 09:43 Dose: 500 mg for 5 days Clonidine (Catapres) 0.2 mg PO BID [facility] Last Admin: 10/29/17 09:41 Dose: 0.2 mg Diltiazem HCl (Cardizem) 30 mg PO Q8HR [facility] Last Admin: 10/29/17 12:28 Dose: Not Given Insulin Human Regular (Humulin R) 0 unit SUBCUT PRN PRN; Protocol PRN Reason: hyperglycemia Last Admin: 10/29/17 12:21 Dose: 3 unit Methylprednisolone (Medrol Dosepak) 4 mg PO 1300 [facility]; Taper Stop: 11/02/17 09:29 Last Admin: 10/29/17 12:20 Dose: 4 mg Metoprolol Succinate (Toprol Xl) 25 mg PO DAILY [facility] Last Admin: 10/29/17 09:45 Dose: 25 mg Morphine Sulfate (Morphine Sulfate Tab) 30 mg PO Q8HR [facility] Last Admin: 10/29/17 12:27 Dose: Not Given Olanzapine (Zyprexa) 5 mg PO DAILY [facility] Last Admin: 10/29/17 12:21 Dose: 5 mg Pantoprazole Sodium (Protonix) 40 mg PO QDAC [facility] Last Admin: 10/29/17 05:37 Dose: 40 mg Colace 100 mg PO Daily Last Admin: ALLERGIES No Known Allergies Allergy (Verified 10/18/17 16:04) NEW PRESCRIPTIONS: COMPLETE MEDROL DOSE PACK DIRECTED KEFLEX 500 MG BID FOR 5 MORE DAYS SMOKING: NOT APPLICABLE DISEASE SPECIFIC EDUCATION: NUTRITION ACTIVITY PARTICIPATION WITH THERAPY LAB REVIEW: 10/29/17 04:30 10/29/17 04:30 10/29/17 04:30: Sodium 138, Potassium 4.2, Chloride 109 H, Carbon Dioxide 23, Anion Gap 10.2, BUN 35 H, Creatinine 0.77, Estimated GFR (MDRD) 99.00, BUN/ Creatinine Ratio 45.45, Glucose 112, Calcium 8.7, Total Bilirubin 0.3, AST 11 L , ALT 15, Alkaline Phosphatase 42 L, Total Protein 4.8 L, Albumin 2.2 L, Globulin 2.6, Albumin/Globulin Ratio 0.85 10/29/17 04:30: WBC 7.61, RBC 3.45 L, Hgb 9.5 L, Hct 29.2 L, MCV 84.6, MCH 27.5 , MCHC 32.5, RDW Coeff of Franko 14.8, Plt Count 285, Immature Gran % (Auto) 1.6, Neut % (Auto) 79.7, Lymph % (Auto) 10.0, [place] % (Auto) 8.7, Eos % (Auto) 0.0, Baso % (Auto) 0.0, Immature Gran # (Auto) 0.1, Neut # (Auto) 6.1, Lymph # (Auto ) 0.8, [place] # (Auto) 0.7, Eos # (Auto) 0.0, Baso # (Auto) 0.0 PLAN: DISCHARGE TO [facility] DIET: PUREED MEATS, SOFT EASY TO CHEW FOODS LIKES ICE CREAM NUTRITIONAL SUPPLEMENT; BOOST TWICE DAILY HOSPICE EXECUTIVE DIRECTOR TO SEE FOR OPTIMAL NUTRITIONAL INTAKES ACTIVITY: UP TO CHAIR AND DINING ROOM FOR MEALS TURN WITH INCONTINENT CARE NEEDED ORDERS: PHYSICAL THERAPY EVALUATION OCCUPATIONAL THERAPY EVALUATION SPEECH THERAPY EVALUATION VITAL SIGNS DAILY FOR 1 WEEK, THEN WEEKLY WEIGH MONTHLY LABS: CBC, CMP NEXT WEEK MR. BRAN IS ALERT TO PERSON. HE IS COOPERATIVE TODAY, SPEECH IS CLEAR WITH APPROPRIATE RESPONSES. HE IS FEEDING HIMSELF TODAY WITH A FAIR APPETITE NOTED. HE IS TOLERATING REGULAR LIQUIDS AND SOFT FOODS. SKIN IS INTACT EXCEPT FOR A STAGE 2 DECUBITUS TO THE LEFT HIP THAT WAS PRESENT ON ADMISSION. HE IS INCONTINENT OF URINE AT THIS TIME. HE REQUIRES MAX ASSIST OF 2 STAFF MEMBERS FOR TRANSFERS. MIRTA LOMELI MD
--- NOTE | 2017-11-26 09:14 | PN ---
DATE OF SERVICE: 10/26/17 SUBJECTIVE: The patient was admitted with sepsis and gastroenteritis and dehydration. The patient is awake and alert and more cooperative today morning. He ate some food. REVIEW OF SYSTEMS: CONSTITUTIONAL: No fever, no chills. HEENT: Normal. ENDOCRINE: No weight gain, no weight loss. CVS: No angina symptoms. No CHF symptoms. No palpitations. No atypical chest pain for CAD. No shortness of breath. No PND, no orthopnea. RESPIRATORY: Cough and congestion, no hemoptysis. GI: No nausea, no vomiting. No abdominal pain. : No hematuria. No polyuria. MUSCULOSKELETAL: No joint swelling. PSYCHIATRIC: Not anxious. No depression. No suicidal thoughts. No homicidal thoughts. SKIN: Intact. No rash. PHYSICAL EXAMINATION: V/S: Blood pressure 167/77, respiratory rate 20, heart rate 83, temperature 98.4 with saturation 92%. HEENT: Normocephalic, atraumatic. Mucosa dry. Pallor positive. No icterus. NECK: Supple. No JVD, no carotid bruit. No lymphadenopathy. LUNGS: Bilateral entry is decreased and basilar crackles. No rales or rhonchi. HEART: S1, S2 normal. No S3. No murmur, gallop or regurgitation. ABDOMEN: Soft, nontender. Bowel sounds active. No rigidity. No rebound or guarding. No CVA tenderness. EXTREMITIES: No cyanosis, clubbing or pedal edema. MUSCULOSKELETAL: No joint swelling. NEUROLOGIC: Awake, alert, oriented times three. No focal deficit. LYMPHATIC: No lymph nodes palpable. SKIN: Intact. LABS: Sodium 139, potassium 4.9, chloride 105, bicarb 22, BUN 19, creatinine 0.92, glucose 356. WBC 10.64, hgb 11.2, hct 23.0, plt count 322. ASSESSMENT: 1. Severe Hypokalemia 2. Sepsis 3. Gastroenteritis 4. Dehydration 5. Bibasilar infiltrates 6. Hypertension 7. Atrial fibrillation 8. Diabetes Type 2 9. DJD spine 10.Diverticulitis 11.Hiatal hernia PLAN: 1. Continue fluids 2. Vasotec PRN 3. Zosyn 4. Vancomycin 5. Lovenox 6. DUO NEBS TIME SPENT: More than 35 minutes MTDD
--- NOTE | 2017-11-26 09:30 | PN ---
DATE OF SERVICE: 10/28/17 SUBJECTIVE: The patient was admitted with sepsis and gastroenteritis,dehydration and atrial fibrillation. We [facility] We will be trying to send the patient to [facility] today we will be working on that. This patient is better. Coughing and congestion has improved. Eating some better but needs a lot help to get up and ambulate and get out of the bed. REVIEW OF SYSTEMS: CONSTITUTIONAL: No fever, no chills. HEENT: Normal. ENDOCRINE: No weight gain, no weight loss. CVS: No angina symptoms. No CHF symptoms. No palpitations. No atypical chest pain for CAD. No shortness of breath. No PND, no orthopnea. RESPIRATORY: No cough, no hemoptysis. GI: No nausea, no vomiting. No abdominal pain. : No hematuria. No polyuria. MUSCULOSKELETAL: No joint swelling. PSYCHIATRIC: Not anxious. No depression. No suicidal thoughts. No homicidal thoughts. SKIN: Intact. No rash. PHYSICAL EXAMINATION: V/S: Blood pressure 103/54, respiratory rate 14, heart rate 69, temperature 98.4 with saturation 95%. GENERAL: Cachetic man laying in the bed not in any distress. HEENT: Normocephalic, atraumatic. Mucosa dry. Pallor positive. NECK: Supple. No JVD, no carotid bruit. No lymphadenopathy. LUNGS: Decreased and basilar crackles in the both lung bases. Clear to auscultation. No rales or rhonchi. HEART: S1, S2 normal. No S3. No murmur, gallop or regurgitation. ABDOMEN: Soft, nontender. Bowel sounds active. No rigidity. No rebound or guarding. No CVA tenderness. EXTREMITIES: No cyanosis, clubbing or pedal edema. MUSCULOSKELETAL: No joint swelling. NEUROLOGIC: Awake, alert, oriented times three. No focal deficit. LYMPHATIC: No lymph nodes palpable. SKIN: Intact. LABS: WBC 7.89, hgb 9.9, hct 30.6, plt count 209, sodium 140, potassium 4.0, Chloride 108, bicarb 22, BUN 36, creatinine 0.90 and glucose 189. ASSESSMENT: 1. Hypokalemia 2. Gastroenteritis 3. Dehydration 4. Failure to thrive 5. Bibasilar pneumonia 6. Atrial fibrillation 7. Diabetes 8. Chronic pain syndrome PLAN: 1. Continue the Insulin 2. Vancomycin 3. DUO NEBS 4. Lovenox TIME SPENT: More than 35 minutes MTDD
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
== END 2017-10-29 14:55 | DRG 871 ==
LOC: ED 15:53 → MEDSURG A 19:32 → SCU 10-24 23:00
PROVIDERS: ADMIT Emergency Medicine; ATTEND Emergency Medicine
DX: A41.9 Sepsis, unspecified organism (principal); I63.9 Cerebral infarction, unspecified; J18.8 Other pneumonia, unspecified organism; J98.11 Atelectasis; K21.9 Gastro-esophageal reflux disease without esophagitis; E86.0 Dehydration; R53.1 Weakness; R11.2 Nausea with vomiting, unspecified; R05 Cough; I10 Essential (primary) hypertension; F41.8 Other specified anxiety disorders; I69.919 Unspecified symptoms and signs involving cognitive functions following unspecified cerebrovascular disease; F01.50 Vascular dementia, unspecified severity, without behavioral disturbance, psychotic disturbance, mood disturbance, and anxiety; M19.90 Unspecified osteoarthritis, unspecified site; M54.9 Dorsalgia, unspecified; M25.50 Pain in unspecified joint; M54.2 Cervicalgia; I72.0 Aneurysm of carotid artery; Z87.891 Personal history of nicotine dependence; R00.0 Tachycardia, unspecified; K52.9 Noninfective gastroenteritis and colitis, unspecified; I48.91 Unspecified atrial fibrillation; Z79.01 Long term (current) use of anticoagulants; I25.10 Atherosclerotic heart disease of native coronary artery without angina pectoris; I13.10 Hypertensive heart and chronic kidney disease without heart failure, with stage 1 through stage 4 chronic kidney disease, or unspecified chronic kidney disease; N18.9 Chronic kidney disease, unspecified; E87.6 Hypokalemia; K57.90 Diverticulosis of intestine, part unspecified, without perforation or abscess without bleeding; K44.9 Diaphragmatic hernia without obstruction or gangrene; R73.9 Hyperglycemia, unspecified; E09.9 Drug or chemical induced diabetes mellitus without complications
CPT/HCPCS: 36415; 80053; 80202; 81001; 82550; 82553; 82803; 82962; 83605; 83735; 83880; 84132; 84145; 84439; 84443; 84484; 85025; 87040; 87081; 93005; 93010; 94640; 96365; 97802; 99285

== ENCOUNTER 2017-11-25 15:12 | Outpatient (CLI) | payer OTHER | END 2017-11-25 15:31 | disposition short-term general hospital (02) | LOC: AMBL 15:12 | PROVIDERS: ATTEND Emergency Medicine | DX: M25.559 Pain in unspecified hip (principal); W19.XXXD Unspecified fall, subsequent encounter ==

== ENCOUNTER 2018-04-27 15:13 | Inpatient (IN) | payer OTHER ==
[2018-04-24 05:51] VITALS: BMI 25.7
[2018-04-27] MEDS ORDERED: DULCOLAX RC PRN (15:22)
[2018-04-27] MEDS: DEXTROSE 5%-LR IV SOLUTION 1,000 ML IV SCH ×2 (16:16→21:58)
[2018-04-27] MEDS: VANCOMYCIN 1 GM in SODIUM CHLORIDE 250 ML IV SCH (17:48)
[2018-04-27] MEDS: ELIQUIS PO SCH (20:34)
[2018-04-27] MEDS: CATAPRES PO SCH (20:38)
[2018-04-27] MEDS: MORPHINE SULFATE TAB PO SCH (20:38)
[2018-04-27] MEDS: CALMOSEPTINE OINTMENT TP SCH (20:38)
[2018-04-27] MEDS: TAMIFLU PO SCH (20:38)
[2018-04-27] MEDS ORDERED: NON-FORMULARY MEDICATION (Clonidine Hcl [Catapres] 0.2 MG) PO SCH (21:00)
[2018-04-27] MEDS ORDERED: CLONIDINE HCL 0.1 MG PO SCH (21:00)
[2018-04-28] MEDS: MORPHINE SULFATE TAB PO SCH ×3 (04:20→20:26)
[2018-04-28] MEDS: VANCOMYCIN 1 GM in SODIUM CHLORIDE 250 ML IV SCH ×2 (05:38→17:31)
[2018-04-28] MEDS: PROTONIX PO SCH (05:40)
[2018-04-28] MEDS: DEMADEX PO SCH (05:40)
[2018-04-28] MEDS: CALMOSEPTINE OINTMENT TP SCH ×2 (08:33→20:37)
[2018-04-28] MEDS: ZYPREXA PO SCH (08:34)
[2018-04-28] MEDS: COLACE PO SCH (08:34)
[2018-04-28] MEDS: FERROUS SULFATE PO SCH (08:34)
[2018-04-28] MEDS: TAMIFLU PO SCH ×2 (08:34→20:26)
[2018-04-28] MEDS: CATAPRES PO SCH ×2 (08:35→20:27)
[2018-04-28] MEDS: ELIQUIS PO SCH ×2 (08:35→20:27)
[2018-04-28] MEDS: SENNA PO SCH (08:36)
[2018-04-28] MEDS: THIAMINE IM SCH (08:36)
[2018-04-28] MEDS: VITAMIN B-12 IM SCH (08:37)
[2018-04-28] MEDS ORDERED: K-DUR PO SCH (09:00)
[2018-04-28] MEDS ORDERED: NON-FORMULARY MEDICATION (Olanzapine [Zyprexa] 5 MG) PO SCH (09:00)
[2018-04-28] MEDS: ZOFRAN 4 MG/2 ML IVP PRN (10:58)
[2018-04-28] MEDS: DEXTROSE 5%-LR IV SOLUTION 1,000 ML IV SCH (12:09)
--- NOTE | 2018-04-28 12:53 | PCM ---
- Chief Complaint Chief Complaint: Fever unknown origin, flu like symptoms - History of Present Illness History of Present Illness: 72 yo WM resident of [facility] placed into [facility] 04/27/18 for fever unknown origin, flu like symptoms. He was admitted on 04/24/[address] Banks after presenting to [facility] 01:43. Fever for 24 hours not responsive to tylenol. [place] called sent to Er for further eval. Fever/feeling poorly x 24 hours Tmax 102, poor historian, resident of [place], lethargy refused medications. SIRS/SEPSIS met. Fever, malaise , decreased intake liquids/solids, anxiety, history of DM2, HTN, bradcyardia, left carotid aneurysm, GERD, CKD, Anxiety, CVA, depression, dementia, multi infarct, neuropathy, arthritis, back pain, joint pain chronically. Phys exam in ER showed ill appearing elderly male, tachycardic, breath sounds diminished, normal strength listed, anxious. Labs showed wbc 6.13, 10.1 hgb, plt 130, sodium 134.9, K+ 3.35, cr 0.93 and glucose 179.2. CXR no infiltrate COPD present. Contacted Dr. Jo echo ordered to r/o vegetation. Procalcitonin was 12.07, calcium 8.99, ast 83.9, protein 6.18, alb 3.41. Flu A/B were negative (SEROLOGY + for A and B ultimately). Lactate was elevated at 2.98, procalcitonin was elevated at 27.62 and UA was clear. He was given lovenox in ER despite being on eliquis regularly for anticoagulation. No issues occured. Calmosteptine was given for skin breakdown. During his stay he received zosyn 50mls/hr and invanz and vanco. Home meds reviewed for admit and throughout stay. Dr. Jo H+P reviewed by me. Agreeably, Dr. Jo preferred invanz/ vanco and patient was admitted to hospital w/ acute febrile illness, COPD, h/o pneumonia, DM, HTN, CAD, CHF. Bone scan incomplete due to movement 04/26/18. CT Chest w/ contrast completed mild COPD, mild LLL airway thickening suggestive of small airways infection/inflammation. CT brain age apporpriate atrophy with chronic microvascular disease. CT scan of abd/pelvis 04/25 Diverticulosis with increased attenuation in mesentery of sigmoid may represent diverticulitis. no perf, or fluid collection. Small fat containing inguinal hernia. Simple hepatic and renal cysts, ASVD, cholecystecomty. The patient continued abx throughout the stay and was transferred to SCU on 04/27/18. Procalcitonin steadily declined but was still elevated at 6.55. Patient still complains of abd pain. NO urinary symptoms, no abnl bowel movements, non surgical abdomen. he has chronic mood disorder on zyprexa. He has chronic COPD stable. Chronic DM stable. Admitted to SCU for completion of abx. He received 5 days of tamiflu. He is feeling better but was admitted to SCU to complete abx course. - Review of Systems Constitutional: fever (previously, now resolved up to 103. ), weakness, fatigue , loss of appetite, other (lethargy). No: chills, sweats Eyes: No: blurred vision, double-vision, discharge, itching, pain, redness, photophobia, other Ears: No: pain, bleeding, drainage, ringing, hearing loss, other Nose: congestion. No: bleeding, discharge, other Throat: No: pain, swelling, voice change, other Mouth: No: bleeding, pain, swelling, other Respiratory: cough. No: hemoptysis, pain with breathing Cardiovascular: No: chest pain, left arm pain, diaphoresis, PND, orthopnea, edema, palpitations, syncope, other Gastrointestinal: abdominal pain (lower abdomen), nausea, vomiting. No: hematemesis, hematochezia, dysphagia, constipation Genitourinary: frequency, incontinence Neurological: headache, dizziness, weakness Musculoskeletal: pain, other (myalgias.) Skin: No: rash, pruritus, lacerations, wounds, bruising, other Immunology: No: hives, itching, frequent infections, difficulty healing, other Hematology: easy bruising. No: easy bleeding, swollen glands, other Psychiatric: depression Habits: No: tobacco use, substance use, alcohol use, other - Past Medical History Past Medical History: 10 amits previously starting 11/15/14 weakness/abd pain, bradycardia, diverticulitis, change in mental status, dheydration, ARF, pneumonia (multiple) COPD exacerbation (multiple), chest pain, Gastroetneritis, weakness, dehydration, afib rvr, sepsis (multipl). HTN, DM, CVA. Weakness sherita RODGERS, DR. Cotto. Chronic anticoagulation, rate control. - Past Surgical History Past Surgical History: alberto, back surgery CEA - Allergies Allergies/Adverse Reactions: Allergies Allergy/AdvReac Type Severity Reaction Status Date / Time No Known Allergies Allergy Verified 04/24/18 01:50 - Medications Medications: Medications Generic Name Dose Route Start Last Admin Trade Name Freq PRN Reason Stop Dose Admin Apixaban 5 mg 04/27/18 21:00 04/28/18 08:35 Eliquis PO 5 mg BID SHAHID Administration Bisacodyl 10 mg 04/27/18 15:22 Dulcolax RC DAILY PRN Constipation Calamine/Phenol 1 applic 04/27/18 21:00 04/28/18 08:33 Calmoseptine Ointment TP 1 applic BID SHAHID Administration Clonidine 0.1 mg 04/27/18 21:00 04/28/18 08:35 Catapres PO 0.1 mg BID SHAHID Administration Cyanocobalamin 1,000 mcg 04/28/18 09:00 04/28/18 08:37 Vitamin B-12 IM 1,000 mcg DAILY SHAHID Administration Docusate Sodium 100 mg 04/28/18 09:00 04/28/18 08:34 Colace PO 100 mg DAILY SHAHID Administration Ferrous Sulfate 5 ml 04/28/18 09:00 04/28/18 08:34 Ferrous Sulfate PO 5 ml DAILY SHAHID Administration Dextrose/Lactated Ringer's 1,000 mls @ 83 mls/hr 04/27/18 15:30 04/28/18 12: 09 Dextrose 5%-Lr Iv Solution IV 83 mls/hr .Q12H3M SHAHID Administration Vancomycin HCl 1 gm/ Sodium 250 mls @ 125 mls/hr 04/27/18 18:00 04/28/18 05: 38 Chloride IV 125 mls/hr 0600,1800 SHAHID Administration Morphine Sulfate 15 mg 04/27/18 21:00 04/28/18 12:33 Morphine Sulfate Tab PO 15 mg Q8HR SHAHID Administration Olanzapine 5 mg 04/28/18 09:00 04/28/18 08:34 Zyprexa PO 5 mg DAILY SHAHID Administration Ondansetron HCl 4 mg 04/28/18 10:35 04/28/18 10:58 Zofran 4 Mg/2 Ml IVP 4 mg Q6H PRN Administration Nausea / Vomiting Oseltamivir Phosphate 75 mg 04/27/18 21:00 04/28/18 08:34 Tamiflu PO 04/28/18 21:01 75 mg Q12HR SHAHID Administration Pantoprazole Sodium 40 mg 04/28/18 06:30 04/28/18 05:40 Protonix PO 40 mg QDAC SHAHID Administration Potassium Chloride 20 meq 04/28/18 17:30 K-Dur PO BIDWM SHAHID Sennosides 17.2 mg 04/28/18 09:00 04/28/18 08:36 Senna PO 17.2 mg DAILY SHAHID Administration Sodium Chloride 1 syr 04/28/18 05:00 04/28/18 12:35 Saline Flush IVF 1 syr Q8HR SHAHID Administration Thiamine HCl 50 mg 04/28/18 09:00 04/28/18 08:36 Thiamine IM 50 mg DAILY SHAHID Administration Torsemide 20 mg 04/28/18 06:30 04/28/18 05:40 Demadex PO 20 mg QDAC SHAHID Administration - Family History Past Family History: Sister DM, substance abuse. Mother AIDS. Brother: Aids. Father AMI, cancer. 5 sisters/3 brothers. - Social History Past Social History: living at [facility] permanent resident. [place]. No family present this am. 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 Former smoker. Remote. No ETOH no drugs. - Vital Signs Temperature: 97.7 F Pulse Rate: 50 Respiratory Rate: 19 Blood Pressure: 152/60 O2 Sat by Pulse Oximetry: 97 - Body Composition Height: 5 ft 6 in Weight: 159 lb Body Mass Index (BMI): 25.7 - Physical Examination HEENT: Constitutional: Appearance-No acute distress, Consistent with stated age. Lying supine in bed, limited mobility. Knew my name, his name, day of week, month, year. Orientation- Appears to be Oriented x 3, alert Integumentary: General-No rashes, ulcers or lesions. Bilateral LE no edema. NO buttock wounds, no sacral wounds, Heels evaluated, skin of feet/legs look great. Abdomen/UE , face, neck, chest no rash. Skin intact. Head/Neck: Head- normocephalic and atraumatic. Neck- without visible/palpable lumps or pulsations. Palpation- No bony tenderness about head/neck along frontal, occipital, temporal, parietal, mastoid, jawline, zygoma, orbit or any other location. NO temporal artery tenderness. No TMJ tenderness. Neck Supple. Thyroid-No thyromegaly, no nodules Eye: Bilaterally PERRLA, EOMI. No discharge. Upper and lower eyelids are normal. Sclera/conjunctiva normal without discharge. Cornea is normal and clear. Lens is normal. Eyeball appears normal. No ciliary flushing, no conjunctival injection. ENMT: Nasal mucosa- No bleeding noted and no ulcerations observed. [place], moist. Turbinates non boggy. Lips- normal color, moist without cracks/lesions Oral Cavity/Palate- hard/soft palate intact without lesions, oral mucosa pink and moist. CHEST/LUNG: Inspection- symmetric chest wall no pectus deformity. Normal effort , no distress, no use of accessory muscles. Palpation- nontender sternum, ribline. No abnormal pulsations. Auscultation- Breath sounds decreased effort. Mildly coarse tracheal sounds, bronchial sounds overlying sternum, Bronchovessicular sounds between scapulae posteriorly, vessicular breath sounds heard throughout periphery. Lungs are mostly clear today, improved with cough suggestive of mucus plugging. . Adventitious sounds- No prominent wheezes, rales , rhonchi. Limited inspiration, shallow breathing. CARDIOVASCULAR: Auscultation- Bradycardic rate and rhythm. No murmur noted in supine positions. Extremities- no cyanosis, edema, increased warmth. No calf tenderness. ABDOMEN: Inspection- normal and no visible pulsations. Normal contour. Auscultation- Bowel sounds normal, no abdominal bruits. Palpation/Percussion- soft, tender suprapubic and along LLQ, no rebound tenderness, no rigidity ( guarding), no jar tenderness, no masses. neg rovsing, negative mcburney, negative lebron. Peripheral Vascular: Upper extremity Left- Normal temperature with pink nailbeds and no ulcerations. Upper extremity Right- Normal temperature with pink nailbeds and no ulcerations. Lower extremity- Normal temperature with pink nailbeds and no ulcerations. DP pulses 2+ bilaterally. Musculoskeletal: Generalized-No generalized swelling or edema of extremities, no cyanosis, neurovascularly intact all four extremities. He will move all extremities against gravity, 5/5 content editor, 5/5 dorsi and plantar flexion. Hip flexion 4+/5 symmetrial. Neurological: General- Moves all 4 extremities symmetrically. Symmetrical face and body posture. Cranial nerves- individually evaluated II-XII and intact. PERRLA, Normal EOMI, visual/special senses appear intact, Face is symmetrical and normal sensation/movement, normal tongue, normal strength/posture of neck musculature. Neuropsych: Oriented- Person, place, time. (AAOx3), Mood/affect- flat. Able to articulate. Speech-Normal speech, normal rate, normal tone, normal use of language, volume and coherence. Thought content- Appears normal Associations- Appears intact, no SI/HI, no hallucinations, delusions, obsessions. . Lymphatic: Head/Neck- normal size and non tender to palpation. Axillary- normal size and non tender to palpation. Femoral and Inguinal- normal size and non tender to palpation. - Lab/Tests/Diagnostic Imaging Lab/Tests/Diagnostic Imaging: Comprehensive Lab Summary 04/28/18 04/28/18 04/28/18 Range/Units 07:45 07:45 07:45 ESR 45 H (0-15) mm/hr Sodium 138.7 (137-145) mmol/L Potassium 3.20 L (3.5-5.1) mmol/L Chloride 101.6 (98-107) mmol/L Carbon Dioxide 32.0 H (22-30.0) mmol/L Anion Gap 8.30 BUN 16.6 (9-20) mg/dL Creatinine 0.72 (0.60-1.10) mg/dL Estimated GFR (MDRD) 107.00 mL/min BUN/Creatinine Ratio 23.05 Glucose 163.0 H (74-106) mg/dL Calcium 8.70 (8.4-10.2) mg/dL Phosphorus 3.04 (2.5-4.5) mg/dL Albumin 3.40 L (3.5-5.0) g/dL Procalcitonin 2.73 (<0.05) ng/mL Urine Color (YELLOW) Urine Clarity (CLEAR) Urine pH (5-9) Ur Specific [place] (1.005-1.030) Urine Protein (NEGATIVE) Urine Glucose (UA) (NEGATIVE) Urine Ketones (NEGATIVE) Urine Blood (NEGATIVE) Urine Nitrite (NEGATIVE) Urine Bilirubin (NEGATIVE) Urine Urobilinogen (0.2) Ur Leukocyte Esterase (NEGATIVE) Vancomycin Trough (10.00-20.00) ug/mL 04/29/18 04/29/18 04/30/18 Range/Units 00:30 06:15 07:15 ESR (0-15) mm/hr Sodium (137-145) mmol/L Potassium 3.37 L (3.5-5.1) mmol/L Chloride (98-107) mmol/L Carbon Dioxide (22-30.0) mmol/L Anion Gap BUN (9-20) mg/dL Creatinine (0.60-1.10) mg/dL Estimated GFR (MDRD) mL/min BUN/Creatinine Ratio Glucose (74-106) mg/dL Calcium (8.4-10.2) mg/dL Phosphorus (2.5-4.5) mg/dL Albumin (3.5-5.0) g/dL Procalcitonin (<0.05) ng/mL Urine Color Yellow (YELLOW) Urine Clarity Clear (CLEAR) Urine pH 6.5 (5-9) Ur Specific [place] 1.020 (1.005-1.030) Urine Protein Negative (NEGATIVE) Urine Glucose (UA) Negative (NEGATIVE) Urine Ketones Negative (NEGATIVE) Urine Blood Negative (NEGATIVE) Urine Nitrite Negative (NEGATIVE) Urine Bilirubin Negative (NEGATIVE) Urine Urobilinogen 0.2 (0.2) Ur Leukocyte Esterase Negative (NEGATIVE) Vancomycin Trough 20.094 H (10.00-20.00) ug/mL WBC Trend 9.70, 6.58, 7.31, 5.91. Hgb trend 8.7, 9.1, 10.3, 10.4 Plt 88, 101, 130, 129 Last CMP prior to SCU admit sodium 136.5, potassium 3.85, cl 100.1, co2 32.4, bun 23.1, cr 0.90, GFR 82, glu 216, ca 8.70, AST was elevated up to 83.4 but 56.4 at last check. ALT 65.7. Vanco trough 04/26 17.57. Please see HPI for summary of imaging during recent hospital stay. - Assessment (1) Abdominal pain Status: Acute Code(s): R10.9 - UNSPECIFIED ABDOMINAL PAIN SNOMED Code(s): 22369253 (2) Diverticulitis Status: Acute Code(s): K57.92 - DVTRCLI OF INTEST, PART UNSP, W/O PERF OR ABSCESS W/O BLEED SNOMED Code(s): 875730400 (3) Influenza Status: Acute Code(s): J11.1 - FLU DUE TO UNIDENTIFIED INFLUENZA VIRUS W OTH RESP MANIFEST SNOMED Code(s): 2191582 (4) Low vitamin D level Status: Acute Code(s): R79.89 - OTHER SPECIFIED ABNORMAL FINDINGS OF BLOOD CHEMISTRY SNOMED Code(s): 793319140 (5) Nausea Status: Acute Code(s): R11.0 - NAUSEA SNOMED Code(s): 209876776 (6) alf resident Status: Acute Code(s): Z59.3 - PROBLEMS RELATED TO LIVING IN RESIDENTIAL INSTITUTION SNOMED Code(s): 610112040 (7) Sepsis Status: Acute Code(s): A41.9 - SEPSIS, UNSPECIFIED ORGANISM SNOMED Code(s): 07922081 Qualifiers: Sepsis type: sepsis due to unspecified organism Qualified Code(s): A41.9 - Sepsis, unspecified organism (8) Bradycardia Status: Chronic Code(s): R00.1 - BRADYCARDIA, UNSPECIFIED SNOMED Code(s): 87794367 (9) Diabetes 1.5, managed as type 2 Status: Chronic Code(s): E13.9 - OTHER SPECIFIED DIABETES MELLITUS WITHOUT COMPLICATIONS SNOMED Code(s): 473144877 - Plan Plan: Abdominal pain, history of fever: So far fever unknown source, suspected viral. Reviewed imaging, and we discussed the findings. Reviewed I+O from hospital stay. We reviewed imaging, discussed CT abd/pelvis 04/27/18 suggesting Diverticulosis w/ possibility of diverticulitis. he has not had abx to cover for this process. We will consider starting this in next few days if unchanged/ worse. 3 BM documented 04/25, 04/26, 04/29. We will continue to monitor. Uout has been good. I will check UA to make sure abd pain is not from bladder. Vitals from hospital stay reviewed. Afebrile since 04/25 at 18:00. Procalcitonin trended down and much better, but still elevated at 6.55. Check again tomorrow. Stop if <3.0. Tolerating PO. Currently DNR, not wanting to but also not wanting any new processes, interventions. - Consider Cipro 500 BID/Flagyl 500 Q8 H if pain persists, does not improve. - Tele - SCU admit for IV abx Influenza A and B: Still waiting for serology flu A/B. completed 5 days of tamiflu. Nausea: IV zofran. DVT Prophy: Eliquis to continue. Bradycardia: So far asymptomatic. Discussed pacemaker, not interested in referral. Not interested in procedure. Diet: ADA 1800 kcal/day. Activity: Up with assist. COde Status: DNR Dispo: Reviewed case with Dr Jo yesterday. He wanted patient in SCU for a few days to complete IV abx. We are still awaiting the flu serology. Complete vanco course and plan to d/c 05/01/18. Continue to monitor I+O, weight, CMP/ CBC but every few days. Monitor electrolytes, trough for vanco. Would like to continue therapy while in SCU. Monitor abdominal pain and consider cipro/ flagyl. Await UA C+S if indicated. Risks/benefits/alternatives to abx d/w patient. Bradycardia not interested in pacer. Not interested in referral. He has no SI. Fever free since 04/25/18. H+P review of admit, review of imaging/ labs. 45 minutes, not including the documentation. Reviewed tele, last labs, discussed imaging with patient. Will see patient in 48 hours.
[2018-04-28] MEDS: K-DUR PO SCH (17:31)
[2018-04-29] MEDS: DEXTROSE 5%-LR IV SOLUTION 1,000 ML IV SCH ×3 (00:57→15:34)
[2018-04-29] MEDS: ZOFRAN 4 MG/2 ML IVP PRN (05:23)
[2018-04-29] MEDS: VANCOMYCIN 1 GM in SODIUM CHLORIDE 250 ML IV SCH (05:37)
[2018-04-29] MEDS: MORPHINE SULFATE TAB PO SCH ×3 (05:38→21:17)
[2018-04-29] MEDS: DEMADEX PO SCH (05:38)
[2018-04-29] MEDS: PROTONIX PO SCH (05:38)
[2018-04-29] MEDS: FERROUS SULFATE PO SCH (08:48)
[2018-04-29] MEDS: VITAMIN B-12 IM SCH (08:48)
[2018-04-29] MEDS: THIAMINE IM SCH (08:48)
[2018-04-29] MEDS: COLACE PO SCH (08:51)
[2018-04-29] MEDS: ZYPREXA PO SCH (08:51)
[2018-04-29] MEDS: K-DUR PO SCH ×2 (08:51→17:08)
[2018-04-29] MEDS: SENNA PO SCH (08:51)
[2018-04-29] MEDS: CALMOSEPTINE OINTMENT TP SCH ×2 (08:51→21:23)
[2018-04-29] MEDS: ELIQUIS PO SCH ×2 (08:52→21:17)
[2018-04-29] MEDS: CATAPRES PO SCH ×2 (08:52→21:16)
[2018-04-29] MEDS: VANCOMYCIN 500 MG in SODIUM CHLORIDE 100 ML IV SCH ×2 (12:39→22:16)
[2018-04-29] MEDS: ZOFRAN ODT PO PRN (21:17)
[2018-04-30] MEDS: DEXTROSE 5%-LR IV SOLUTION 1,000 ML IV SCH ×2 (05:35→16:33)
[2018-04-30] MEDS: MORPHINE SULFATE TAB PO SCH ×3 (05:54→20:11)
[2018-04-30] MEDS: PROTONIX PO SCH (05:55)
[2018-04-30] MEDS: DEMADEX PO SCH (05:55)
[2018-04-30] MEDS ORDERED: ZOFRAN ODT ONE (06:17)
[2018-04-30] MEDS: ZOFRAN ODT PO PRN (06:20)
--- NOTE | 2018-04-30 06:52 | PCM.PROG ---
Subjective: 72 yo WM currently in Swing bed SCU-1 with fever unknown origin, abdominal pain , resident of [facility]. NO family present. I received call last night that patient IV infiltrated, they tried several times to reinsert the IV and patient was unable to tolerate further attempts. He refused the care and told nursing no further attempts. I d/c the vanco, I d/c the IV zofran. He continues to have nausea and suprapubic/LLQ abdominal pain. UA w/ C+S was normal and thus not sent for evaluation. His vitals have looked ok. HR is markedly low at times ranging from 43-60. I talked about considering referal for pacemaker, He does not want that. He is aware of his decision and notes He does not want foreign object, does not want resuscitative measures. He is asymptomatic. 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 His biggest complaint is the abd pain and nausea and decreased appetite. We talked about cipro/flagyl, he would like to try that today and consider going back to [facility] tomorrow. He was aware of day/date/time/location today. NO family was in room today. Talked with ON nurse, reviewed the last 24 hours information about patient, reviewed telemetry and reviewed most recent labs. K+ was a little low yesterday and Dr. Stern (Cardiology consult) saw him and recommended increased K +. I agree. He is now at 20meq BID. I will repeat K+ this am. Patient was agreeable to trying abx and then consider d/c tomorrow. He is stable otherwise and ready to return to [facility]> He is not using phys therapy as he has refused it. He will stand and will get to bedside commode. I helped in room this am for him to urinate, 300 ml out per urinal. Last 8 hours 0.95 ml/kg/hour output. BP has been up and down last 3 readings of 172/62, 99/46 and 152/63. He does nto want to address this either. BG have been up and down. Chronic anticoag with eliquis. Chronic psych history on zyprexa. Stable. Vanco trough was on high end yesterday. This was d/c by me after IV infiltrated. REVIEW OF SYMPTOMS: (Positives bolded) General: weight loss, fever, chills, night sweats, fatigue, appetite loss HEENT: blurry vision, eye pain, eye discharge, dry eyes, decreased vision, sore throat tinnitus, bloody nose, hearing loss, sinus pain/pressure, ear pain/ pressure. Respiratory: shortness of breath (chronic, stable), cough, hemoptysis, wheezing , pleurisy, Cardiovascular: chest pain, PND, palpitation, edema, orthopnea, syncope, swelling of extremities Bradycardia Gastro: Nausea, vomiting, diarrhea, hematemesis, abdominal pain LLQ, constipation Genito: hematuria, dysuria, glycosuria, hesitancy, frequency, incontinence [place]elo: Arthralgia, myalgia, muscle weakness, joint swelling, NSAID use Skin: rash, pruritis, sores, nail changes, skin thickening, change in wart/mole , itching, rash, new lesions, Neuro: Migraine, numbness, ataxia, tremor, vertigo, weakness, memory loss, Irritability, dizziness Endocrine: excessive thirst, polyuria, cold intolerance, heat intolerance, goiter Psychiatric: depression, anxiety, alcohol abuse, drug abuse, insomnia, change in sleep pattern and mood changes Heme/lymph: easy bruising, bleeding gums, blood clots, swollen glands, lymphedema, Allergic/immune: allergic rhinitis, hay fever, asthma, hives Objective: Vital Signs - 24 hr 04/29/18 04/29/18 04/30/18 08:00 17:51 05:58 Temperature 98.9 F 98.3 F Pulse Rate 67 47 L Pulse Rate [ 50 L Apical] Respiratory 18 18 Rate Blood Pressure 99/46 L 152/63 H O2 Sat by Pulse 96 96 Oximetry Constitutional: Appearance-No acute distress, Consistent with stated age. Lying supine in bed, facial hair growing. He was aware of day of week, month, year. Knew name, knew my name. Orientation- Appears to be Oriented x 3, alert Integumentary: General-No rashes, ulcers or lesions. Bilateral LE no edema. Heels evaluated, skin of feet/legs look great. Abdomen/UE , face, neck, chest no rash. Head/Neck: Head- normocephalic and atraumatic. Neck- without visible/palpable lumps or pulsations. Palpation- No bony tenderness about head/neck along frontal, occipital, temporal, parietal, mastoid, jawline, zygoma, orbit or any other location. NO temporal artery tenderness. No TMJ tenderness. Neck Supple. Thyroid-No thyromegaly, no nodules Eye: Bilaterally PERRLA, EOMI. No discharge. Upper and lower eyelids are normal. Sclera/conjunctiva normal without discharge. Cornea is normal and clear. Lens is normal. Eyeball appears normal. No ciliary flushing, no conjunctival injection. ENMT: Nasal mucosa- No bleeding noted and no ulcerations observed. [place], moist. Turbinates non boggy. Lips- normal color, moist without cracks/lesions Oral Cavity/Palate- hard/soft palate intact without lesions, oral mucosa pink and moist. CHEST/LUNG: Inspection- symmetric chest wall no pectus deformity. Normal effort , no distress, no use of accessory muscles. Palpation- nontender sternum, ribline. No abnormal pulsations. Auscultation- Breath sounds decreased effort. Mildly coarse tracheal sounds, bronchial sounds overlying sternum, Bronchovessicular sounds between scapulae posteriorly, vessicular breath sounds heard throughout periphery. Lungs are mostly clear today, improved wiht cough suggestive of mucus plugging. . Adventitious sounds- No prominent wheezes, rales , rhonchi. CARDIOVASCULAR: Auscultation- Bradycardic rate and rhythm. No murmur noted in sitting, supine positions. Extremities- no cyanosis, edema, increased warmth. No calf tenderness. ABDOMEN: Inspection- normal and no visible pulsations. Normal contour. Auscultation- Bowel sounds normal, no abdominal bruits. Palpation/Percussion- soft, tender suprapubic and along LLQ, no rebound tenderness, no rigidity ( guarding), no jar tenderness, no masses. neg rovsing, negative mcb[place]ney, negative [place]. Peripheral Vascular: Upper extremity Left- Normal temperature with pink nailbeds and no ulcerations. Upper extremity Right- Normal temperature with pink nailbeds and no ulcerations. Lower extremity- Normal temperature with pink nailbeds and no ulcerations. DP pulses 2+ bilaterally. Musculoskeletal: Generalized-No generalized swelling or edema of extremities, no cyanosis, neurovascularly intact all four extremities. 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 Hip flexion 4+/5 symmetrial. Neurological: General- Moves all 4 extremities symmetrically. Symmetrical face and body posture. Cranial nerves- individually evaluated II-XII and intact. PERRLA, Normal EOMI, visual/special senses appear intact, Face is symmetrical and normal sensation/movement, normal tongue, normal strength/posture of neck musculature. Neuropsych: Oriented- Person, place, time. (AAOx3), Mood/affect- flat. Able to articulate. Speech-Normal speech, normal rate, normal tone, normal use of language, volume and coherence. Thought content- Appears normal Associations- Appears intact, no SI/HI, no hallucinations, delusions, obsessions. . Lymphatic: Head/Neck- normal size and non tender to palpation. Axillary- normal size and non tender to palpation. Femoral and Inguinal- normal size and non tender to palpation. Laboratory Last Values ESR 45 mm/hr (0-15) H 04/28/18 07:45 Sodium 138.7 mmol/L (137-145) 04/28/18 07:45 Potassium 3.20 mmol/L (3.5-5.1) L 04/28/18 07:45 Chloride 101.6 mmol/L (98-107) 04/28/18 07:45 Carbon Dioxide 32.0 mmol/L (22-30.0) H 04/28/18 07:45 Anion Gap 8.30 04/28/18 07:45 BUN 16.6 mg/dL (9-20) 04/28/18 07:45 Creatinine 0.72 mg/dL (0.60-1.10) 04/28/18 07:45 Estimated GFR (MDRD) 107.00 mL/min 04/28/18 07:45 BUN/Creatinine Ratio 23.05 04/28/18 07:45 Glucose 163.0 mg/dL (74-106) H 04/28/18 07:45 Calcium 8.70 mg/dL (8.4-10.2) 04/28/18 07:45 Phosphorus 3.04 mg/dL (2.5-4.5) 04/28/18 07:45 Albumin 3.40 g/dL (3.5-5.0) L 04/28/18 07:45 Procalcitonin 2.73 ng/mL (<0.05) 04/28/18 07:45 Urine Color Yellow (YELLOW) 04/29/18 00:30 Urine Clarity Clear (CLEAR) 04/29/18 00:30 Urine pH 6.5 (5-9) 04/29/18 00:30 Ur Specific [place] 1.020 (1.005-1.030) 04/29/18 00:30 Urine Protein Negative (NEGATIVE) 04/29/18 00:30 Urine Glucose (UA) Negative (NEGATIVE) 04/29/18 00:30 Urine Ketones Negative (NEGATIVE) 04/29/18 00:30 Urine Blood Negative (NEGATIVE) 04/29/18 00:30 Urine Nitrite Negative (NEGATIVE) 04/29/18 00:30 Urine Bilirubin Negative (NEGATIVE) 04/29/18 00:30 Urine Urobilinogen 0.2 (0.2) 04/29/18 00:30 Ur Leukocyte Esterase Negative (NEGATIVE) 04/29/18 00:30 Vancomycin Trough 20.094 ug/mL (10.00-20.00) H 04/29/18 06:15 (1) Influenza Status: Acute Code(s): J11.1 - FLU DUE TO UNIDENTIFIED INFLUENZA VIRUS W OTH RESP MANIFEST SNOMED Code(s): 5269969 (2) Abdominal pain Status: Acute Code(s): R10.9 - UNSPECIFIED ABDOMINAL PAIN SNOMED Code(s): 39827887 (3) Nausea Status: Acute Code(s): R11.0 - NAUSEA SNOMED Code(s): 107286937 (4) Bradycardia Status: Acute Code(s): R00.1 - BRADYCARDIA, UNSPECIFIED SNOMED Code(s): 71339721 (5) Diabetes 1.5, managed as type 2 Status: Inactive Code(s): E13.9 - OTHER SPECIFIED DIABETES MELLITUS WITHOUT COMPLICATIONS SNOMED Code(s): 945988196 Plan: Abdominal pain, history of fever: Patient had CT completed on 04/27/18 suggesting "Diverticulosis w/ increased attenuation in mesentery of sigmoid colon, findings may represent diverticulitis. No visible perforation or fluid collection was observed, small right inguinal hernia, fat filled, simple hepatic and renal cysts ASVD, s/p alberto" He has not been on diverticulitis treatment. He has had 3 BM documented 04/25, 04/26, 04/29. We will continue to monitor. Uout is good. Vitals have been okay with some BP changes up and down. Afebrile since 04/25 at 18:00 (now 04/30). Procalcitonin was markedly eleavetd at 27.62 04/25, trende ddown 21.11, 13.72, 6.55, 2.73 with last check. I stopped checking it. Lacate was 1.19 on 04/27/18. He currently is tolerating PO, but decreased interest in foods. He is aware of issues with not eating/drinking. He is DNR and is capable of making own decisions at least in last 24 hours per nursing and my discussion with patient this am. We talked about cipro/flagyl, talked about tx of the abdominal finding. He would like to try that as his abd does hurt. Does not appear to be urinary source. Uout while I was in room holding urinal, no odor, no blood, normal color/ consistency. Diverticular process may have been cause of symptoms initially. - Cipro 500 BID - Flagyl 500 Q8 H - Tele - Reassess in 24 hours. Influenza A and B: The serology returned and appeared to be positive for flu. He appeared to have received 4-5 days of tamiflu while in hospital. Serology showed + to A and B. This testing is useful for retroactive dx. He completed round of tamiflu, no further w/u needed. Hypokalemia: Increased to 20meq BID yesterday. Repeat K+ this am. 3.2 . I will repeat K+ today. - Potassium this am. Nausea: IV changed to PO ODT zofran. - Zofran ODT 4mg PO q 8 hours pRN. DVT Prophy: Eliquis to continue. Bradycardia: So far asymptomatic. He has refused pacemaker, has refused discussing the topic. He seems able to make own decisions, this is reasonable. Diet: ADA 1800 kcal/day. Activity: Up with assist. COde Status: DNR Dispo: Offered patient d/c today with oral abx. He has refused phys therapy. I discussed he needed to use services. I will attempt to improve abdominal pain with the cipro/flagyl. R/B/A to abx d/w patient. He is not suicidal, not wanting to but not avoiding it either. He has history of psych illness, may benefit from counselor. If still here wednesday consider new beginings. If not , consider psych eval at [facility]. Imaging of abdomen did not show pneumonia, flu testing (although not the greatest test) was negative initially and then serology 1:128 for A and 1:8 for B. He was on tamiflu. Blood cultures to date negative. He completed multiple days of vanco, no obvious aspiration, he has been stable fever free since 04/25/18. I believe he can likely be d/c tomorrow. He agreed. Talked with nursing about the above. I appreciate the assistance of nursing team and Dr. Stern in the care of our patient. Rounding today 35 minutes. not including the documentation. Reviewed tele, last labs, discussed previous CT of head/chest/abd/pelvis. Discussed previous labs, reviewed labs from hospital stay with him this am. Discussed code status and we discussed bradycardia.
[2018-04-30] MEDS: COLACE PO SCH (08:26)
[2018-04-30] MEDS: ZYPREXA PO SCH (08:26)
[2018-04-30] MEDS: CATAPRES PO SCH ×2 (08:27→20:21)
[2018-04-30] MEDS: K-DUR PO SCH ×2 (08:27→16:36)
[2018-04-30] MEDS: SENNA PO SCH (08:27)
[2018-04-30] MEDS: FERROUS SULFATE PO SCH (08:28)
[2018-04-30] MEDS: THIAMINE IM SCH (08:30)
[2018-04-30] MEDS: VITAMIN B-12 IM SCH (08:33)
[2018-04-30] MEDS: ELIQUIS PO SCH ×2 (08:37→20:13)
[2018-04-30] MEDS ORDERED: FLAGYL ONE (08:47)
[2018-04-30] MEDS ORDERED: CIPRO ONE (08:47)
[2018-04-30] MEDS: CALMOSEPTINE OINTMENT TP SCH ×2 (08:50→20:18)
[2018-04-30] MEDS: CIPRO PO SCH ×2 (08:51→20:12)
[2018-04-30] MEDS: FLAGYL PO SCH ×3 (08:51→20:12)
[2018-05-01] MEDS: MORPHINE SULFATE TAB PO SCH (04:23)
[2018-05-01] MEDS: FLAGYL PO SCH (04:23)
[2018-05-01] MEDS: CIPRO PO SCH (05:44)
[2018-05-01] MEDS: PROTONIX PO SCH (05:44)
[2018-05-01] MEDS: DEMADEX PO SCH (05:46)
[2018-05-01] MEDS: FERROUS SULFATE PO SCH (08:26)
[2018-05-01] MEDS: ZYPREXA PO SCH (08:26)
[2018-05-01] MEDS: CATAPRES PO SCH (08:26)
[2018-05-01] MEDS: CALMOSEPTINE OINTMENT TP SCH (08:26)
[2018-05-01] MEDS: ELIQUIS PO SCH (08:27)
[2018-05-01] MEDS: VITAMIN B-12 IM SCH (08:27)
[2018-05-01] MEDS: COLACE PO SCH (08:27)
[2018-05-01] MEDS: SENNA PO SCH (08:27)
[2018-05-01] MEDS: K-DUR PO SCH (08:27)
[2018-05-01] MEDS: THIAMINE IM SCH (08:28)
--- NOTE | 2018-05-01 08:35 | PCM.DC ---
Final Diagnosis: Abdominal pain (Acute)/Diverticulitis (Acute) Bradycardia (Chronic) Hypokalemia (Acute) Influenza (Resolved) Low vitamin D level (Chronic) Nausea (Chronic) [facility] resident (Chronic) Sepsis (Resolved) Diabetes 1.5 (Chronic) A1C within last 30 days <8.0%, reasonable based on age/ problems. (1) Influenza Status: Acute Code(s): J11.1 - FLU DUE TO UNIDENTIFIED INFLUENZA VIRUS W OTH RESP MANIFEST SNOMED Code(s): 0710516 (2) Abdominal pain Status: Acute Code(s): R10.9 - UNSPECIFIED ABDOMINAL PAIN SNOMED Code(s): 94901262 (3) Nausea Status: Acute Code(s): R11.0 - NAUSEA SNOMED Code(s): 660757430 (4) Bradycardia Status: Chronic Code(s): R00.1 - BRADYCARDIA, UNSPECIFIED SNOMED Code(s): 16180366 (5) Diabetes 1.5, managed as type 2 Status: Chronic Code(s): E13.9 - OTHER SPECIFIED DIABETES MELLITUS WITHOUT COMPLICATIONS SNOMED Code(s): 024239869 (6) Diverticulitis Status: Acute Code(s): K57.92 - DVTRCLI OF INTEST, PART UNSP, W/O PERF OR ABSCESS W/O BLEED SNOMED Code(s): 446813340 (7) Hypokalemia Status: Acute Code(s): E87.6 - HYPOKALEMIA SNOMED Code(s): 63583500 (8) Low vitamin D level Status: Acute Code(s): R79.89 - OTHER SPECIFIED ABNORMAL FINDINGS OF BLOOD CHEMISTRY SNOMED Code(s): 273546800 (9) [facility] resident Status: Acute Code(s): Z59.3 - PROBLEMS RELATED TO LIVING IN RESIDENTIAL INSTITUTION SNOMED Code(s): 557287880 Reason for Hospitalization: Initially was flu like symptoms, SIRS, elevated procalcitonin, URI symptoms. Molecular flu negative, imaging of chest/abdomen/head completed and reviewed. ? Diverticular process, Fever unknown origin. Abx initiated, cultured collected and negative. He was placed into swing bed 04/28/18 and plan was for d/c if he continued to improve. 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 He is stabilizing/improving and now ready for return to [facility]. Finish abx. Condition at Discharge: 1. Stable to improved, pain better, mood stable, vitals stable. He wants to go back, feels stronger. Medications at Discharge: Ambulatory Orders Medication Instructions Recorded Apixaban [Eliquis] 5 mg PO BID 02/22/18 Bisacodyl [Dulcolax] 10 mg RC DAILY PRN 02/22/18 Clonidine HCl [Catapres] 0.2 mg PO BID 02/22/18 Docusate Sodium [Colace] 100 mg PO DAILY 02/22/18 Magnesium Hydroxide [Milk of 30 ml PO ONCE PRN 02/22/18 Magnesia] Menthol/Zinc Oxide [Calmoseptine 1 applic TP BID 02/22/18 Ointment] Morphine Sulfate 15 mg PO Q8H 02/22/18 Olanzapine [Zyprexa] 5 mg PO DAILY 02/22/18 Pantoprazole Sodium [Protonix] 40 mg PO QDAC 02/22/18 Sennosides [Senna] 17.2 mg PO DAILY 02/22/18 Torsemide [Demadex] 20 mg PO QDAC #30 tablet 02/28/18 Ciprofloxacin HCl [Cipro] 500 mg PO BIDCIPRO 6 Days #12 05/01/18 tablet Cyanocobalamin (Vitamin B-12) 1,000 mcg IM DAILY vial 05/01/18 [Vitamin B-12] Ferrous Sulfate Solution [Ferrous 5 ml PO DAILY disp.syrin 05/01/18 Sulfate] Metronidazole [Flagyl] 500 mg PO Q8HR 6 Days #18 tablet 05/01/18 Ondansetron [Zofran Odt] 4 mg PO Q8H PRN 10 Days #60 05/01/18 tab.rapdis Potassium Chloride [K-Dur] 20 meq PO BID 30 Days #60 tab 05/01/18 Lab/Diagnostics: Laboratory Last Values ESR 45 mm/hr (0-15) H 04/28/18 07:45 Sodium 138.7 mmol/L (137-145) 04/28/18 07:45 Potassium 3.37 mmol/L (3.5-5.1) L 04/30/18 07:15 Chloride 101.6 mmol/L (98-107) 04/28/18 07:45 Carbon Dioxide 32.0 mmol/L (22-30.0) H 04/28/18 07:45 Anion Gap 8.30 04/28/18 07:45 BUN 16.6 mg/dL (9-20) 04/28/18 07:45 Creatinine 0.72 mg/dL (0.60-1.10) 04/28/18 07:45 Estimated GFR (MDRD) 107.00 mL/min 04/28/18 07:45 BUN/Creatinine Ratio 23.05 04/28/18 07:45 Glucose 163.0 mg/dL (74-106) H 04/28/18 07:45 Calcium 8.70 mg/dL (8.4-10.2) 04/28/18 07:45 Phosphorus 3.04 mg/dL (2.5-4.5) 04/28/18 07:45 Albumin 3.40 g/dL (3.5-5.0) L 04/28/18 07:45 Procalcitonin 2.73 ng/mL (<0.05) 04/28/18 07:45 Urine Color Yellow (YELLOW) 04/29/18 00:30 Urine Clarity Clear (CLEAR) 04/29/18 00:30 Urine pH 6.5 (5-9) 04/29/18 00:30 Ur Specific [place] 1.020 (1.005-1.030) 04/29/18 00:30 Urine Protein Negative (NEGATIVE) 04/29/18 00:30 Urine Glucose (UA) Negative (NEGATIVE) 04/29/18 00:30 Urine Ketones Negative (NEGATIVE) 04/29/18 00:30 Urine Blood Negative (NEGATIVE) 04/29/18 00:30 Urine Nitrite Negative (NEGATIVE) 04/29/18 00:30 Urine Bilirubin Negative (NEGATIVE) 04/29/18 00:30 Urine Urobilinogen 0.2 (0.2) 04/29/18 00:30 Ur Leukocyte Esterase Negative (NEGATIVE) 04/29/18 00:30 Vancomycin Trough 20.094 ug/mL (10.00-20.00) H 04/29/18 06:15 Please see d/c from hospital for hospital based labs. These are for his d/c from swing. No additional imaging was completed. Follow-ups: 1. Dr. Jo in 1 week. Disposition: TSF OTHER Hospital Course: 72 yo WM resident of [facility] placed into SWING 04/27/18 for fever unknown origin, flu like symptoms. He was initially dmitted on 04/24/[address] Banks after presenting to [facility] 01:43. Fever/feeling poorly x 24 hours Tmax 102, poor historian, resident of [place]. SIRS/SEPSIS met. Fever, malaise, decreased intake liquids/solids, anxiety, history of DM2, HTN, bradcyardia, left carotid aneurysm , GERD, CKD, Anxiety, CVA, depression, dementia, multi infarct, neuropathy, arthritis, back pain, joint pain chronically. Phys exam in ER showed ill appearing elderly male, tachycardic, breath sounds diminished, normal strength listed, anxious. Labs showed wbc 6.13, 10.1 hgb, plt 130, sodium 134.9, K+ 3.35 , cr 0.93 and glucose 179.2. CXR no infiltrate COPD present. Contacted Dr. Jo echo ordered to r/o vegetation. Procalcitonin was 12.07, calcium 8.99, ast 83.9, protein 6.18, alb 3.4. He was placed into swing bed on 04/28/18 and we monitored his procalcitonin decline to the low recording of 2.73. He continued to have nausea and suprapubic/LLQ abdominal pain. UA ordered w/ C+S was normal. His vitals have looked ok. HR is markedly low at times ranging from 43-60. I talked about considering referral for pacemaker, He was not interested. NO family was in room today. Talked with ON nurse, reviewed the telemetry and reviewed most recent labs. K+ was a little low yesterday but improved after changing to BID dosing of 20meq K+Cl-. Refusing phys therapy. He will stand and will get to bedside commode. Chronic anticoag with eliquis. Chronic psych history on zyprexa. Stable. He was placed onto vancomycin until PM when his IV infiltrated. Cancelled by me yesterday as patient refused to have further attempts at starting IV. I re-reviewed imaging, urine was clear, he still had pain in his suprapubic region. We discussed options and felt it was a reasonable idea to treat for diverticulitis. I added cipro/ flagyl yesterday, he will complete 7 day course. Flu serology returned +, he had completed 5 day course of tamiflu in hospital. Patient is now stable, ready to return to [facility]. Low K+ noted by Dr. Stern and patient potassium was increased to BID. I have written an order for [facility] 05/09/18 to evaluate this process. Chronic DM, A1C< 8 and reasonable. BP stable, mood stable. He has refused therapy and I feel he no longer needs swing bed status. He wants to return to [facility], i+O stable, vitals stable, patient has improved quite a bit. - D/C to [facility] today. - Dr. Jo to follow once he returns to [place]. - Med Rec completed - Activity as tolerated - Diet ADA 1800 kcal diabetic Plan: 1. Complete 6 days of cipro 500 BID and flagyl 500 Q8 hours for ?Diverticular process 2. Low K+ in hospital would like [facility] 05/09/18. 3. Return to [facility] Dr. Jo to see 4. Resume home medications. 5. Up ad liam. 6. Encourage activities regularly while at [facility] >30 minutes spent on d/c this am.
[2018-05-01 14:53] VITALS: BP 152/60; TEMP 97.7
--- NOTE | 2018-05-02 10:08 | CONS ---
DATE OF SERVICE: 04/28/18 CONSULT FOLLOWUP SUBJECTIVE: 72 year old white male hospitalized with sepsis. The patient was seen on consultation because of jaciel arrhythmias. The patient does not have any pause of more than 2 seconds.His heart rate from 45-60 supports his systolic blood pressure of more than 130. The patient has history of jaciel arrhythmias in the past and was evaluated. His Metoprolol has been discontinued. REVIEW OF SYSTEMS: CONSTITUTIONAL: No night sweats. No fatigue, malaise, lethargy. No fever or chills. HEENT: Eyes: No visual changes. No eye pain. No eye discharge. ENT: No runny nose. No epistaxis. No sinus pain. No sore throat. No odynophagia. No ear pain. No congestion. RESPIRATORY: No cough, no congestion. No hemoptysis. CARDIOVASCULAR: No angina symptoms. No CHF symptoms. No atypical chest pain for CAD. No palpitations. No shortness of breath. GASTROINTESTINAL: No abdominal pain. No nausea or vomiting. No diarrhea or constipation. No hematemesis. No hematochezia. GENITOURINARY: No urgency. No frequency. No dysuria. No hematuria. No obstructive symptoms. No discharge. No pain. No significant abnormal bleeding. MUSCULOSKELETAL: No musculoskeletal pain. No joint swelling. No arthritis. NEUROLOGICAL: No headache. No neck pain. No syncope. No seizures. No dizziness. PSYCHIATRIC: Not anxious. No depression. No suicidal thoughts. No homicidal thoughts. SKIN: No rash. No lesions. No wounds. ENDOCRINE: No unexplained weight loss. No weight gain. HEMATOLOGIC/LYMPHATIC: No anemia. No purpura. No petechiae. No prolonged or excessive bleeding. No palpable lymph nodes. PHYSICAL EXAMINATION: GENERAL: The patient seems to be oriented to person. VITAL SIGNS: Temperature 99, pulse 44, respiratory 14, blood pressure 170/60 and pulse ox 98%. HEENT: Head normocephalic, atraumatic. Eyes: Extraocular muscles are intact. Pupils are equal, round and reactive to light and accommodation. Ears: No lesions. Nose appeared normal. Throat: No exudate or erythema. NECK: Supple. No JVD, no carotid bruit. No lymphadenopathy or thyromegaly. LUNGS: Decreased breath sounds but clear to auscultation. Percussion note normal. Chest symmetrical. HEART: S1, S2, no S3. No murmurs. No cyanosis or clubbing. No ascites. Pulses: Dorsalis pedis and posterior tibial pulses +1 to +2 both sides. ABDOMEN: Soft. Nontender. Bowel sounds active. No CVA tenderness. No mass felt. EXTREMITIES: No edema. Full range of motion of all extremities, equal. NEUROLOGIC: No focal deficit. Cranial nerves II through XII are grossly intact. No headache, no double vision or headache. SKIN: Not dry. Intact. Turgor - normal. LYMPHATIC: No palpable lymph nodes/no lymphedema. MUSCULOSKELETAL: Normal joints with no swelling. Muscle tone is normal. LABS: Echocardiogram was difficulty because of pigeon shaped chest. The patient's mitral and aortic valves along with tricuspid didn't show any echogenic area consistent with vegetations. Otherwise his echo findings are unchanged. Mild aortic root dilatation, normal LV contractility. CONDITION: Stable. MTDD
--- NOTE | 2018-05-02 10:25 | CONS ---
DATE OF SERVICE: 04/29/18 CONSULT FOLLOWUP SUBJECTIVE: 72 year old white male was seen because of jaciel arrhythmias. The patient's rhythm strips are stable no pauses of more than 2 seconds noted and in fact the patient's heart rate is between 44 to 60 per minute with normal systolic blood pressure. He is practically symptomatic from bradycardia. REVIEW OF SYSTEMS: CONSTITUTIONAL: No night sweats. No fatigue, malaise, lethargy. No fever or chills. HEENT: Eyes: No visual changes. No eye pain. No eye discharge. ENT: No runny nose. No epistaxis. No sinus pain. No sore throat. No odynophagia. No ear pain. No congestion. RESPIRATORY: No cough, no congestion. No hemoptysis. CARDIOVASCULAR: No angina symptoms. No CHF symptoms. No atypical chest pain for CAD. No palpitations. No shortness of breath. GASTROINTESTINAL: No abdominal pain. No nausea or vomiting. No diarrhea or constipation. No hematemesis. No hematochezia. GENITOURINARY: No urgency. No frequency. No dysuria. No hematuria. No obstructive symptoms. No discharge. No pain. No significant abnormal bleeding. MUSCULOSKELETAL: No musculoskeletal pain. No joint swelling. No arthritis. NEUROLOGICAL: No headache. No neck pain. No syncope. No seizures. No dizziness. PSYCHIATRIC: Not anxious. No depression. No suicidal thoughts. No homicidal thoughts. SKIN: No rash. No lesions. No wounds. ENDOCRINE: No unexplained weight loss. No weight gain. HEMATOLOGIC/LYMPHATIC: No anemia. No purpura. No petechiae. No prolonged or excessive bleeding. No palpable lymph nodes. PHYSICAL EXAMINATION: GENERAL: The patient is alert. VITAL SIGNS: Normal vitals with systolic blood pressure in the range of 150- 160. HEENT: Head normocephalic, atraumatic. Eyes: Extraocular muscles are intact. Pupils are equal, round and reactive to light and accommodation. Ears: No lesions. Nose appeared normal. Throat: No exudate or erythema. NECK: Supple. No JVD, no carotid bruit. No lymphadenopathy or thyromegaly. LUNGS: Decreased breath sounds. Clear to auscultation. Percussion note normal. Chest symmetrical. HEART: S1, S2, no S3. No murmurs. No cyanosis or clubbing. No ascites. Pulses: Dorsalis pedis and posterior tibial pulses +1 to +2 both sides. Stable rhythm for now. ABDOMEN: Soft. Nontender. Bowel sounds active. No CVA tenderness. No mass felt. EXTREMITIES: No edema. Full range of motion of all extremities, equal. NEUROLOGIC: No focal deficit. Cranial nerves II through XII are grossly intact. No headache, no double vision or headache. SKIN: Not dry. Intact. Turgor - normal. LYMPHATIC: No palpable lymph nodes/no lymphedema. MUSCULOSKELETAL: Normal joints with no swelling. Muscle tone is normal. MTDD
== END 2018-05-01 09:23 | DRG 872 ==
LOC: UNDOADMIN 15:13 → SCU 15:13
PROVIDERS: ADMIT General Practice; ATTEND General Practice
DX: A41.9 Sepsis, unspecified organism (principal); K57.92 Diverticulitis of intestine, part unspecified, without perforation or abscess without bleeding; R10.9 Unspecified abdominal pain; R11.0 Nausea; R00.1 Bradycardia, unspecified; R79.89 Other specified abnormal findings of blood chemistry; E13.9 Other specified diabetes mellitus without complications; E87.6 Hypokalemia
CPT/HCPCS: 36415; 80069; 80202; 81001; 82962; 84132; 84145; 85651

== ENCOUNTER 2018-09-12 16:01 | Outpatient (CLI) ==
[2018-09-12 16:23] VITALS: BMI 24.5
== END 2018-09-12 16:09 | disposition critical access hospital (66) ==
LOC: AMBL 16:01
PROVIDERS: ATTEND Internal Medicine
DX: R50.9 Fever, unspecified (principal); R52 Pain, unspecified; R11.0 Nausea; R00.0 Tachycardia, unspecified

== ENCOUNTER 2018-09-12 16:19 | Emergency (ER) ==
[2018-09-12 16:23] VITALS: BP 97/59; TEMP 101.7; BMI 24.5
--- NOTE | 2018-09-12 17:48 | CT ---
EXAM: CT abdomen pelvis without contrast TECHNIQUE: Helical axial CT of the abdomen and pelvis was performed without contrast with coronal an d sagittal reconstructions. COMPARISON: Chest CT from today and CT pelvis from 04/25/2018 HISTORY: Abdominal pain FINDINGS: There is no acute abnormality. Specifically there is no mesenteric inflammation, free air, free fluid or bowel wall thickening or edema or pathologic lymph nodes or obstruction or ileus. The appendix is not seen. There are very extensive non inflamed mostly sigmoid colonic diverticula. The liver, spleen, pancreas,and adrenal glands show no acute abnormality. There is a small probable c yst in the right hepatic lobe of the liver. For lung base findings please see today's chest CT report . There is no hiatal hernia. There has been prior cholecystectomy. There is some mild post cholecyst ectomy dilatation of the common bile duct. There are no suspicious renal masses and no hydronephrosis. There is a large left renal cyst. There are no kidney stones. Both ureters demonstrate normal course and caliber. There is no filling defect in the urinary bladder. There are no abdominal wall hernias. There is advanced calcific atherosclerosis of the aorta. There a re no acute osseous abnormalities. IMPRESSION: 1. Extensive colonic diverticulosis with no acute inflammation at this time. There is no free air f ree fluid or obstruction or ileus. 2. Other miscellaneous findings as detailed above.
--- NOTE | 2018-09-12 17:55 | CT ---
EXAM: CT chest without contrast. HISTORY: Cough. Comparison: 04/24/2018. Technique: CT chest was performed without contrast. Axial, coronal and sagittal reconstructions wer e obtained. Findings: Lung window evaluation demonstrates minimal patchy airspace opacities at the posterior lower lungs bi laterally. Emphysema/chronic obstructive pulmonary disease is present. Streaky atelectasis or scarr ing seen at the lungs. There is a right middle lobe 7 mm nodule seen at axial image number 54 unchan ged from previous CT. Thoracic soft tissue evaluation demonstrates no definitive pathologically enlarged axillary lymphaden opathy identified. There is a precarinal mediastinal lymph node which appears mildly enlarged measur ing 1.9 x 1.0 cm in diameter at axial image number 29. Hilar lymphadenopathy is not well assessed in the absence of IV contrast. Cardiac size is within normal limits. The upper abdomen demonstrates a fluid density right hepatic lobe liver cyst measuring 1.5 cm in diam eter at axial image number 55. Cholecystectomy clips are present. There is a fluid density left kid marlon cyst present.. Bone window evaluation demonstrates thoracic spine degenerative changes. Impression: 1. Emphysema/chronic obstructive pulmonary disease. 2. Right middle lobe 7 mm nodule unchanged from previous CT. Recommend CT chest followup in 6 month s. 3. Minimal opacities at the lung bases suggesting minimal pneumonia infiltrate with concurrent atele ctasis. 4. Mild precarinal mediastinal lymphadenopathy/lymph node enlargement. 5. Atherosclerotic arterial vascular calcification/disease.
[2018-09-12] MEDS ORDERED: ROCEPHIN 1 GM in SODIUM CHLORIDE 50 ML IV STA (18:18)
--- NOTE | 2018-09-12 18:21 | ED.PDOC ---
General ED Provider: Dr. HEIDY MA Chief Complaint: Respiratory Complaint Stated Complaint: cough flu like symptoms Time Seen by Physician: 16:20 Mode of Arrival: Ambulance Information Source: Patient Exam Limitations: No limitations [facility] Nursing and Triage Documentation Reviewed and Agree: Yes Does patient meet sepsis criteria?: No System Inflammatory Response Syndrome: Not Applicable Sepsis Protocol: For patient's 13 years and over: Temp is 96.8 and below OR 101 and greater Pulse >90 BPM Resp >20/minute Acutely Altered Mental Status Are patient's symptoms suggestive of a new infection, such as: -Pneumonia -Skin, Soft Tissue -Endocarditis -UTI -Bone, Joint Infection -Implantable Device -Acute Abdominal Infection -Wound Infection -Meningitis -Blood Stream Catheter Infection -Unknown Respiratory Complaint Exam - Respiratory Complaint/Exam Symptoms Are: Still present Timing: Intermittent Initial Severity: Mild Current Severity: Mild Location: Nose, Throat, Chest Character: Reports: Non-productive cough, Dry cough Aggravating: Reports: None Alleviating: Reports: None Associated Signs and Symptoms: Reports: URI, Nasal congestion. Denies: Rapid breathing, Dyspnea, Fever, Chills, Chest pain, Pleuritic chest pain, Wheezing, Hemoptysis, Dizziness, Calf pain, Calf swelling, Edema, Hoarseness, Sinus discomfort, Vomiting, Sore throat, Weight loss, Decreased oral intake, Increased thirst, Increased appetite, Increased urination Related History: Reports: Similar episode History of Healthcare-Acquired Pneumonia: No Related Surgical History: Reports: None Pulmonary Embolism Risk Factors: Bedrest Cardiac Risk Factors: Reports: Diabetes, Hypertension Pseudomonas Risk Factors: Reports: None Tuberculosis Risk Factors: Reports: None Status Asthmaticus Risk Factors: Reports: None Home Oxygen Use: No Recent Stress Test: No Recent Echo/LV Function: No Current Antibiotic Use: No Current Asthma Medication Use: No Respiratory Distress: None Inadequate Respiratory Effort: No Dysphagia Present: No Stridor Present: No JVD Present: No Accessory Muscle Use: No Retractions: Not Present Diminished Breath Sounds: No Grunting Respirations: No Kussmaul Respirations: No Differential Diagnoses: Pneumonia, Bronchitis, URI Review of Systems - Review Of Systems Constitutional: Reports: Malaise Eyes: Reports: No symptoms Ears, Nose, Mouth, Throat: Reports: No symptoms Respiratory: Reports: Cough Cardiac: Reports: No symptoms GI: Reports: No symptoms : Reports: No symptoms Musculoskeletal: Reports: No symptoms Skin: Reports: No symptoms Neurological: Reports: No symptoms Endocrine: Reports: No symptoms Hematologic/Lymphatic: Reports: No symptoms All Other Systems: Reviewed and Negative Past Medical History - Past Medical History Previously Healthy: No Endocrine: Reports: DM 2 Cardiovascular: Reports: Hypertension, Other (Bradycaria ,old record - inoperable left carotid aneurysm) Respiratory: Reports: None Hematological: Reports: None Gastrointestinal: Reports: GERD Genitourinary: Reports: None, Other (old record-acute renal failure) Neuro/Psych: Reports: CVA, Anxiety, Depression, 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 ), Other (old recordneuropathy) Musculoskeletal: Reports: Arthritis, Back Pain, Joint Pain Cancer: Reports: None Other Pertinent Past Medical History: Left carotid aneurysm, Chronic back pain and chronic neck pain - Surgical History General Surgical History: Reports: Cholecystectomy, Back Surgery, Other ( carotid endarterectomy ) - Family History Family History: Reports: Heart (old record-father [place]), Diabetes (old record-5 siaters 3 brothers), Cancer (old record-father), Other (old record- brother with aids) - Social History Smoking Status: Former smoker Hx Substance Use: No Alcohol Screening: None - Immunizations Influenza Vaccine within 12 Months: No Pneumococcal Vaccine up to Date: No Physical Exam - Physical Exam Appearance: Well-appearing, No pain distress, Well-nourished Eyes: MAXWELL, EOMI, Conjunctiva clear ENT: Ears normal, Nose normal, Oropharynx normal Respiratory: Rhonchi Cardiovascular: RRR, Pulses normal, No rub, No murmur GI/: Soft, Nontender, No masses, Bowel sounds normal, No Organomegaly Musculoskeletal: Normal strength, ROM intact, No edema, No calf tenderness Skin: Warm, Dry, Normal color Neurological: Sensation intact, Motor intact, Reflexes intact, Cranial nerves intact, Alert, Oriented Psychiatric: Affect appropriate, Mood appropriate Interpretation - Radiology Interpretation Radiology Interpretation By: Radiologist Radiology Results: Positive (minimal infiltrate) - Retail Marketing Specialist Rhythm: Other - EKG Interpretation Rate: Normal Critical Care Note - Critical Care Note Total Time (mins): 0 Course - Course Hematology/Chemistry: 09/12/18 16:50 09/12/18 16:50 Orders, Labs, Meds: Lab Review 09/12/18 09/12/18 09/12/18 16:35 16:50 16:50 WBC 8.14 RBC 3.80 L Hgb 11.2 L Hct 34.4 L MCV 90.5 MCH 29.5 MCHC 32.6 RDW Coeff of Franko 13.4 Plt Count 169 Immature Gran % (Auto) 0.2 Neut % (Auto) 91.1 Lymph % (Auto) 3.7 L Jefferson % (Auto) 4.8 Eos % (Auto) 0.0 Baso % (Auto) 0.2 Immature Gran # (Auto) 0.0 Neut # (Auto) 7.4 H Lymph # (Auto) 0.3 L Jefferson # (Auto) 0.4 Eos # (Auto) 0.0 Baso # (Auto) 0.0 PT 11.2 H INR 1.12 APTT 30.0 Puncture Site Lbrach O2 Saturation 91.0 L ABG pH 7.409 ABG pCO2 45.0 ABG pO2 60.0 L ABG HCO3 28.5 H ABG Total CO2 30 H ABG Base Excess 4 H FiO2 % 21.0 Sodium Potassium Chloride Carbon Dioxide Anion Gap BUN Creatinine Estimated GFR (MDRD) BUN/Creatinine Ratio Glucose Lactic Acid Calcium Total Bilirubin AST ALT Alkaline Phosphatase Total Creatine Kinase CK-MB (CK-2) CK-MB (CK-2) % Troponin I Total Protein Albumin Globulin Albumin/Globulin Ratio Procalcitonin Influ A Molecular Assay Influ B Molecular Assay 09/12/18 09/12/18 09/12/18 16:50 16:50 16:50 WBC RBC Hgb Hct MCV MCH MCHC RDW Coeff of Franko Plt Count Immature Gran % (Auto) Neut % (Auto) Lymph % (Auto) Jefferson % (Auto) Eos % (Auto) Baso % (Auto) Immature Gran # (Auto) Neut # (Auto) Lymph # (Auto) Jefferson # (Auto) Eos # (Auto) Baso # (Auto) PT INR APTT Puncture Site O2 Saturation ABG pH ABG pCO2 ABG pO2 ABG HCO3 ABG Total CO2 ABG Base Excess FiO2 % Sodium 138.8 Potassium 3.74 Chloride 100.0 Carbon Dioxide 28.3 Anion Gap 14.24 BUN 28.0 H Creatinine 0.98 Estimated GFR (MDRD) 75.00 BUN/Creatinine Ratio 28.57 Glucose 170.7 H Lactic Acid 1.41 Calcium 8.85 Total Bilirubin 0.70 AST 19.4 ALT 16.7 Alkaline Phosphatase 97.9 Total Creatine Kinase 132.3 CK-MB (CK-2) 1.200 CK-MB (CK-2) % 0.9000 Troponin I < 0.012 Total Protein 6.78 Albumin 4.21 Globulin 2.57 Albumin/Globulin Ratio 1.63 Procalcitonin < 0.05 Influ A Molecular Assay Influ B Molecular Assay 09/12/18 16:50 WBC RBC Hgb Hct MCV MCH MCHC RDW Coeff of Franko Plt Count Immature Gran % (Auto) Neut % (Auto) Lymph % (Auto) Jefferson % (Auto) Eos % (Auto) Baso % (Auto) Immature Gran # (Auto) Neut # (Auto) Lymph # (Auto) Jefferson # (Auto) Eos # (Auto) Baso # (Auto) PT INR APTT Puncture Site O2 Saturation ABG pH ABG pCO2 ABG pO2 ABG HCO3 ABG Total CO2 ABG Base Excess FiO2 % Sodium Potassium Chloride Carbon Dioxide Anion Gap BUN Creatinine Estimated GFR (MDRD) BUN/Creatinine Ratio Glucose Lactic Acid Calcium Total Bilirubin AST ALT Alkaline Phosphatase Total Creatine Kinase CK-MB (CK-2) CK-MB (CK-2) % Troponin I Total Protein Albumin Globulin Albumin/Globulin Ratio Procalcitonin Influ A Molecular Assay Negative by naat Influ B Molecular Assay Negative by naat Orders Category Date Time Status ABG DRAW REQUEST Stat CARDIO 09/12/18 16:35 Ordered EKG-(ED ONLY) Stat CARDIO 09/12/18 16:34 Ordered ED IV/MEDIPORT/POWERPORT .ONCE EMERGENCY 09/12/18 16:34 Ordered ABG Stat LAB 09/12/18 16:35 Ordered BLOOD CULTURE Stat LAB 09/12/18 16:35 Ordered CBC W/ AUTO DIFF Stat LAB 09/12/18 16:34 Ordered COMPREHENSIVE METABOLIC PANEL Stat LAB 09/12/18 16:34 Ordered CREATINE KINASE Stat LAB 09/12/18 16:34 Ordered FLU A/B MOLECULAR Stat LAB 09/12/18 16:34 Uncollected LACTIC ACID Stat LAB 09/12/18 16:34 Ordered MOLECULAR GROUP A STREP Stat LAB 09/12/18 16:34 Uncollected PARTIAL THROMBOPLASTIN TIME Stat LAB 09/12/18 16:34 Ordered PROCALCITONIN Stat LAB 09/12/18 16:34 Ordered PT WITH INR Stat LAB 09/12/18 16:34 Ordered TROPONIN I Stat LAB 09/12/18 16:34 Ordered URINALYSIS C & S IF INDICATED Stat LAB 09/12/18 16:34 Uncollected 0.9 % Sodium Chloride [Saline Flush] MEDS 09/12/18 16:34 Ordered 1 syr IVF PRN PRN Ceftriaxone Sodium [Rocephin] 1 gm MEDS 09/12/18 18:18 Ordered 0.9 % Sodium Chloride [Sodium Chloride] [address] ABDOMEN/PELVIS WO CONTRAST Stat RADS 09/12/18 16:[address] CHEST W/O CONTRAST Stat RADS 09/12/18 16:35 Ordered Medications Generic Name Dose Route Start Last Admin Trade Name Freq PRN Reason Stop Dose Admin Ceftriaxone Sodium 1 gm/ 50 mls @ 75 mls/hr 09/12/18 18:18 Sodium Chloride IV 09/12/18 18:57 ONCE STA Sodium Chloride 1 syr 09/12/18 16:34 Saline Flush IVF PRN PRN To flush IV Vital Signs: Temp Pulse Resp BP Pulse Ox 09/12/18 16:20 101.7 F H 109 H 20 97/59 L 89 L Departure - Departure Time of Disposition: 18:22 Disposition: HOME SELF-CARE Discharge Problem: Pneumonia Qualifiers: Pneumonia type: due to unspecified organism Instructions: Pneumonia (ED) Condition: Good Pt referred to PMD for follow-up: Yes IPMP verified?: No Additional Instructions: Please call your Family Physician as soon as possible to schedule a follow-up appointment. Allergies/Adverse Reactions: Allergies No Known Allergies Allergy (Verified 09/12/18 16:29) Home Medications: Ambulatory Orders Apixaban [Eliquis] 5 mg PO BID 02/22/18 Bisacodyl [Dulcolax] 10 mg RC DAILY PRN 02/22/18 Clonidine HCl [Catapres] 0.2 mg PO BID 02/22/18 Docusate Sodium [Colace] 100 mg PO DAILY 02/22/18 Magnesium Hydroxide [Milk of Magnesia] 30 ml PO ONCE PRN 02/22/18 Olanzapine [Zyprexa] 5 mg PO DAILY 02/22/18 Pantoprazole Sodium [Protonix] 40 mg PO QDAC 02/22/18 Sennosides [Senna] 17.2 mg PO DAILY 02/22/18 Torsemide [Demadex] 20 mg PO QDAC #30 tablet 02/28/18 Cyanocobalamin (Vitamin B-12) [Vitamin B-12] 1,000 mcg IM DAILY vial 05/01/18 Acetaminophen 650 mg PO Q4H PRN 09/12/18 Ferrous Sulfate 325 mg PO DAILY 09/12/18 Metoprolol Succinate 25 mg PO DAILY 09/12/18 Multivitamin with Minerals [Multivitamins with Minerals] 1 each PO DAILY
[2018-09-12] MEDS ORDERED: ZITHROMAX PO STA (18:24)
[2018-09-12] MEDS ORDERED: ROCEPHIN ONE (18:28)
== END 2018-09-12 19:34 | disposition home or self-care (01) ==
LOC: ED 16:19
DX: R06.9 Unspecified abnormalities of breathing (principal); R05 Cough; J06.9 Acute upper respiratory infection, unspecified; R09.81 Nasal congestion; R53.81 Other malaise; J18.9 Pneumonia, unspecified organism
CPT/HCPCS: 36415; 80053; 82550; 82553; 82803; 83605; 84145; 84484; 85025; 85610; 85730; 87040; 87502; 87651; 93005; 93010; 96365; 99284